=== PATIENT | female | born 1940 | race Caucasian/White ===

== ENCOUNTER → 2018-03-24 09:41 | Outpatient (CLI) | payer MEDICARE, SELFPAY ==
--- NOTE | 2018-03-24 09:47 | BI_ITS ---
MAMMOGRAPHY - UNILATERAL SCREENING: RIGHT BREAST REASON FOR EXAM: Female, 77 years old. Routine annual screening examination (unilateral). PERTINENT HISTORY: Personal history of breast cancer status post left mastectomy. TECHNIQUE: TECHNIQUE: Digital examination. Mediolateral oblique (MLO) and craniocaudad (CC) views of both breasts were obtained. CAD: Full Field Digital Mammography with Computer Added Detection was performed. COMPARISON: March 14, 2017, March 12, 2016 FINDINGS: Breast Composition: The breasts are almost entirely fatty. There are no dominant masses or suspicious calcifications. No other significant abnormalities are identified. BI/UNILAT RT SCRN W/CAD IMPRESSION: Stable bilateral screening mammogram. ASSESSMENT CATEGORY: BIRADS Category 2: Benign. A letter regarding these results will be sent to the patient by the facility within 30 days. FOLLOW UP RECOMMENDATION: Yearly follow up mammogram recommended. (A) Approximately 10% of breast cancers are not detected by mammography. A normal mammogram should not delay biopsy of a clinically suspicious abnormality. [id number] Electronically Signed: Parth Kulkarni MD at 18:03 EDT , Service support ,
== END ==
PROVIDERS: Family Provider Preventive Medicine Occupational Medicine; PCP Preventive Medicine Occupational Medicine
DX: Z12.31 Encounter for screening mammogram for malignant neoplasm of breast (principal)
CPT/HCPCS: 77061; 77067; G0279

== ENCOUNTER → 2019-03-27 | Outpatient (CLI) | payer MEDICARE, SELFPAY ==
--- NOTE | 2019-03-27 10:33 | BI_ITS ---
MAMMOGRAPHY - BILATERAL SCREENING REASON FOR EXAM: Female, 78 years old. Routine annual screening examination. PERTINENT HISTORY: Personal history of breast cancer. Prior left mastectomy. Aunt with breast cancer. TECHNIQUE: Digital bilateral breast scout (3D mammographic acquisition) in the CC and MLO projections. 2-D mediolateral oblique (MLO) and craniocaudad (CC) views of both breasts were obtained. CAD: Full Field Digital Mammography with Computer Added Detection was performed. COMPARISON: Comparison is made with prior study dated March 24, 2018 and March 14, 2017. FINDINGS: Breast Composition: There are scattered areas of fibroglandular density. There are no dominant masses or suspicious calcifications. No other significant abnormalities are identified. There has been no significant change since the prior study. BI/SCREEN MAMM (CAD) W/SCOUT UNI R IMPRESSION: Stable bilateral screening mammogram. Yearly follow-up mammogram recommended. (A) ASSESSMENT CATEGORY: BIRADS Category 1: Negative. A letter regarding these results will be sent to the patient by the facility within 30 days. Approximately 10% of breast cancers are not detected by mammography. A normal mammogram should not delay biopsy of a clinically suspicious abnormality. [id number] Electronically Signed: Art Pardo, at 14:01 EDT , Service support ,
== END | disposition home or self-care (01) ==
LOC: OPBI 10:29
PROVIDERS: Family Provider Preventive Medicine Occupational Medicine; PCP Preventive Medicine Occupational Medicine
DX: Z12.31 Encounter for screening mammogram for malignant neoplasm of breast (principal)
CPT/HCPCS: 77061; 77067; G0279

== ENCOUNTER → 2020-03-28 09:53 | Outpatient (CLI) | payer MEDICARE, SELFPAY ==
--- NOTE | 2020-03-28 09:54 | BI_ITS ---
MAMMOGRAPHY - UNILATERAL SCREENING: RIGHT BREAST REASON FOR EXAM: Female, 79 years old. Routine annual screening examination (unilateral). PERTINENT HISTORY: Personal history of breast cancer. Prior left mastectomy and chemotherapy.. TECHNIQUE: Digital unilateral breast scout (3D mammographic acquisition) in the CC and MLO projections. 2-D mediolateral oblique (MLO) and craniocaudad (CC) views of both breasts were obtained. CAD: Full Field Digital Mammography with Computer Added Detection was performed. COMPARISON: Comparison is made with prior study dated March 27, 2019 and March 24, 2018. FINDINGS: Breast Composition: There are scattered areas of fibroglandular density. There are no dominant masses or suspicious calcifications. No other significant abnormalities are identified. There has been no significant change since the prior study. BI/SCREEN MAMM (CAD) W/SCOUT UNI R IMPRESSION: Stable unilateral screening mammogram. Yearly follow-up mammogram recommended. (A) ASSESSMENT CATEGORY: BIRADS Category 1: Negative. A letter regarding these results will be sent to the patient by the facility within 30 days. Approximately 10% of breast cancers are not detected by mammography. A normal mammogram should not delay biopsy of a clinically suspicious abnormality. [id number] Electronically Signed: Art Pardo, at 10:45 EDT , Service support ,
== END ==
PROVIDERS: PCP Preventive Medicine Occupational Medicine; Referring Provider Preventive Medicine Occupational Medicine; Visit Provider Preventive Medicine Occupational Medicine
DX: Z12.31 Encounter for screening mammogram for malignant neoplasm of breast (principal)
CPT/HCPCS: 77063; 77067

== ENCOUNTER → 2021-04-10 13:18 | Outpatient (CLI) | payer MEDICARE, SELFPAY ==
--- NOTE | 2021-04-10 13:23 | BI_ITS ---
MAMMOGRAPHY - UNILATERAL SCREENING: RIGHT BREAST REASON FOR EXAM: Female, 80 years old. Routine annual screening examination (unilateral). PERTINENT HISTORY: Personal history of breast cancer. The patient is status post left mastectomy. TECHNIQUE: Digital unilateral breast scout (3D mammographic acquisition) in the CC and MLO projections. 2-D mediolateral oblique (MLO) and craniocaudad (CC) views of both breasts were obtained. CAD: Full Field Digital Mammography with Computer Added Detection was performed. COMPARISON: Comparison is made with prior examination dated 03/28/2020 and 03/27/2019. FINDINGS: Breast Composition: There are scattered areas of fibroglandular density. There are no dominant masses or suspicious calcifications. There are 2 small well defined nodules in the upper lateral portion of the right breast. The largest measures 6.5 mm and most likely represents a small cyst. Correlation with ultrasound is recommended. No other significant abnormalities are identified. BI/SCREEN MAMM (CAD) W/SCOUT UNI R IMPRESSION: Small well-defined nodular density seen in the upper lateral aspect of the right breast as described. Correlation with ultrasound is recommended. ASSESSMENT CATEGORY: BIRADS Category 0: Incomplete. Need additional imaging evaluation. A letter regarding these results will be sent to the patient by the facility within 30 days. Approximately 10% of breast cancers are not detected by mammography. A normal mammogram should not delay biopsy of a clinically suspicious abnormality. [id number] Electronically Signed: Art Pardo MD at 14:47 EDT , Service support ,
== END ==
PROVIDERS: PCP Preventive Medicine Occupational Medicine; Referring Provider Preventive Medicine Occupational Medicine; Visit Provider Preventive Medicine Occupational Medicine
DX: Z12.31 Encounter for screening mammogram for malignant neoplasm of breast (principal)
CPT/HCPCS: 77063; 77067

== ENCOUNTER → 2021-04-17 12:43 | Outpatient (CLI) | payer MEDICARE, SELFPAY ==
--- NOTE | 2021-04-17 12:45 | US_ITS ---
STUDY: ULTRASOUND BREAST - RIGHT REASON FOR EXAM: Female, 80 years old. TECHNIQUE: Axial and longitudinal images of the RIGHT breast were performed with a high resolution ultrasound transducer. # OF IMAGES: 52 COMPARISON: None. FINDINGS: RIGHT Breast: There is 0.5 cm cyst involving the right breast at 12 o''clock. There is another tiny cyst measures 0.38 cm at the 11 o''clock this is 3 cm from the nipple. No other masses or cysts. Electronically Signed: Addie Duarte, at 15:02 EDT Tel , Service support , US/Breast Limited Unilateral
== END ==
PROVIDERS: PCP Preventive Medicine Occupational Medicine; Referring Provider Preventive Medicine Occupational Medicine; Visit Provider Preventive Medicine Occupational Medicine
DX: N60.01 Solitary cyst of right breast (principal)
CPT/HCPCS: 76642

== ENCOUNTER 2021-05-26 13:00 | Outpatient (RCR) | payer MEDICARE, SELFPAY ==
--- NOTE | 2021-04-28 13:36 | HP.PTEVAL_ITS ---
Patient's Visit Information TIFFANY DOMÍNGUEZ is a 80 year old F referred to Physical Therapy by Dr. Michael Moore DO with a diagnosis of Imbalance. Date of Evaluation: 04/28/21 Physical Therapist: ELENI Saxena - Visit Plan Frequency: 2x /Week Duration: 6 Weeks Plan: 2X/ week for 6 weeks for balance activities, gait training, LE strengthening, functional activities, with HEP - Subjective Pt reports that she has not fallen for 2 months now. She walks with WBQC and is very unsteady. 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 She reports that she has fallen before. She reports that she does have feeling in her feet. She reports that her R leg will collapse on her and reports weakness on that side. She has to go up stairs one step at a time with a railing. She has steps at home but does not have to use them everyday. Her bed and bath are all on one floor. She lives with her . She stopped driving. Sit to stand she has to use her arms to get out of a chair. She has a raised toilet seat with handles. No dizziness. Sometimes she gets right parker discomfort a couple times a week. If she were to fall she would not be able to get up from the floor by herself. Her can not lift her when she falls. She does only a little bit of cooking cause she eats out. Her does the laundry cause it is on a different floor. She sleeps good at night. Pt would like to get to the point where she can drive. Pt feels that she may be getting alzheimers as her mom had it.... and she is having memory issues. - Objective Gait: walks with short steps, decrease DF, decrease stride, decrease proper use of her WBQC, and imbalance. She will stop and grap therapist or other bject to regroup her balance. Pt requires min A walking into the dept. Posture: fW head posture and rounded shoulders and trunk. Sit to stand: uses B UE to push self up and holds onto the chair for quite awhile to make sure she has her balance. LE MMT: B hip flex 4-/5, Knee ext and flex 4/5, B hip abd/add in supine 4-/5, Bridge (1/2 normal ROM). Gait with a front wheeled walker... needed encouragement to walk faster but walked with more of an even stride and more of a smoother gait pattern. Pt is able to move one foot to each direction in a side stepping motion with min A of therapist. Pt is able to do standing heel and toe raises with mod A for balance by therapist. Tinetti 7 - Balance Scores Tinetti Balance Score: 5 Tinetti Gait Score: 2 Tinetti Balance & Gait Score: 7 - Goals Goal 1:: I HEP Goal Time Frame: 4-6 Weeks Goal 2:: Increase LE strength to be able to get out of a chair with 1 arm on the chair on first attempt X 10 Goal Time Frame: 4-6 Weeks Goal 3:: Be able to walk with least restrictive device with SBA with smooth gait pattern and equal step length. Goal Time Frame: 4-6 Weeks Goal 4:: Score 12 point in Tinetti to decrease fall risk up from a 7 at eval Goal Time Frame: 4-6 Weeks Goal 5:: Sit and walk with more upright posture Goal Time Frame: 4-6 Weeks - Rehabilitation Potential Rehabilitation Potential: Good - Anticipated Interventions Patient/Client Instruction: Educate patient on: Condition, Plan of Care For the Purpose of:: To decrease pain, To improve nutrient delivery to tissue, To increase oxygenation perfusion, To improve muscle performance and motor function, To improve ability to perform ADL's, To increase tolerance to activity/condition/position, To improve performance and independence with ADL's, To decrease level of supervision to perform tasks, To improve ability of physical actions for home/community/work/leisure, To improve gait and locomotor functions, To improve health of tissue, To decrease soft tissue restriction, To increase flexibility/ROM, To improve endurance, To improve balance, To improve safety with gait Therapeutic Exercise to Include: Strength training, Endurance training, Balance training, Coordination, Postural training, Flexibilty training, Gait and locomotor training, Neuromotor development, Active ROM, Dynamic Lumbar Stabilization For the Purpose of:: To decrease pain, To improve nutrient delivery to tissue, To improve muscle performance and motor function, To improve ability to perform ADL's, To increase tolerance to activity/condition/position, To improve performance and independence with ADL's, To decrease level of supervision to perform tasks, To improve ability of physical actions for home/community/work/leisure, To improve gait and locomotor functions, To improve health of tissue, To decrease soft tissue restriction, To increase flexibility/ROM, To improve endurance, To improve balance, To improve safety with gait, To improve safety Functional Training to Include: ADL Training, Gait training For the Purpose of:: To improve muscle performance and motor function, To improve ability to perform ADL's, To increase tolerance to activity/con dition/position, To improve performance and independence with ADL's, To decrease level of supervision to perform tasks, To improve ability of physical actions for home/community/work/leisure, To improve gait and locomotor functions, To improve health of tissue, To decrease soft tissue restriction, To improve endurance, To improve balance, To improve safety with gait Thank you for the opportunity to evaluate your patient. For Medicare and Medicare HMO plans, please review the plan of care and approve it. It will need to be FAXED BACK to us at [phone] for Medicare purposes. For Medicare only, by signing this I certify the plan of care. Please let me know if there are questions or concerns regarding this plan of care. Physician Signature: Date:
--- NOTE | 2021-05-26 14:35 | HP.PTDCSUM ---
It has been my pleasure to treat TIFFANY DOMÍNGUEZ referred by Dr. Michael Moore DO, with the diagnosis of Imbalance for a total of 9 visit(s). Discharge Date: 05/26/21 Please see the following information for a summary of their discharge status. Subjective: Pt walking in with a front wheeled walker today. She reports that she feels that she can do more with her walker and feels more stable. She has an indoor walker that she uses all the time and also an out door walker. Pt wants to continue wtih her HEP for now. bilat knees Pain Intensity (Out of 10): 1 % Improvement: 50 Objective/Function: Gait: pt walks with a faster makayla with her front wheeled walker but needs verbal cues to go heel to toe. Stairs: up and down stairs step two pattern with 2 hand rails. Tinetti 20 Goal 1:: I HEP Goal Progress: Goal Met Goal 2:: Increase LE strength to be able to get out of a chair with 1 arm on the chair on first attempt X 10 Goal Progress: Progressing Goal 3:: Be able to walk with least restrictive device with SBA with smooth gait pattern and equal step length. Goal Progress: Goal Met Goal 4:: Score 12 point in Tinetti to decrease fall risk up from a 7 at eval Goal Progress: Goal Met Goal 5:: Sit and walk with more upright posture Goal Progress: Goal Met Plan: DC PT to HEP Discharge Comments: DC PT to HEP previously given If there are questions or concerns regarding this patient's physical therapy, please feel free to call me at [phone]. Thank you for the referral of this patient. Sincerely, Jennifer Cam, MPT Balance/Gait/Functional tests - Balance/Special Test Scores Tinetti Balance Score: 12 Tinetti Gait Score: 8 Tinetti Balance & Gait Score: 20 Lower Extremity Functional Score: 45
== END 2021-05-26 19:00 | disposition home or self-care (01) ==
LOC: PT 13:00
PROVIDERS: PCP Preventive Medicine Occupational Medicine; Referring Provider Preventive Medicine Occupational Medicine; Visit Provider Preventive Medicine Occupational Medicine
DX: R26.89 Other abnormalities of gait and mobility (principal)
CPT/HCPCS: 97110; 97116; 97162; 97530

== ENCOUNTER 2022-04-02 20:53 | Observation (INO) | payer MEDICARE, SELFPAY ==
[2022-04-02 20:55] VITALS: BP 152/62; PULSE 98; RESP 16; TEMP 36.9; O2SAT 98; BMI 27.6
--- NOTE | 2022-04-02 21:13 | EKG12_ITS ---
Test Reason : DYSRHYTHMIA Blood Pressure : / mmHG Vent. Rate : 084 BPM Atrial Rate : 084 BPM P-R Int : 118 ms QRS Dur : 088 ms QT Int : 378 ms P-R-T Axes : 060 026 059 degrees QTc Int : 446 ms Normal sinus rhythm Nonspecific ST and T wave abnormality Abnormal ECG Confirmed by FLORY PATTERSON, SORAYA ([id number]), market editor DONTE LAGUNA ([id number]) on 04/05/2022 10:50:22 AM Referred By: MAVERICK Confirmed By:SORAYA RUTH MD
--- NOTE | 2022-04-02 21:13 | RAD_ITS ---
STUDY: AP PORTABLE UPRIGHT CHEST X-RAY OF 2124 HOURS ON 04/02/2022 REASON FOR EXAM: 81-year-old female with cough. TECHNIQUE: A single view portable AP upright chest x-ray was performed per protocol. COMPARISON: None. FINDINGS: Mild demineralization. No cardiomegaly. Mild emphysema. No pulmonary infiltrates, atelectasis, effusion, or pulmonary mass lesions. No pneumonia, pneumonitis, or bronchitis. RAD/Chest 1 View (Portable) IMPRESSION: 1. Mild emphysema. 2. No other evidence of active cardiopulmonary disease. 3. Mild demineralization. Electronically Signed: Markus Jane MD at 22:05 EDT ,
[2022-04-02] MEDS: Benzonatate 100 MG Capsule PO (21:21)
[2022-04-02 21:23] LABS: Absolute Lymphocyte Count 1.06 X10^3/uL (0.83-4.51); Absolute Neutrophil Count 6.2 X10^3/uL (2.0-7.7); Basophil# 0.03 X10^3/uL; Basophil% 0.4 % (0-1); Eosinophil# 0.12 X10^3/uL; Eosinophils% 1.4 % (0-5); Hematocrit 37.2 % (37-47); Hemoglobin 12.6 g/dL (12.0-15.0); Lymphocyte # 1.06 X10^3/ul (0.83-4.51); Lymphocyte % 12.5 % (19-41); Mean Corp Hgb Conc 33.9 g/dL (32-36); Mean Corpuscular Hgb 30.7 pg (27.0-32.0); Mean Corpuscular Volume 90.7 fL (81-99); Mean Platelet Vol. 9.7 fl (6.2-12.0); Monocyte% 11.8 % (0-10); NRBC Flagged by Analyzer 0 % (0-5); Neutrophil # 6.24 X10^3/uL (2.7-7.7); Neutrophil % 73.4 % (47-70); Platelet Count 200 K/mm3 (150-450); RBC Distribution Width CV 13.6 % (11.6-14.6); RBC Distribution Width SD 45.1 fl (35.1-43.9); White Blood Count 8.5 K/mm3 (4.4-11.0)
[2022-04-02 21:45] LABS: Bacteria 0 SEEN /hpf (None Seen); Mucous, Urine 0 SEEN /hpf (<or=2+); Red Blood Cells-Urine 0 SEEN /hpf (0-5); Squamous Epithelial Cells - UA 0 SEEN /hpf (5-10); White Blood Cells 0 SEEN /hpf (0-5)
[2022-04-02 21:53] LABS: Anion Gap 6 (5-15); BUN 28 mg/dL (7-18); BUN/Creat Ratio 20.7 RATIO (10-20); Calcium,Total 9.7 mg/dL (8.5-10.1); Chloride 102 mmol/L (98-107); Creatinine, Serum 1.35 mg/dL (0.55-1.02); EST Glomerular Filtration Rate 40 mL/min (>60); Est Glom Filt Rate - Afr Amer 49 mL/min (>60); Estimated Creatinine Clearance 31.63 ml/min; Glucose 147 mg/dL (74-106); Potassium 3.9 mmol/L (3.5-5.1); Sodium Level 135 mmol/L (136-145); Troponin-I HS 13 pg/mL (3.0-54.0)
[2022-04-02 21:59] LABS: Color, Urine Yellow (Yellow); Glucose, Dipstick Normal (Normal); Ketone-Dipstick Negative (Negative); Leukocyte Esterase-Dipstick Negative /ul (Negative); Nitrite-Dipstick Negative (Negative); Occult Blood-Urine Negative /ul (Negative); Protein-Dipstick 15 mg/dl (Negative); Urine Bilirubin Dipstick Negative (Negative); Urine Clarity Clear (Clear); Urine Urobilinogen Normal (Normal)
[2022-04-02 22:36] VITALS: BP 143/73; PULSE 85; RESP 18; O2SAT 99
--- NOTE | 2022-04-02 22:56 | EX.ED.DYSGE1 ---
HPI History of Present Illness Chief Complaint: Weakness Informant: patient, spouse/S.O. and family Onset/Context/Timing Onset: Days (3 days) Context: Gradual Onset Timing: Waxes and wanes Narrative Narrative: Patient presents via EMS secondary to generalized weakness. She has had cough and URI symptoms for the last 3 days as well. She did fall tonight. As she was trying to sit in her chair she slipped off the edge and fell to the floor. She denies injury. has had been having more trouble assisting her with ambulation at home secondary to her weakness. She has not had fever or chills. She is coughing up clear sputum. She states when she coughs she has abdominal pain. No urinary symptoms. [facility] Medical History Breast cancer Hydrocephalus Hyperlipidemia Hypertension Home Medications allopurinol 300 mg PO DAILY 04/02/22 [History Last Taken Unknown] atenolol-chlorthalidone 50 tab PO DAILY 04/02/22 [History Last Taken Unknown] lovastatin 20 mg PO DAILY 04/02/22 [History Last Taken Unknown] Allergy/AdvReac Type Severity Reaction Status Date / Time No Known Allergies Allergy Verified 04/02/22 20:59 Surgical History H/O left mastectomy H/O: hysterectomy Social History Smoking Status: Never smoker ROS ROS ED Constitutional Constitutional ED: Denies chills or fever(s) Eyes Eyes: Denies change in vision ENT ENT ED: Denies sore throat Cardiovascular Cardiovascular: Denies chest pain Respiratory/Chest Respiratory/Chest: Reports cough and sputum; Denies dyspnea Gastrointestinal Gastrointestinal: Denies abdominal pain, nausea or vomiting Genitourinary Genitourinary ED: Denies dysuria Musculoskeletal Musculoskeletal: Denies back pain Integumentary Denies rash Neurologic Neurologic: Reports weakness; Denies headache(s) or paresthesias Allergic/Immunologic Allergic/Immunologic ED: Denies urticaria EXAM Physical Exam Const Vital Signs: 04/02/22 20:55 04/02/22 22:36 Temperature 98.4 F Temperature Source Oral Pulse Rate 98 85 Respiratory Rate 16 18 Blood Pressure 152/62 H 143/73 H Blood Pressure Mean 92 96 Pulse Ox 98 99 Oxygen Delivery Method Room Air Room Air Positive well nourished and well developed General Appearance ED: well developed HEENT Reports moist mucous membranes Eyes PERRL and EOMs intact bilaterally Neck supple Chest Wall inspection of chest normal and palpation of chest normal Resp normal respiratory effort and clear to auscultation bilaterally Cardio regular rate and regular rhythm GI non-tender Auscultation: hypoactive bowel sounds Palpation: soft Extremity normal to inspection Neuro oriented x3 Neuro Narrative: No focal neurologic deficits. Sensorium / Orientation: alert Psych mental status grossly normal Skin no rashes or lesions noted MDM MDM MDM Narrative Medical decision making narrative: COVID and influenza swab sent. Chest x-ray and urinalysis ordered. Lab work obtained. Patient given Tessalon Perles for cough. Lab Data Attestation: I reviewed the patient's lab results. Labs: Laboratory Results - last 24 hr 04/02/22 04/02/22 04/02/22 21:15 21:15 21:38 WBC 8.5 RBC 4.10 L Hgb 12.6 Hct 37.2 MCV 90.7 MCH 30.7 MCHC 33.9 RDW Std Deviation 45.1 H RDW Coeff of Ari 13.6 Plt Count 200 MPV 9.7 Immature Gran % (Auto) 0.500 Neut % (Auto) 73.4 H Lymph % (Auto) 12.5 L Mellette % (Auto) 11.8 H Eos % (Auto) 1.4 Baso % (Auto) 0.4 Absolute Neuts (auto) 6.2 Absolute Lymphs (auto) 1.06 Nucleated RBC % 0 Sodium 135 L Potassium 3.9 Chloride 102 Carbon Dioxide 27.0 Anion Gap 6 BUN 28 H Creatinine 1.35 H Estim Creat Clear Calc 31.63 Est GFR (MDRD) Af Amer 49 L Est GFR (MDRD) Non-Af 40 L BUN/Creatinine Ratio 20.7 H Glucose 147 H Calcium 9.7 Troponin I High Sens 13 Urine Color Yellow Urine Clarity Clear Urine pH 6.0 Ur Specific [place] 1.020 Urine Protein 15 H Urine Glucose (UA) Normal Urine Ketones Negative Urine Occult Blood Negative Urine Nitrite Negative Urine Bilirubin Negative Urine Urobilinogen Normal Ur Leukocyte Esterase Negative Urine RBC 0 SEEN Urine WBC 0 SEEN Ur Squamous Epith Cells 0 SEEN Urine Bacteria 0 SEEN Urine Mucus 0 SEEN Radiography Chest X-Ray - ED: 1 View, Read by ED Physician and Chronic Changes Diagnostic Testing: Clinical Impression(s) from Imaging Studies Chest X-Ray 04/02/22 21:13 IMPRESSION: 1. Mild emphysema. 2. No other evidence of active cardiopulmonary disease. 3. Mild demineralization. Electronically Signed: Markus Jane MD at 22:05 EDT , EKG Initial EKG: Attestation: I personally reviewed and interpreted this EKG as follows: Interpretation: Sinus Rhythm (Sinus at 84. Mild ST depression in the anterior lateral leads.) Treatment and Re-Evaluation Narrative: On repeat evaluation patient does feel her cough is somewhat improved. CBC is unremarkable. Chemistry studies reveal a BUN of 28 and a creatinine of 1.35. I was able to find prior labs from early 2020 with creatinines of 1.23 and 1.25. Troponin is normal. Urinalysis shows no acute infection. Chest x-ray per my interpretation shows chronic changes with no focal infiltrate. Radiology interpretation is reviewed. On repeat evaluation patient resting comfortably. We initially had discussed going home with an antibiotic for bronchitis. I did discuss with her that the illness may all be viral in nature as well. raises concern about her safety at home with her weakness. He tries to help her as best as possible but has been having more difficulty. Patient did get up with nursing. Two-person assist was required to help her with her walker. She was able to get back to a chair to sit. At this time she is concerned about her weakness. I will speak with hospitalist regarding observation overnight for evaluation by physical therapy and strength building. Discharge Plan Triage Chief Complaint: Weakness ED Provider: Mitzi Drew Dx/Rx/DC Orders Clinical Impression: Bronchitis, Generalized weakness, Declining functional status Prescriptions: No Action atenolol-chlorthalidone 50-25 mg tablet 50 tab PO DAILY RF: 0 allopurinol 300 mg tablet 300 mg PO DAILY RF: 0 lovastatin 20 mg tablet 20 mg PO DAILY RF: 0 Primary Care Provider: Michael Moore Referrals: Michael Moore DO [Primary Care Provider] - Disposition Disposition: Acute Care Hospital [facility]
[2022-04-02] MEDS: Azithromycin 250 MG Tablet 500 MG PO (23:08)
--- NOTE | 2022-04-02 23:12 | PCM.HP.STD ---
HPI - General General Date of Admission: 04/02/22 HPI Narrative TIFFANY DOMÍNGUEZ, is a 81 F with a significant history of hypertension; breast cancer status post left mastectomy; debility with use of power chair at home who presents to the emergency department with a fall. Reportedly patient slid from her power chair on the day of presentation. Patient was brought to the emergency department by the paramedics. Also patient's from slid from her bed for the past 2 days. Reportedly patient's marta down. Patient has been weak. Patient lives at home with her elderly . Family also come in and help patient. Patient thinks that her multiple falls is related to her history of hydrocephalus. Reportedly patient has followed-up with multiple neurologist. Per patient ; on a recent encounter with neurology patient symptoms were attributed to dementia and not hydrocephalus. Her does not seem to agree with the diagnosis of dementia causing her symptoms. Per patient patient was prescribed very expensive drug recently for dementia. Patient's thinks that nobody is listening to him in regards to patient's symptoms coming from hydrocephalus. However patient's report that in the past shunt placement was brought up by patient was not interested. In the past 3 days patient has had a productive cough. She is unable to describe the color of her sputum. She denies any fever or chills. She reports poor appetite. [facility] Medical History Breast cancer Hydrocephalus Hyperlipidemia Hypertension Kidney disease Migraines Home Medications allopurinol 300 mg PO DAILY 04/02/22 [History Last Taken Unknown] atenolol-chlorthalidone 50 tab PO DAILY 04/02/22 [History Last Taken Unknown] lovastatin 20 mg PO DAILY 04/02/22 [History Last Taken 04/01/22] Allergy/AdvReac Type Severity Reaction Status Date / Time No Known Allergies Allergy Verified 04/02/22 20:59 Family History Other Alzheimer's dementia CVA (cerebral vascular accident) Diabetes Surgical History H/O left mastectomy H/O: hysterectomy S/P hysterectomy Social History Smoking Status: Never smoker ROS ROS Narrative Pertinent positives and pertinent negatives as noted in HPI. All other systems were reviewed and are negative. Vital Signs Vital Signs Vital Signs: 04/02/22 20:55 04/02/22 22:36 Temperature 98.4 F Temperature Source Oral Pulse Rate 98 85 Respiratory Rate 16 18 Blood Pressure 152/62 H 143/73 H Blood Pressure Mean 92 96 Pulse Ox 98 99 Oxygen Delivery Method Room Air Room Air Weight Weight: 77.8 kg Body Mass Index (BMI) 27.6 Physical Exam Narrative Physical exam: General: Well-nourished, well-developed. Head: Normocephalic, atraumatic, no tenderness Eyes: Vision is grossly intact. EOMI ENT, no trauma, moist mucous membranes, no rhinorrhea Neck: Nontender, full range of motion CVS: Regular rate and rhythm. S1-S2 present. No murmur, gallop or rub. Respiratory : clear to auscultation bilaterally, chest wall nontender, no wheezing Abdomen: Soft, nontender, nondistended, normal bowel sounds, no masses : Deferred Back: Nontender, no CVA tenderness, no midline spinal tenderness, deformities, step-offs Extremities: Left foot pitting edema 3+3 (states it is chronic); right foot pitting edema 1-2+ (stated it is chronic). Nontender full range of motion, no trauma Skin: Normal color, no trauma, abrasions Neuro: Alert, oriented, cranial nerves II through XII grossly intact. Psychiatry: Normal mood. Normal affect. Not depressed. Not anxious. Results Lab / Micro Data Result Diagrams: 04/02/22 21:15 04/02/22 21:15 Labs: Laboratory Results - last 24 hr 04/02/22 21:15: WBC 8.5, RBC 4.10 L, Hgb 12.6, Hct 37.2, MCV 90.7, MCH 30.7, MCHC 33.9, RDW Std Deviation 45.1 H, RDW Coeff of Ari 13.6, Plt Count 200, MPV 9.7, Immature Gran % (Auto) 0.500, Neut % (Auto) 73.4 H, Lymph % (Auto) 12.5 L, [place] % (Auto) 11.8 H, Eos % (Auto) 1.4, Baso % (Auto) 0.4, Absolute Neuts (auto) 6.2, Absolute Lymphs (auto) 1.06, Nucleated RBC % 0 04/02/22 21:15: Sodium 135 L, Potassium 3.9, Chloride 102, Carbon Dioxide 27.0, Anion Gap 6, BUN 28 H, Creatinine 1.35 H, Estim Creat Clear Calc 31.63, Est GFR (MDRD) Af Amer 49 L, Est GFR (MDRD) Non-Af 40 L, BUN/Creatinine Ratio 20.7 H, Glucose 147 H, Calcium 9.7, Troponin I High Sens 13 04/02/22 21:38: Urine Color Yellow, Urine Clarity Clear, Urine pH 6.0, Ur Specific [place] 1.020, Urine Protein 15 H, Urine Glucose (UA) Normal, Urine Ketones Negative, Urine Occult Blood Negative, Urine Nitrite Negative, Urine Bilirubin Negative, Urine Urobilinogen Normal, Ur Leukocyte Esterase Negative, Urine RBC 0 SEEN, Urine WBC 0 SEEN, Ur Squamous Epith Cells 0 SEEN, Urine Bacteria 0 SEEN, Urine Mucus 0 SEEN Micro: Microbiology 04/02/22 21:17 Nasal Secretion SARS-CoV-2 & FLU Antigen (Rapid) - Final Radiology Impression Chest X-Ray 04/02/22 21:13 IMPRESSION: 1. Mild emphysema. 2. No other evidence of active cardiopulmonary disease. 3. Mild demineralization. Electronically Signed: Markus Jane MD at 22:05 EDT Reading Location ID and State: [address] [place] [address] Tel , Service support , Assessment & Plan Assessment/Plan (1) Multiple falls: PLAN: Debility with multiple Falls PT and OT to work with patient for strengthening balance training. Case management consult for disposition. Will check TSH. Review of community records shows that vitamin D level on 03/26/2022 was 38.2, normal. Acute Bronchitis Chest x-ray was visualized and independently interpreted and I agree with radiologist interpretation above. Received azithromycin and Tessalon Perles at the emergency department. Per family who was at the bedside and patient, Tessalon Perles received at the ED helped patient a lot. Tessalon Perles continued on scheduled basis CBC showed normal white count. Will trend CBC. History of hydrocephalus. 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 Head CT ordered. Follow. Hypertension Blood pressure is not within goal Atenolol and chlorthalidone continued. Trend blood pressure and adjust blood pressure medications. CKD stage IIIb Had creatinine on presentation was 1.35; BUN of 28. Review of community records show that on 03/26/2022 her creatinine was 1.46 and a BUN was 31; GFR was 35. Also on 03/16/2021 her creatinine was 1.23; BUN 25 and GFR 42. Stable. DVT prophylaxis Subcutaneous Lovenox ordered. Charges/Coding Visit Charges OBSV E&M: 57339 Initial observation care L2
[2022-04-02 23:49] VITALS: BP 143/73; PULSE 85; RESP 18; TEMP 36.9; O2SAT 99
[2022-04-03] VITALS (7 sets, daily range): BP systolic 113–143; BP diastolic 60–90; PULSE 62–87; RESP 18; TEMP 36.6–37.6; O2SAT 96–100; BMI 27.1
--- NOTE | 2022-04-03 00:40 | CT_ITS ---
STUDY: CT BRAIN WITHOUT CONTRAST ENHANCEMENT OF 0041 HOURS ON 04/03/2022 REASON FOR EXAM: 81-year-old female with fall trauma to head with headache. RADIATION DOSAGE (If Supplied By Facility): CTDIvol = ( 44.99 ) mGy, DLP = ( 863.60 ) mGycm TECHNIQUE: Transaxial CT imaging of the brain was performed without administration of intravenous contrast material. COMPARISON: No relevant priors. FINDINGS: Disproportionate moderate central atrophy and mild cortical atrophy, which can sometimes be indicative of low pressure hydrocephalus. No subdural, epidural, or intracerebral hematoma, hemorrhage or contusion. No ischemic or hemorrhagic cerebral infarction. Normal calvarium without linear or depressed skull fractures. Moderate bilateral ethmoid chronic sinusitis. CT/Brain/Head without Contrast IMPRESSION: 1. No subdural, epidural, or intracerebral hematoma, hemorrhage or contusion. 2. Disproportionate moderate central atrophy and mild cortical atrophy, which can sometimes be indicative of a low pressure hydrocephalus. 3. No ischemic or hemorrhagic cerebral infarction or intracranial neoplasms. 4. Normal calvarium without linear or depressed skull fractures. 5. Moderate bilateral ethmoid chronic sinusitis. Electronically Signed: Markus Jane MD at 1:43 EDT ,
[2022-04-03] MEDS: guaiFENesin 10 ML UDC (200MG/10ML) 15 ML PO ×2 (02:06→11:45)
[2022-04-03] MEDS: Benzonatate 100 MG Capsule PO ×4 (05:17→22:39)
[2022-04-03] MEDS: Senna/Docusate Sodium 1 Tablet 2 TABLET PO (05:17)
[2022-04-03 06:40] LABS: Absolute Lymphocyte Count 1.01 X10^3/uL (0.83-4.51); Absolute Neutrophil Count 5.5 X10^3/uL (2.0-7.7); Basophil# 0.03 X10^3/uL; Basophil% 0.4 % (0-1); Eosinophil# 0.21 X10^3/uL; Eosinophils% 2.7 % (0-5); Hematocrit 35.9 % (37-47); Hemoglobin 12.3 g/dL (12.0-15.0); Lymphocyte # 1.01 X10^3/ul (0.83-4.51); Lymphocyte % 13.2 % (19-41); Mean Corp Hgb Conc 34.3 g/dL (32-36); Mean Corpuscular Hgb 31.1 pg (27.0-32.0); Mean Corpuscular Volume 90.9 fL (81-99); Mean Platelet Vol. 9.9 fl (6.2-12.0); Monocyte# 0.93 X10^3/uL; Monocyte% 12.1 % (0-10); NRBC Flagged by Analyzer 0 % (0-5); Neutrophil # 5.46 X10^3/uL (2.7-7.7); Neutrophil % 71.3 % (47-70); Platelet Count 190 K/mm3 (150-450); RBC Distribution Width CV 13.6 % (11.6-14.6); RBC Distribution Width SD 45.1 fl (35.1-43.9); Red Blood Count 3.95 M/mm3 (4.2-5.4); White Blood Count 7.7 K/mm3 (4.4-11.0)
[2022-04-03 07:21] LABS: Anion Gap 8 (5-15); BUN 25 mg/dL (7-18); Calcium,Total 9.6 mg/dL (8.5-10.1); Chloride 100 mmol/L (98-107); Creatinine, Serum 1.25 mg/dL (0.55-1.02); EST Glomerular Filtration Rate 44 mL/min (>60); Est Glom Filt Rate - Afr Amer 53 mL/min (>60); Estimated Creatinine Clearance 34.16 ml/min; Glucose 116 mg/dL (74-106); Potassium 2.7 mmol/L (3.5-5.1); Sodium Level 136 mmol/L (136-145); Thyroid Stim Hormone (TSH) 3.39 uIU/mL (0.358-3.74)
[2022-04-03] MEDS: Allopurinol 300 MG Tablet PO (08:23)
[2022-04-03 08:40] LABS: Magnesium 1.7 mg/dL (1.6-2.6); Phosphorus 2.8 mg/dL (2.5-4.9)
--- NOTE | 2022-04-03 10:25 | CASEMGMT ---
RN CM Face to Face with patient for initial transition planning/care coordination assessment. RN CM introduced self and role at [facility]. Patient sitting, alert and oriented. Patient willing to participate in assessment and is able to answer all questions appropriately. Care providers, pharmacy, and demographics verified. Patient wishes to discharge home but willing to go to SNF if needed as patient was moderate assist with therapy. Patient states she has no further needs or concerns at this time. CM to follow for discharge planning needs that may arise. PCP: Teresa Specialists: none Preferred Pharmacy: [facility] Insurance: [employer] [facility] Prescription Benefit: yes Living Will/HPOA: none LNOK: , sister Living Arrangements: Patient lives with in a 2 story home with bed and bath on first floor. Patient states her has been assisting wiht ADLs Transportation: DME/HHC: Patient states she has raised toilet, cane, walker, and grab bars at home. Patient denies previous HHC or SNF. Disposition Plan: Anticipate SNF at discharge. SW notified. Roslyn RUSS, RN, CM
--- NOTE | 2022-04-03 10:28 | PN.HOSP_ITS ---
Subjective Subjective Feels little bit better today but still weak. She is not coughing as much and lung sounds are okay. Objective Data Objective Data Vital Signs: Vital Signs Temp Pulse Resp BP Pulse Ox 97.9 F 87 18 126/89 H 99 04/03/22 05:15 04/03/22 05:15 04/03/22 05:15 04/03/22 05:15 04/03/22 05:15 Oxygen Delivery Method Room Air Weight: 167 lb 15.876 oz Body Mass Index (BMI) 27.1 Lab / Micro Data Result Diagrams: 04/03/22 06:20 04/03/22 06:20 Labs: Laboratory Results - last 24 hr 04/02/22 21:15: WBC 8.5, RBC 4.10 L, Hgb 12.6, Hct 37.2, MCV 90.7, MCH 30.7, MCHC 33.9, RDW Std Deviation 45.1 H, RDW Coeff of Ari 13.6, Plt Count 200, MPV 9.7, Immature Gran % (Auto) 0.500, Neut % (Auto) 73.4 H, Lymph % (Auto) 12.5 L, [place] % (Auto) 11.8 H, Eos % (Auto) 1.4, Baso % (Auto) 0.4, Absolute Neuts (auto) 6.2, Absolute Lymphs (auto) 1.06, Nucleated RBC % 0 04/02/22 21:15: Sodium 135 L, Potassium 3.9, Chloride 102, Carbon Dioxide 27.0, Anion Gap 6, BUN 28 H, Creatinine 1.35 H, Estim Creat Clear Calc 31.63, Est GFR (MDRD) Af Amer 49 L, Est GFR (MDRD) Non-Af 40 L, BUN/Creatinine Ratio 20.7 H, Glucose 147 H, Calcium 9.7, Troponin I High Sens 13 04/02/22 21:38: Urine Color Yellow, Urine Clarity Clear, Urine pH 6.0, Ur Specific [place] 1.020, Urine Protein 15 H, Urine Glucose (UA) Normal, Urine Ketones Negative, Urine Occult Blood Negative, Urine Nitrite Negative, Urine B ilirubin Negative, Urine Urobilinogen Normal, Ur Leukocyte Esterase Negative, Urine RBC 0 SEEN, Urine WBC 0 SEEN, Ur Squamous Epith Cells 0 SEEN, Urine Bacteria 0 SEEN, Urine Mucus 0 SEEN 04/03/22 06:02: Phosphorus 2.8, Magnesium 1.7 04/03/22 06:20: WBC 7.7, RBC 3.95 L, Hgb 12.3, Hct 35.9 L, MCV 90.9, MCH 31.1, MCHC 34.3, RDW Std Deviation 45.1 H, RDW Coeff of Ari 13.6, Plt Count 190, MPV 9.9, Immature Gran % (Auto) 0.300, Neut % (Auto) 71.3 H, Lymph % (Auto) 13.2 L, [place] % (Auto) 12.1 H, Eos % (Auto) 2.7, Baso % (Auto) 0.4, Absolute Neuts (auto) 5.5, Absolute Lymphs (auto) 1.01, Nucleated RBC % 0 04/03/22 06:20: Sodium 136, Potassium 2.7 L*, Chloride 100, Carbon Dioxide 28.0, Anion Gap 8, BUN 25 H, Creatinine 1.25 H, Estim Creat Clear Calc 34.16, Est GFR (MDRD) Af Amer 53 L, Est GFR (MDRD) Non-Af 44 L, BUN/Creatinine Ratio 20.0, Glucose 116 H, Calcium 9.6, TSH 3.39 Micro: Microbiology 04/02/22 21:17 Nasal Secretion SARS-CoV-2 & FLU Antigen (Rapid) - Final Radiography Diagnostic Testing: Radiology Impression Chest X-Ray 04/02/22 21:13 IMPRESSION: 1. Mild emphysema. 2. No other evidence of active cardiopulmonary disease. 3. Mild demineralization. Electronically Signed: Markus Jane MD at 22:05 EDT , Brain CT 04/03/22 00:40 IMPRESSION: 1. No subdural, epidural, or intracerebral hematoma, hemorrhage or contusion. 2. Disproportionate moderate central atrophy and mild cortical atrophy, which can sometimes be indicative of a low pressure hydrocephalus. 3. No ischemic or hemorrhagic cerebral infarction or intracranial neoplasms. 4. Normal calvarium without linear or depressed skull fractures. 5. Moderate bilateral ethmoid chronic sinusitis. Electronically Signed: Markus Jane MD at 1:43 EDT , Physical Exam Const alert, oriented x3 and no apparent distress General Appearance: cooperative HEENT normocephalic and moist oral mucous membranes Eyes PERRL, EOMs intact bilaterally and conjunctivae normal Neck supple and no JVD Resp normal respiratory effort, no retractions, no use of accessory muscles and clear to auscultation bilaterally Auscultation: Negative for crackles, rales, rhonchi or wheezes Cardio regular rate, regular rhythm, S1 normal heart sound, S2 normal heart sound and no murmurs GI soft to palpation, non-tender and non-distended; Negative for hepatosplenomegaly Extremity General Extremity: edema; Negative for clubbing or cyanosis Skin no rashes or lesions noted Neuro no focal motor deficits and no sensory deficits noted Psych affect normal Appearance: appropriate Assessment & Plan Assessment/Plan (1) Multiple falls: PLAN: 1. Debility with multiple falls secondary to viral URI ? She been having a cough and upper respiratory symptoms for the last 3 days and she is developed some weakness ? Has had a several falls over the last several days and she says that this happens intermittently. Potassium is low and was replaced today, phosphorus was normal ? TSH was unremarkable ? PT/OT for evaluation and possible placement ? Continue with Dea Horan 2. HTN/HLD/CKD 3B ? Continue with blood pressure medications ? Blood pressure is stable ? Kidney function appears to be at baseline ? We will continue to monitor ? Continue with statin delete that DVT: Lovenox Charges/Coding Visit Charges OBSV E&M: 00463 Subsequent observation care L2
[2022-04-03] MEDS: Chlorthalidone 50 MG Tablet 25 MG PO (11:32)
[2022-04-03] MEDS: Enoxaparin 40 MG/0.4 ML Syringe SC (11:32)
[2022-04-03] MEDS: Atenolol 50 MG Tablet PO (11:33)
[2022-04-03] MEDS: Potassium Chloride Oral Tablet 20 MEQ 60 MEQ PO (11:38)
--- NOTE | 2022-04-03 11:52 | CASEMGMT ---
Social Work SW met w/pt, and pt's sister in room. SW spoke w/them about options at discharge. They all at this time are in agreement w/pt going somewhere for rehab short term. SW provided a list of senior care facilities to family, in pt's preferred geographic area and in network w/pt's insurance, complete with quality and resource use data. Pt and family would prefer TCU if available. SW did let them know that TCU has been full but will leave pt's name on the voicemail in case a bed opens up. SW did ask them to review the list and come up with a couple more choices in the event TCU does not have a bed, and let them know SW will follow up w/them on Tuesday. Pt and family state understanding. SW did leave a message on the TCU referral line. Plan: SNF, facility TBD [facility] Lyn
[2022-04-03] MEDS: Acetaminophen 325 MG Tablet 650 MG PO (13:48)
--- NOTE | 2022-04-03 15:19 | CASEMGMT ---
VIANCA CM in to complete CLAROS form with patient. RN IDRIS explained CLAROS form to patient, patient voiced understanding. Patient signed CLAROS form and filed in chart. Patient provided with copy of signed CLAROS form. Patient had no further questions or concerns at this time.
[2022-04-03] MEDS: Atorvastatin Calcium 10 MG Tablet 5 MG PO (21:30)
[2022-04-04 03:09] VITALS: BP 127/73; PULSE 80; RESP 18; TEMP 37; O2SAT 97
[2022-04-04] MEDS: guaiFENesin 10 ML UDC (200MG/10ML) 15 ML PO ×3 (03:11→20:46)
[2022-04-04 05:15] LABS: Absolute Lymphocyte Count 0.84 X10^3/uL (0.83-4.51); Absolute Neutrophil Count 4.8 X10^3/uL (2.0-7.7); Basophil# 0.02 X10^3/uL; Basophil% 0.3 % (0-1); Eosinophil# 0.22 X10^3/uL; Eosinophils% 3.3 % (0-5); Hematocrit 32.9 % (37-47); Hemoglobin 11.3 g/dL (12.0-15.0); Lymphocyte # 0.84 X10^3/ul (0.83-4.51); Lymphocyte % 12.8 % (19-41); Mean Corp Hgb Conc 34.3 g/dL (32-36); Mean Corpuscular Hgb 30.5 pg (27.0-32.0); Mean Corpuscular Volume 88.9 fL (81-99); Mean Platelet Vol. 9.8 fl (6.2-12.0); Monocyte# 0.73 X10^3/uL; Monocyte% 11.1 % (0-10); NRBC Flagged by Analyzer 0 % (0-5); Neutrophil # 4.75 X10^3/uL (2.7-7.7); Neutrophil % 72.2 % (47-70); Platelet Count 183 K/mm3 (150-450); RBC Distribution Width CV 13.2 % (11.6-14.6); RBC Distribution Width SD 43.1 fl (35.1-43.9); White Blood Count 6.6 K/mm3 (4.4-11.0)
[2022-04-04 05:32] LABS: Anion Gap 7 (5-15); BUN 21 mg/dL (7-18); BUN/Creat Ratio 20.2 RATIO (10-20); Chloride 100 mmol/L (98-107); Creatinine, Serum 1.04 mg/dL (0.55-1.02); EST Glomerular Filtration Rate 54 mL/min (>60); Est Glom Filt Rate - Afr Amer 66 mL/min (>60); Estimated Creatinine Clearance 41.06 ml/min; Glucose 102 mg/dL (74-106); Sodium Level 134 mmol/L (136-145)
[2022-04-04] MEDS: Benzonatate 100 MG Capsule PO ×4 (05:38→23:05)
[2022-04-04] MEDS: Potassium Chloride Oral Tablet 20 MEQ 60 MEQ PO (07:32)
[2022-04-04] MEDS: Allopurinol 300 MG Tablet PO (07:32)
--- NOTE | 2022-04-04 09:04 | PCM.PN.HOSP ---
Subjective Subjective Seems to be doing much better today than yesterday, potassium is improving though still low. Nursing staff reports that she still needs a lot of assistance adjusting herself in bed and getting out of bed into the chair Objective Data Objective Data Vital Signs: Vital Signs Temp Pulse Resp BP Pulse Ox 98.6 F 80 18 127/73 H 97 04/04/22 03:09 04/04/22 03:09 04/04/22 03:09 04/04/22 03:09 04/04/22 03:09 Oxygen Delivery Method Room Air Weight: 167 lb 15.876 oz Body Mass Index (BMI) 27.1 Intake & Output: Intake and Output for Last 24 Hours 04/03/22 04/04/22 04/05/22 03:59 03:59 03:59 Intake Total 904 / 904 Output Total 1550 / 1550 350 / 350 Balance -646 / -646 -350 / -350 Lab / Micro Data Result Diagrams: 04/04/22 05:00 04/04/22 05:00 Labs: Laboratory Results - last 24 hr 04/04/22 05:00: WBC 6.6, RBC 3.70 L, Hgb 11.3 L, Hct 32.9 L, MCV 88.9, MCH 30.5, MCHC 34.3, RDW Std Deviation 43.1, RDW Coeff of Ari 13.2, Plt Count 183, MPV 9.8, Immature Gran % (Auto) 0.300, Neut % (Auto) 72.2 H, Lymph % (Auto) 12.8 L, [place] % (Auto) 11.1 H, Eos % (Auto) 3.3, Baso % (Auto) 0.3, Absolute Neuts (auto) 4.8, Absolute Lymphs (auto) 0.84, Nucleated RBC % 0 04/04/22 05:00: Sodium 134 L, Potassium 3.0 L, Chloride 100, Carbon Dioxide 27.0, Anion Gap 7, BUN 21 H, Creatinine 1.04 H, Estim Creat Clear Calc 41.06, Est GFR (MDRD) Af Amer 66, Est GFR (MDRD) Non-Af 54 L, BUN/Creatinine Ratio 20.2 H, Glucose 102, Calcium 9.0 Micro: Microbiology 04/02/22 21:17 Nasal Secretion SARS-CoV-2 & FLU Antigen (Rapid) - Final Physical Exam Const alert, oriented x3 and no apparent distress General Appearance: cooperative HEENT normocephalic and moist oral mucous membranes Eyes PERRL, EOMs intact bilaterally and conjunctivae normal Neck supple and no JVD Resp normal respiratory effort, no retractions, no use of accessory muscles and clear to auscultation bilaterally Auscultation: Negative for crackles, rales, rhonchi or wheezes Cardio regular rate, regular rhythm, S1 normal heart sound, S2 normal heart sound and no murmurs GI soft to palpation, non-tender and non-distended; Negative for hepatosplenomegaly Extremity General Extremity: edema; Negative for clubbing or cyanosis Skin no rashes or lesions noted Neuro no focal motor deficits and no sensory deficits noted Psych affect normal Appearance: appropriate Assessment & Plan Assessment/Plan (1) Multiple falls: PLAN: 1. Debility with multiple falls secondary to viral URI ? She been having a cough and upper respiratory symptoms for the last 3 days and she is developed some weakness, COVID and flu negative ? Has had a several falls over the last several days and she says that this happens intermittently. Potassium is low and was replaced today, phosphorus was normal ? TSH was unremarkable ? PT/OT for evaluation and possible placement ? Continue with Dea Horan 2. HTN/HLD/CKD 3B ? Continue with blood pressure medications ? Blood pressure is stable ? Kidney function appears to be at baseline ? We will continue to monitor ? Continue with statin DVT: Lovenox Charges/Coding Visit Charges OBSV E&M: 34183 Subsequent observation care L2
[2022-04-04 09:10] VITALS: BP 124/54; PULSE 75; RESP 18; TEMP 36.6; O2SAT 98
[2022-04-04] MEDS: Acetaminophen 325 MG Tablet 650 MG PO ×2 (09:25→18:51)
[2022-04-04 09:29] VITALS: PULSE 75; RESP 18; O2SAT 98
[2022-04-04] MEDS: Atenolol 50 MG Tablet PO (11:00)
[2022-04-04] MEDS: Chlorthalidone 50 MG Tablet 25 MG PO (11:00)
[2022-04-04] MEDS: Enoxaparin 40 MG/0.4 ML Syringe SC (11:01)
[2022-04-04 15:10] VITALS: BP 125/68; PULSE 83; RESP 18; TEMP 36.6; O2SAT 94
[2022-04-04 15:36] VITALS: PULSE 83; RESP 18; O2SAT 94
[2022-04-04 20:37] VITALS: BP 125/87; PULSE 67; RESP 18; TEMP 36.6; O2SAT 97
[2022-04-04] MEDS: Atorvastatin Calcium 10 MG Tablet 5 MG PO (20:46)
[2022-04-05 03:30] VITALS: BP 117/63; PULSE 63; RESP 18; TEMP 36.7; O2SAT 98
[2022-04-05 04:56] LABS: Absolute Lymphocyte Count 1.04 X10^3/uL (0.83-4.51); Absolute Neutrophil Count 4.2 X10^3/uL (2.0-7.7); Basophil# 0.02 X10^3/uL; Basophil% 0.3 % (0-1); Eosinophil# 0.33 X10^3/uL; Eosinophils% 5.2 % (0-5); Hemoglobin 11.4 g/dL (12.0-15.0); Lymphocyte # 1.04 X10^3/ul (0.83-4.51); Lymphocyte % 16.5 % (19-41); Mean Corp Hgb Conc 34.5 g/dL (32-36); Mean Corpuscular Hgb 30.8 pg (27.0-32.0); Mean Corpuscular Volume 89.2 fL (81-99); Mean Platelet Vol. 9.8 fl (6.2-12.0); Monocyte# 0.67 X10^3/uL; Monocyte% 10.6 % (0-10); NRBC Flagged by Analyzer 0 % (0-5); Neutrophil # 4.24 X10^3/uL (2.7-7.7); Neutrophil % 67.1 % (47-70); Platelet Count 199 K/mm3 (150-450); RBC Distribution Width CV 13.1 % (11.6-14.6); White Blood Count 6.3 K/mm3 (4.4-11.0)
[2022-04-05 05:28] LABS: Anion Gap 7 (5-15); BUN 24 mg/dL (7-18); BUN/Creat Ratio 23.8 RATIO (10-20); Calcium,Total 8.9 mg/dL (8.5-10.1); Chloride 102 mmol/L (98-107); Creatinine, Serum 1.01 mg/dL (0.55-1.02); EST Glomerular Filtration Rate 56 mL/min (>60); Est Glom Filt Rate - Afr Amer 68 mL/min (>60); Estimated Creatinine Clearance 42.28 ml/min; Glucose 99 mg/dL (74-106); Sodium Level 136 mmol/L (136-145)
[2022-04-05] MEDS: Menthol/Lanolin/Calamine/Znox 113 GM Tube 1 APPLIC TOPICAL ×3 (05:42→20:00)
[2022-04-05] MEDS: Benzonatate 100 MG Capsule PO ×4 (05:42→21:46)
--- NOTE | 2022-04-05 07:39 | PN.HOSP_ITS ---
Subjective Subjective Patient is a 81-year-old lady admitted with multiple falls Objective Data Objective Data Vital Signs: Vital Signs Temp Pulse Resp BP Pulse Ox 98.1 F 63 18 117/63 98 04/05/22 03:30 04/05/22 03:30 04/05/22 03:30 04/05/22 03:30 04/05/22 03:30 Oxygen Delivery Method Room Air Weight: 76.2 kg Body Mass Index (BMI) 27.1 Intake & Output: Intake and Output for Last 24 Hours 04/03/22 04/04/22 04/05/22 23:59 23:59 23:59 Intake Total 904 / 904 880 / 880 Output Total 1550 / 1550 1600 / 1600 400 / 400 Balance -646 / -646 -720 / -720 -400 / -400 Lab / Micro Data Result Diagrams: 04/05/22 04:33 04/05/22 04:33 Labs: Laboratory Results - last 24 hr 04/05/22 04:33: WBC 6.3, RBC 3.70 L, Hgb 11.4 L, Hct 33.0 L, MCV 89.2, MCH 30.8, MCHC 34.5, RDW Std Deviation 43.0, RDW Coeff of Ari 13.1, Plt Count 199, MPV 9.8, Immature Gran % (Auto) 0.300, Neut % (Auto) 67.1, Lymph % (Auto) 16.5 L, [place] % (Auto) 10.6 H, Eos % (Auto) 5.2 H, Baso % (Auto) 0.3, Absolute Neuts (auto) 4.2, Absolute Lymphs (auto) 1.04, Nucleated RBC % 0 04/05/22 04:33: Sodium 136, Potassium 3.0 L, Chloride 102, Carbon Dioxide 27.0, Anion Gap 7, BUN 24 H, Creatinine 1.01, Estim Creat Clear Calc 42.28, Est GFR (MDRD) Af Amer 68, Est GFR (MDRD) Non-Af 56 L, BUN/Creatinine Ratio 23.8 H, Glucose 99, Calcium 8.9 Micro: Microbiology 04/02/22 21:17 Nasal Secretion SARS-CoV-2 & FLU Antigen (Rapid) - Final Physical Exam Narrative GENERAL: cooperative HEENT: Atraumatic; EYES; Anicteric, Normal Conjunctiva NECK; supple, normal thyroid, RESPIRATORY: Diminished to auscultation CARDIOVASCULAR: Regular S1 S2, GI: soft, normoactive bowel sounds, : No Renal angle tenderness; EXTREMITIES: No edema, no clubbing, MUSCULOSKELETAL: no muscle wasting NEURO: Awake; no lateralizing signs. SKIN: No Rash PSYCH; Flat affect Assessment & Plan Assessment/Plan (1) Multiple falls: PLAN: Patient is a 81-year-old lady admitted with multiple falls 1. Physical deconditioning - Requested for PT OT eval and social welfare research worker to assist with discharge planning 2. Recent upper respiratory viral infection ? Treated symptomatically 3. Hypertension - Blood pressure controlled, home medications continued with dose adjustment as needed 4. Gout ? Patient is on allopurinol did continue 5. Dyslipidemia -Patient is on statin therapy, continued at home dose 6. Hypertension - Blood pressure controlled, home medications continued with dose adjustment as needed 7. DVT prophylaxis ? SC [place] Charges/Coding Visit Charges OBSV E&M: 07244 Subsequent observation care L2
[2022-04-05 08:34] VITALS: BP 123/71; PULSE 64; RESP 16; TEMP 36.9; O2SAT 97
[2022-04-05] MEDS: Atenolol 50 MG Tablet PO (08:36)
[2022-04-05] MEDS: Chlorthalidone 50 MG Tablet 25 MG PO (08:36)
[2022-04-05] MEDS: Enoxaparin 40 MG/0.4 ML Syringe SC (08:36)
[2022-04-05] MEDS: Allopurinol 300 MG Tablet PO (08:36)
[2022-04-05] MEDS: Potassium Chloride Oral Tablet 20 MEQ 40 MEQ PO (10:18)
[2022-04-05] MEDS: Potassium Chloride Oral Tablet 20 MEQ PO ×2 (10:19→17:27)
--- NOTE | 2022-04-05 12:30 | CASEMGMT ---
Social Work Phone call to Shellie in TCU and referral made. TCU will have a bed tomorrow and will be able to accept pt. Insurance Precert will be started today. SW met with pt and spouse and informed that TCU can accept but authorization for insurance is needed prior to discharge. Pt and understanding. SW to continue to follow. Plan: TCU, pending precert NGUYEN Berger
[2022-04-05 15:10] VITALS: BP 121/69; PULSE 72; RESP 16; TEMP 36.7; O2SAT 100
[2022-04-05] MEDS: Acetaminophen 325 MG Tablet 650 MG PO (19:59)
[2022-04-05] MEDS: Atorvastatin Calcium 10 MG Tablet 5 MG PO (20:01)
[2022-04-05 20:05] VITALS: BP 126/66; PULSE 78; RESP 16; TEMP 37.6; O2SAT 100
[2022-04-05] MEDS: MELATONIN 3 MG TABLET PO (21:45)
[2022-04-05 21:49] VITALS: TEMP 37.1
[2022-04-06] MEDS: Menthol/Lanolin/Calamine/Znox 113 GM Tube 1 APPLIC TOPICAL ×2 (05:06→12:09)
[2022-04-06] MEDS: Benzonatate 100 MG Capsule PO ×2 (05:06→11:16)
[2022-04-06 05:14] VITALS: BP 151/82; PULSE 72; RESP 16; TEMP 36.5; O2SAT 95
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
[2022-04-06 08:24] VITALS: BP 135/66; PULSE 66; RESP 18; TEMP 36.6; O2SAT 99
[2022-04-06] MEDS: Potassium Chloride 10mEq/100mL 10 MEQ/100 ML IV.SOLN. 100 MEQ IV BOLUS ×4 (08:33→12:08)
[2022-04-06] MEDS: Allopurinol 300 MG Tablet PO (08:38)
[2022-04-06] MEDS: Potassium Chloride Oral Tablet 20 MEQ PO (08:38)
[2022-04-06] MEDS: Chlorthalidone 50 MG Tablet 25 MG PO (10:14)
[2022-04-06] MEDS: Atenolol 50 MG Tablet PO (10:14)
[2022-04-06] MEDS: Enoxaparin 40 MG/0.4 ML Syringe SC (10:14)
[2022-04-06 10:35] VITALS: O2SAT 97
--- NOTE | 2022-04-06 10:35 | PCM.TXEXTCAR ---
Diet 04/02/22 23:59 Diet: Cardiac - Heart Healthy Food consistency:: Regular Liquid Consistency:: Regular/Thin Therapies Physical Therapy: Eval and Treat Occupational Therapy: Eval and Treat Problem/Diagnosis (1) Multiple falls: Status: Acute Allergies/Procedures Done in Hospital Allergies No Known Allergies Allergy (Verified 04/02/22 20:59) Type of Care/Length of Stay Estimated LOS: Convalescent Care Less Than 30 days Type of Care Needed: Skilled Rehab Potential: Good Prognosis: Good Additional Orders/Day of Discharge Day of Discharge: 04/06/22 Discharge Plan Admission Admit Date/Time: 04/02/22 23:06 Attending Provider: Ric Mills Primary Care Provider: Michael Moore Consulting Providers: Mannie Lai ; Dusty Cummins Discharge Orders/Prescriptions Prescriptions: New potassium chloride [Klor-Con M20] 20 mEq Tablet,Er Particles/Crystals 20 meq PO BIDCM Qty: 0 RF: 0 menthol-zinc oxide [Calmoseptine] 0.44-20.6 % Ointment 1 applic topical TID Qty: 0 RF: 0 acetaminophen [Tylenol] 325 mg Tablet 650 mg PO Q6H PRN PRN (Reason: Pain Score 1-10/Temp > 100.7 F) Qty: 0 RF: 0 Continued atenolol-chlorthalidone 50-25 mg tablet 50 tab PO DAILY RF: 0 allopurinol 300 mg tablet 300 mg PO DAILY RF: 0 lovastatin 20 mg tablet 20 mg PO DAILY RF: 0 Referrals / Follow Up: Michael Moore DO [Primary Care Provider] - Within 2 Weeks Disposition Disposition (needs filled in before D/C Order can be placed): Group Home Facility
--- NOTE | 2022-04-06 10:36 | CASEMGMT ---
Social Work Precert has been obtained from insurance for admission to TCU. SW notified physician and plan is for pt to d/c today. SW met with pt and her and informed that precert has been obtained and pt can go to TCU today. Pt and spouse agreeable and all questions answered. Orders to be faxed to TCU when available and Shellie in TCU notified of d/c today. Plan: TCU, skilled level of care NGUYEN Berger
--- NOTE | 2022-04-06 10:50 | PCM.DC.SUM ---
Providers Date of Admission: 04/02/22 Primary Care Physician: Dr. Michael Moore, DO Reason For Visit: DEBILITY Diagnosis Discharge Diagnosis (1) Multiple falls: Status: Acute Code(s): R29.6 - Repeated falls Medications at Discharge Home Medications allopurinol 300 mg PO DAILY 04/02/22 atenolol-chlorthalidone 50 tab PO DAILY 04/02/22 lovastatin 20 mg PO DAILY 04/02/22 acetaminophen [Tylenol] 650 mg PO Q6H PRN PRN #0 tab 04/06/22 menthol-zinc oxide [Calmoseptine] 1 applic TOPICAL TID #0 g 04/06/22 potassium chloride [Klor-Con M20] 20 meq PO BIDCM #0 tab 04/06/22 Hospital Course Summary of Care Provided Minutes Spent on Discharge: 30 Hospital Course: Patient is a 81-year-old lady admitted with multiple falls 1. Physical deconditioning - Requested for PT OT eval and social science research assistant to assist with discharge planning 2. Recent upper respiratory viral infection ? Treated symptomatically 3. Hypertension - Blood pressure controlled, home medications continued with dose adjustment as needed 4. Gout ? Patient is on allopurinol did continue 5. Dyslipidemia -Patient is on statin therapy, continued at home dose 6. Hypertension - Blood pressure controlled, home medications continued with dose adjustment as needed 7. DVT prophylaxis ? SC Lovenox 8. Hypokalemia ? Corrected per protocol Physical Exam Narrative GENERAL: cooperative HEENT: Atraumatic; EYES; Anicteric, Normal Conjunctiva NECK; supple, normal thyroid, RESPIRATORY: Diminished to auscultation CARDIOVASCULAR: Regular S1 S2, GI: soft, normoactive bowel sounds, : No Renal angle tenderness; EXTREMITIES: No edema, no clubbing, MUSCULOSKELETAL: no muscle wasting NEURO: Awake; no lateralizing signs. SKIN: No Rash PSYCH; Flat affect Weight / BMI Weight Weight: 76.2 kg Body Mass Index (BMI) 27.1 ABG / Lab / Microbiology Data Result Diagrams: 04/05/22 04:33 04/05/22 04:33 Microbiology: Microbiology 04/02/22 21:17 Nasal Secretion SARS-CoV-2 & FLU Antigen (Rapid) - Final D/C Instructions Discharge Diet: No restrictions Discharge Activity: Return to Normal Activity Call your doctor if you observe: Fever of 101 or Higher, Shortness of breath, Fainting spells and Chest pain Meaningful Use Info Meaningful Use Diagnoses (Choose all that apply): None applicable Discharge Plan Admission Admit Date/Time: 04/02/22 23:06 Attending Provider: Ric Mills Primary Care Provider: Michael oMore Consulting Providers: Mannie Lai ; Dusty Cummins Discharge Orders/Prescriptions Prescriptions: New potassium chloride [Klor-Con M20] 20 mEq Tablet,Er Particles/Crystals 20 meq PO BIDCM Qty: 0 RF: 0 menthol-zinc oxide [Calmoseptine] 0.44-20.6 % Ointment 1 applic topical TID Qty: 0 RF: 0 acetaminophen [Tylenol] 325 mg Tablet 650 mg PO Q6H PRN PRN (Reason: Pain Score 1-10/Temp > 100.7 F) Qty: 0 RF: 0 Continued atenolol-chlorthalidone 50-25 mg tablet 50 tab PO DAILY RF: 0 allopurinol 300 mg tablet 300 mg PO DAILY RF: 0 lovastatin 20 mg tablet 20 mg PO DAILY RF: 0 Referrals / Follow Up: Michael Moore DO [Primary Care Provider] - Within 2 Weeks Disposition Disposition (needs filled in before D/C Order can be placed): [facility] Charges/Coding Visit Charges OBSV E&M: 61993 Observation care discharge
[2022-04-06 11:39] VITALS: O2SAT 97
--- NOTE | 2022-04-06 12:35 | NURSING ---
attempted to call report to TCU aware Rupali will return call.
[2022-04-06 14:35] VITALS: BP 103/58; PULSE 60; RESP 18; TEMP 36.6; O2SAT 98
--- NOTE | 2022-04-06 14:42 | NURSING ---
attempted to call report to TCU aware they will return call
--- NOTE | 2022-04-06 15:06 | NURSING ---
report called to [place] nurse from TCU. aware she will call back when room is clean for patient.
== END 2022-04-06 16:00 | disposition skilled nursing facility (03) ==
LOC: ED 23:01 → MS3 23:26
PROVIDERS: Family Medicine; Admitting Provider Hospitalist; Emergency Provider Emergency Medicine; PCP Preventive Medicine Occupational Medicine; Visit Provider Internal Medicine
DX: R53.1 Weakness (principal); F02.80 Dementia in other diseases classified elsewhere, unspecified severity, without behavioral disturbance, psychotic disturbance, mood disturbance, and anxiety; G91.9 Hydrocephalus, unspecified; N18.32 Chronic kidney disease, stage 3b; I12.9 Hypertensive chronic kidney disease with stage 1 through stage 4 chronic kidney disease, or unspecified chronic kidney disease; E87.6 Hypokalemia; J40 Bronchitis, not specified as acute or chronic; E78.5 Hyperlipidemia, unspecified; M10.9 Gout, unspecified; R53.81 Other malaise; Z79.899 Other long term (current) drug therapy
CPT/HCPCS: 36415; 70450; 71045; 80048; 81001; 83735; 84100; 84443; 84484; 85025; 87426; 87428; 93005; 96365; 96366; 96372; 97110; 97116; 97162; 97165; 97530; 97535; 99218; 99285; J7040; A4216; G0378

== ENCOUNTER 2022-04-06 16:10 | Inpatient (IN) | payer MEDICARE, SELFPAY ==
[2022-04-06 16:23] VITALS: BP 159/72; PULSE 66; RESP 18; TEMP 36.4; O2SAT 96; BMI 27.2
[2022-04-06] MEDS: Potassium Chloride Oral Tablet 20 MEQ PO (18:10)
[2022-04-06] MEDS: Acetaminophen 325 MG Tablet 650 MG PO (18:12)
--- NOTE | 2022-04-06 20:53 | HP.PCM_ITS ---
HPI - General General Date of Admission: 04/06/22 HPI Narrative 04/02/2022 TIFFANY DOMÍNGUEZ, is a 81 Female who presents to [facility] Emergency Department with weakness. EKG normal sinus rhythm, nonspecific ST&T wave abnormality. Generalized weakness, cough, URI symptoms x 3 days, fell at home. having difficulty assisting her. Coughing clear sputum. Abdominal pain from coughing. CBC okay, BUN 28, Creatinine 1.35, Troponin okay, Urinalysis okay. Chest X-ray shows chronic changes, no acute infiltrate. unable to care for her secondary to weakness. 04/02/2022 Admit to Hospital. PT/OT for weakness, falls. Azithromycin, Tessalon perles for acute bronchitis. NPH untreated. Creatinine stable. 04/03/2022 Feels better, but weak. Replace low potassium. PT/OT for [facility] facility. 04/04/2022 Doing much better. covid19 negative, flu negative. Tessalon perles for cough. 04/05/2022 PT/OT for TCU. 04/06/2022 Admit to TCU with debility, here for rehabilitation, strengthening, prior to discharge home with . [facility], [facility] Medical History Breast cancer Hydrocephalus Hyperlipidemia Hypertension Kidney disease Migraines Home Medications allopurinol 300 mg PO DAILY 04/02/22 [History Last Taken Unknown] atenolol-chlorthalidone 50 tab PO DAILY 04/02/22 [History Last Taken Unknown] lovastatin 20 mg PO DAILY 04/02/22 [History Last Taken 04/01/22] acetaminophen [Tylenol] 650 mg PO Q6H PRN PRN #0 tab 04/06/22 [Rx Last Taken Unknown] menthol-zinc oxide [Calmoseptine] 1 applic TOPICAL TID 04/06/22 [History Last Taken Unknown] potassium chloride [Klor-Con M20] 20 meq PO BIDCM 04/06/22 [History Last Taken Unknown] Allergy/AdvReac Type Severity Reaction Status Date / Time No Known Allergies Allergy Verified 04/02/22 20:59 Family History Other Alzheimer's dementia CVA (cerebral vascular accident) Diabetes Surgical History H/O left mastectomy H/O: hysterectomy S/P hysterectomy Social History (Updated 04/06/22 @ 20:[address] Valdemar Mclaughlin MD) household members: spouse Smoking Status: Never smoker alcohol intake: never substance use type: does not use ROS Constitutional Constitutional: Denies chills, fever(s) or weight gain ENT HEENT: Denies headache(s), nasal congestion or nasal discharge Cardiovascular Cardiovascular: Denies chest pain or palpitations Respiratory/Chest Respiratory/Chest: Denies cough, excessive phlegm production or shortness of breath with exertion Gastrointestinal Gastrointestinal: Denies abdominal pain, nausea or vomiting Genitourinary Genitourinary: Denies dysuria Musculoskeletal Musculoskeletal: Denies joint pain or joint swelling Integumentary Integumentary: Denies rash or wounds Neurologic Neurologic: Denies focal weakness, numbness or tingling Psychiatric Psychiatric: Denies anxiety, auditory hallucinations, depression, homicidal ideation or suicidal ideation Vital Signs Vital Signs Vital Signs: 04/06/22 16:23 Temperature 97.5 F L Temperature Source Temporal Pulse Rate 66 Pulse Rhythm Regular Pulse Strength Normal (2+) Respiratory Rate 18 Respiratory Effort Normal Non-Labored Respiratory Depth Normal Respiratory Pattern Normal Blood Pressure 159/72 H Blood Pressure Mean 101 Blood Pressure Source Monitor Blood Pressure Position Sitting Blood Pressure Location Right Arm Pulse Ox 96 Oxygen Delivery Method Room Air Weight Weight: 76.566 kg Body Mass Index (BMI) 27.2 Physical Exam Const alert General Appearance: cooperative HEENT normocephalic Eyes PERRL and EOMs intact bilaterally Neck supple, no JVD and no carotid bruits Resp normal respiratory effort, normal air movement and clear to auscultation bilaterally Cardio regular rate and regular rhythm GI normal to inspection, nondistended, normoactive bowel sounds, non-tender and non-distended Extremity normal capillary refill General Extremity: Negative for edema Skin no rashes or lesions noted General Skin Exam: no breakdown Psych affect normal Appearance: appropriate Assessment & Plan Assessment/Plan (1) Debility: (2) Generalized weakness: (3) Bronchitis: (4) Multiple falls: (5) Normal pressure hydrocephalus: (6) History of breast cancer: (7) Hypertension: (8) Hyperlipidemia: PLAN: 81 year old female with below past medical history hospitalized for weakness secondary to acute bronchitis, complicated by untreated normal pressure hydrocephalus, admitted to TCU with debility, here for rehabilitation, strengthening, prior to discharge home with . * Debility - PT/OT. * Pain - Tylenol 1000mg q6h prn pain (1-10). * Bowel - senna/colace 1 tablet bid, Dulcolax 10mg daily prn. * Adult immunization - Administer pneumonia vaccine, covid19 vaccine, flu vaccine as appropriate. * DVT prophylaxis - HAS-BLED score 1 intermediate risk of bleeding, Stephanie score 5 high risk of blood clots, overall risk intermediate, Rx Xarelto 10mg daily x 14 days. * Gout - Allopurinol 300mg daily. * Hypertension - Atenolol 50mg daily, Chlorthalidone 25mg daily. * Hypokalemia - KCL ER 20meq bidcm, monitor. * Skin irritation - Calmoseptine topical tid. * Normal Pressure Hydrocephalus - Her mental status is fluctuating, consider neurosurgical evaluation if not done for BRICK POINTER shunt.
--- NOTE | 2022-04-06 21:12 | NURSING ---
Patient's Michael called at this time for patient to talk too.
[2022-04-07 05:00] VITALS: BP 115/65; PULSE 62
[2022-04-07] MEDS: Menthol/Lanolin/Calamine/Znox 113 GM Tube 1 APPLIC TOPICAL ×3 (05:52→19:42)
[2022-04-07] MEDS: Senna/Docusate Sodium 1 Tablet PO (05:55)
[2022-04-07] MEDS: Chlorthalidone 50 MG Tablet 25 MG PO (05:55)
[2022-04-07] MEDS: Allopurinol 300 MG Tablet PO (05:55)
[2022-04-07] MEDS: Atenolol 50 MG Tablet PO (05:55)
--- NOTE | 2022-04-07 05:59 | NURSING ---
06:00 Medications were administered during downtime.
[2022-04-07 06:24] LABS: Absolute Lymphocyte Count 1.03 X10^3/uL (0.83-4.51); Absolute Neutrophil Count 3.7 X10^3/uL (2.0-7.7); Basophil# 0.02 X10^3/uL; Basophil% 0.4 % (0-1); Eosinophil# 0.26 X10^3/uL; Eosinophils% 4.6 % (0-5); Hematocrit 35.1 % (37-47); Hemoglobin 11.8 g/dL (12.0-15.0); Lymphocyte # 1.03 X10^3/ul (0.83-4.51); Lymphocyte % 18.2 % (19-41); Mean Corp Hgb Conc 33.6 g/dL (32-36); Mean Corpuscular Hgb 30.6 pg (27.0-32.0); Mean Corpuscular Volume 90.9 fL (81-99); Mean Platelet Vol. 9.9 fl (6.2-12.0); Monocyte# 0.59 X10^3/uL; Monocyte% 10.4 % (0-10); NRBC Flagged by Analyzer 0 % (0-5); Neutrophil # 3.74 X10^3/uL (2.7-7.7); Neutrophil % 65.9 % (47-70); Platelet Count 260 K/mm3 (150-450); RBC Distribution Width CV 13.2 % (11.6-14.6); RBC Distribution Width SD 42.9 fl (35.1-43.9); Red Blood Count 3.86 M/mm3 (4.2-5.4); White Blood Count 5.7 K/mm3 (4.4-11.0)
[2022-04-07 06:27] LABS: Anion Gap 6 (5-15); BUN 21 mg/dL (7-18); BUN/Creat Ratio 20.8 RATIO (10-20); Calcium,Total 9.5 mg/dL (8.5-10.1); Chloride 103 mmol/L (98-107); Creatinine, Serum 1.01 mg/dL (0.55-1.02); EST Glomerular Filtration Rate 56 mL/min (>60); Est Glom Filt Rate - Afr Amer 68 mL/min (>60); Estimated Creatinine Clearance 42.28 ml/min; Glucose 96 mg/dL (74-106); Potassium 3.6 mmol/L (3.5-5.1); Sodium Level 136 mmol/L (136-145)
[2022-04-07] MEDS: Potassium Chloride Oral Tablet 20 MEQ PO ×2 (08:02→17:53)
[2022-04-07 10:00] VITALS: O2SAT 96
[2022-04-07] MEDS: Tuberculin,Purif.prot.deriv. 50 TU/ML Vial 0.1 ML ID (10:28)
--- NOTE | 2022-04-07 15:04 | PCM.PN.DRR ---
TCU RX Drug Regimen Review Subjective: TCU admission. 81 yo female presented to ER with weakness, bronchitis and treated. Now on TCU with debility and weakness for strengthening and rehab. Objective: Allergies No Known Allergies Allergy (Verified 04/02/22 20:59) Current Medications Generic Name Dose Route Start Last Admin Trade Name Freq PRN Reason Stop Dose Admin Acetaminophen 1,000 mg 04/06/22 21:14 Acetaminophen 500 Mg Tablet PO Q6H PRN PRN Pain Score 1-10 Allopurinol 300 mg 04/07/22 06:00 04/07/22 05:55 Allopurinol 300 Mg Tablet PO 300 mg DAILY SRINIVAS Administration Atenolol 50 mg 04/07/22 06:00 04/07/22 05:55 Atenolol 50 Mg Tablet PO 50 mg DAILY SRINIVAS Administration Bisacodyl 10 mg 04/06/22 21:14 Bisacodyl 5 Mg Tablet PO DAILY PRN Constipation Calamine/Phenol 1 applic 04/06/22 22:00 04/07/22 05:52 Menthol/Lanolin/Calamine/Znox 113 Gm Tube TOPICAL 1 applic TID SRINIVAS Administration Protocol Chlorthalidone 25 mg 04/07/22 06:00 04/07/22 05:55 Chlorthalidone 50 Mg Tablet PO 25 mg DAILY SRINIVAS Administration Potassium Chloride 20 meq 04/06/22 17:00 04/07/22 08:02 Potassium Chloride Oral Tablet 20 Meq PO 20 meq BIDCM SRINIVAS Administration Rivaroxaban 10 mg 04/07/22 17:00 Rivaroxaban 10 Mg Tablet PO 04/21/22 17:01 DINNER SRINIVAS Senna/Docusate Sodium 1 tablet 04/06/22 21:15 04/07/22 05:55 Senna/Docusate Sodium 1 Tablet PO 1 tablet BID SRINIVAS Administration Sodium Chloride 10 - 40 ml 04/06/22 17:55 0.9% Saline Lock 10 Ml Syringe IV UD PRN SALINE FLUSH Tuberculin PPD 0.1 ml 04/14/22 10:00 Tuberculin,Purif.Prot.Deriv. 50 Tu/Ml Vial ID 04/14/22 10:01 X1 ONE Problem List (Last Reviewed 04/06/22 @ 20:[address] Valdemar Mclaughlin MD) Hyperlipidemia (Acute) Hypertension (Chronic) History of breast cancer (Acute) Normal pressure hydrocephalus (Acute) Debility (Acute) Bronchitis (Acute) Generalized weakness (Acute) Multiple falls (Acute) Vital Signs Temp Pulse Resp BP Pulse Ox 97.5 F L 62 18 115/65 96 04/06/22 16:23 04/07/22 05:00 04/06/22 16:23 04/07/22 05:00 04/06/22 16:23 Oxygen Delivery Method Room Air Weight: 76.566 kg Body Mass Index (BMI) 27.2 Sodium 136 mmol/L (136-145) 04/07/22 05:20 Potassium 3.6 mmol/L (3.5-5.1) 04/07/22 05:20 Chloride 103 mmol/L (98-107) 04/07/22 05:20 Carbon Dioxide 27.0 mmol/L (21.0-32.0) 04/07/22 05:20 Anion Gap 6 (5-15) 04/07/22 05:20 BUN 21 mg/dL (7-18) H 04/07/22 05:20 Creatinine 1.01 mg/dL (0.55-1.02) 04/07/22 05:20 Est GFR (MDRD) Af Amer 68 mL/min (>60) 04/07/22 05:20 Est GFR (MDRD) Non-Af 56 mL/min (>60) L 04/07/22 05:20 BUN/Creatinine Ratio 20.8 RATIO (10-20) H 04/07/22 05:20 Glucose 96 mg/dL (74-106) 04/07/22 05:20 Assessment/Plan: 1) Pain: Acetaminophen 1000mg po q6h prn pain (1-10). Has not required any usage. Please continue to monitor for need and increased usage. 2) Bowel: Bisacodyl 10mg po daily prn, Sennokot-S 1 tab po BID. Has not required any usage. Please continue to monitor for signs/symptoms of constipation/diarrhea. 3) Hypertension: Atenolol 50mg po daily, chlorthalidone 25mg po daily. Please continue to monitor BP (115/65), HR (62), potassium (3.6), signs/symptoms of dizziness. 4) Hypokalemia: KCl 20mEq po BID. Please monitor for hypo/hyperkalemia (K+ 3.6). 5) DVT prophylaxis: Rivaroxaban 10mg po daily (stop date 04.21.22). Please monitor Hg, signs/symptoms of bleeding. 6) Gout: Allopurinol 300mg po daily. Please monitor for signs/symptoms of gout. Assessment/Plan for indications treated with psychotropic medications: None Medical chart and medication regimen reviewed. The following medication irregularities or issues were identified: None Date of Note:: 04/07/22
[2022-04-07 15:20] VITALS: BP 146/86; PULSE 65; RESP 16; TEMP 36.1; O2SAT 99
[2022-04-07] MEDS: Rivaroxaban 10 MG Tablet PO (17:53)
[2022-04-08] MEDS: Senna/Docusate Sodium 1 Tablet PO ×2 (06:17→17:15)
[2022-04-08] MEDS: Allopurinol 300 MG Tablet PO (06:18)
[2022-04-08] MEDS: Chlorthalidone 50 MG Tablet 25 MG PO (06:18)
[2022-04-08] MEDS: Atenolol 50 MG Tablet PO (06:18)
[2022-04-08] MEDS: Menthol/Lanolin/Calamine/Znox 113 GM Tube 1 APPLIC TOPICAL ×3 (06:19→21:44)
[2022-04-08] MEDS: Potassium Chloride Oral Tablet 20 MEQ PO ×2 (08:29→17:15)
[2022-04-08 09:51] VITALS: RESP 16
--- NOTE | 2022-04-08 10:04 | NURSING ---
Attempted to contact patient's spouse to request he come to unit to sign paperwork. No answer for contact number, will try again later.
--- NOTE | 2022-04-08 10:09 | CASEMGMT ---
Social Work Met with patient for initial assessment. Introduced self and role. Confirmed is primary contact and sister is secondary. Discussed code status and MOLST form. Pt confirms full code. MOLST communicated to , placed in chart. Pt requesting to complete advanced directives during stay. SW to complete prior to DC as time allows. Explained [facility] with NRD 04/09 and continued stay is not guaranteed with each review. The goal is for pt to return home with at [facility]. Pt has steps to enter and to the 2nd floor. SW to continue to follow for discharge planning. Mariama Murphy, ADE VALLESW
[2022-04-08 14:45] VITALS: BP 101/69; PULSE 76; RESP 16; TEMP 36.4; O2SAT 95
--- NOTE | 2022-04-08 15:16 | NURSING ---
Family notified of covid positive employee.
[2022-04-08] MEDS: Rivaroxaban 10 MG Tablet PO (17:15)
[2022-04-09] MEDS: Menthol/Lanolin/Calamine/Znox 113 GM Tube 1 APPLIC TOPICAL ×3 (05:09→20:29)
[2022-04-09] MEDS: Chlorthalidone 50 MG Tablet 25 MG PO (05:11)
[2022-04-09] MEDS: Senna/Docusate Sodium 1 Tablet PO ×2 (05:12→17:08)
[2022-04-09] MEDS: Atenolol 50 MG Tablet PO (05:12)
[2022-04-09 05:19] VITALS: BP 121/75; PULSE 70
[2022-04-09] MEDS: Allopurinol 300 MG Tablet PO (08:04)
[2022-04-09] MEDS: Potassium Chloride Oral Tablet 20 MEQ PO ×2 (08:04→17:08)
[2022-04-09 13:43] VITALS: BP 134/67; PULSE 62; RESP 18; TEMP 36.1; O2SAT 98
[2022-04-09] MEDS: Rivaroxaban 10 MG Tablet PO (17:08)
[2022-04-09 20:24] VITALS: PULSE 72; RESP 14; O2SAT 98
[2022-04-10] MEDS: Menthol/Lanolin/Calamine/Znox 113 GM Tube 1 APPLIC TOPICAL ×3 (05:06→21:38)
[2022-04-10] MEDS: Chlorthalidone 50 MG Tablet 25 MG PO (05:07)
[2022-04-10] MEDS: Senna/Docusate Sodium 1 Tablet PO (05:07)
[2022-04-10] MEDS: Atenolol 50 MG Tablet PO (05:07)
[2022-04-10 05:16] VITALS: BP 107/47; PULSE 60
[2022-04-10] MEDS: Allopurinol 300 MG Tablet PO (07:57)
[2022-04-10] MEDS: Potassium Chloride Oral Tablet 20 MEQ PO ×2 (07:57→16:28)
[2022-04-10 15:53] VITALS: BP 120/60; PULSE 61; RESP 16; TEMP 36.4; O2SAT 98
[2022-04-10] MEDS: Rivaroxaban 10 MG Tablet PO (16:28)
[2022-04-11] MEDS: Chlorthalidone 50 MG Tablet 25 MG PO (06:33)
[2022-04-11] MEDS: Atenolol 50 MG Tablet PO (06:33)
[2022-04-11] MEDS: Menthol/Lanolin/Calamine/Znox 113 GM Tube 1 APPLIC TOPICAL ×3 (06:36→23:00)
[2022-04-11] MEDS: Potassium Chloride Oral Tablet 20 MEQ PO ×2 (09:02→16:52)
[2022-04-11] MEDS: Allopurinol 300 MG Tablet PO (09:02)
[2022-04-11 15:16] VITALS: BP 118/73; PULSE 64; RESP 16; TEMP 36.6; O2SAT 98
[2022-04-11] MEDS: Rivaroxaban 10 MG Tablet PO (16:52)
[2022-04-11 22:00] VITALS: PULSE 74; RESP 16; O2SAT 97
[2022-04-12] MEDS: Chlorthalidone 50 MG Tablet 25 MG PO (05:46)
[2022-04-12] MEDS: Atenolol 50 MG Tablet PO (05:47)
[2022-04-12] MEDS: Menthol/Lanolin/Calamine/Znox 113 GM Tube 1 APPLIC TOPICAL ×3 (05:51→19:46)
[2022-04-12] MEDS: Potassium Chloride Oral Tablet 20 MEQ PO ×2 (08:09→17:24)
[2022-04-12] MEDS: Allopurinol 300 MG Tablet PO (08:09)
[2022-04-12] MEDS: Citalopram 10 MG Tablet PO (09:00)
[2022-04-12 10:00] VITALS: PULSE 61; RESP 18; O2SAT 99
[2022-04-12 15:23] VITALS: BP 142/60; PULSE 54; RESP 16; TEMP 36.5; O2SAT 98
[2022-04-12] MEDS: Rivaroxaban 10 MG Tablet PO (17:24)
[2022-04-13] MEDS: Citalopram 10 MG Tablet PO (05:30)
[2022-04-13] MEDS: Chlorthalidone 50 MG Tablet 25 MG PO (05:30)
[2022-04-13] MEDS: Senna/Docusate Sodium 1 Tablet PO (05:30)
[2022-04-13] MEDS: Atenolol 50 MG Tablet PO (05:30)
[2022-04-13] MEDS: Menthol/Lanolin/Calamine/Znox 113 GM Tube 1 APPLIC TOPICAL ×3 (05:34→19:34)
[2022-04-13] MEDS: Allopurinol 300 MG Tablet PO (08:26)
[2022-04-13] MEDS: Potassium Chloride Oral Tablet 20 MEQ PO ×2 (08:26→17:15)
--- NOTE | 2022-04-13 11:55 | CASEMGMT ---
Social Work BIMS and PHQ-9 completed for MDS assessment. Mariama Murphy, MUSHROOM LABORER HOTEL SECURITY OFFICER
[2022-04-13 13:32] VITALS: BP 111/64; PULSE 61; RESP 16; TEMP 36.5; O2SAT 99
[2022-04-13] MEDS: Rivaroxaban 10 MG Tablet PO (17:16)
[2022-04-13 19:43] VITALS: PULSE 61; RESP 16; O2SAT 96
[2022-04-14 05:44] LABS: Absolute Lymphocyte Count 0.76 X10^3/uL (0.83-4.51); Absolute Neutrophil Count 4.3 X10^3/uL (2.0-7.7); Basophil# 0.03 X10^3/uL; Basophil% 0.5 % (0-1); Eosinophil# 0.15 X10^3/uL; Eosinophils% 2.6 % (0-5); Hematocrit 33.3 % (37-47); Hemoglobin 11.4 g/dL (12.0-15.0); Lymphocyte # 0.76 X10^3/ul (0.83-4.51); Lymphocyte % 13.2 % (19-41); Mean Corp Hgb Conc 34.2 g/dL (32-36); Mean Corpuscular Hgb 31.2 pg (27.0-32.0); Mean Corpuscular Volume 91.2 fL (81-99); Mean Platelet Vol. 9.2 fl (6.2-12.0); Monocyte# 0.49 X10^3/uL; Monocyte% 8.5 % (0-10); NRBC Flagged by Analyzer 0 % (0-5); Neutrophil # 4.28 X10^3/uL (2.7-7.7); Neutrophil % 74.7 % (47-70); Platelet Count 252 K/mm3 (150-450); RBC Distribution Width CV 13.4 % (11.6-14.6); RBC Distribution Width SD 44.9 fl (35.1-43.9); Red Blood Count 3.65 M/mm3 (4.2-5.4); White Blood Count 5.7 K/mm3 (4.4-11.0)
[2022-04-14] MEDS: Chlorthalidone 50 MG Tablet 25 MG PO (05:56)
[2022-04-14] MEDS: Citalopram 10 MG Tablet PO (05:57)
[2022-04-14] MEDS: Atenolol 50 MG Tablet PO (05:57)
[2022-04-14] MEDS: Menthol/Lanolin/Calamine/Znox 113 GM Tube 1 APPLIC TOPICAL ×3 (05:57→20:38)
[2022-04-14 06:07] LABS: Anion Gap 5 (5-15); BUN 33 mg/dL (7-18); BUN/Creat Ratio 31.4 RATIO (10-20); Calcium,Total 9.6 mg/dL (8.5-10.1); Chloride 103 mmol/L (98-107); Creatinine, Serum 1.05 mg/dL (0.55-1.02); EST Glomerular Filtration Rate 54 mL/min (>60); Est Glom Filt Rate - Afr Amer 65 mL/min (>60); Estimated Creatinine Clearance 40.67 ml/min; Glucose 98 mg/dL (74-106); Potassium 3.7 mmol/L (3.5-5.1); Sodium Level 137 mmol/L (136-145)
[2022-04-14] MEDS: Potassium Chloride Oral Tablet 20 MEQ PO ×2 (08:07→17:42)
[2022-04-14] MEDS: Allopurinol 300 MG Tablet PO (08:08)
--- NOTE | 2022-04-14 11:12 | CASEMGMT ---
Social Work IDT met with patient, , MOISÉS for care plan meeting. Discussed patient's progress in PT/OT/ST/SN. Explained [employer] insurance with NRD 04/14 and continued stay is not guaranteed. The goal is for pt to return home with . to assist. IDT recommending continued PT/ST. Discussed HHC vs OP. prefers OP at [facility]. No DME needs. requesting to practice car transfers prior to DC. OT to schedule to complete. SW to continue to follow for DC planning. Mariama Murphy, HOSTESS CASHIER CUSTOMS OPENER VERIFIER PACKER
--- NOTE | 2022-04-14 12:47 | NURSING ---
Top Collar Maker Note: Interview and MDS section F complete.
[2022-04-14] MEDS: Tuberculin,Purif.prot.deriv. 50 TU/ML Vial 0.1 ML ID (12:49)
--- NOTE | 2022-04-14 14:24 | CASEMGMT ---
Social Work Insurance issued LCD 04/17, DC 04/18. Spoke with pt and about DC date. Both agreeable. requesting [facility] only. Referral made. No DME needs. to transport. SW to complete AD prior to DC. Plan: DC home with 04/18, [facility] Mariama Murphy, ADE VALLESW
[2022-04-14 14:58] VITALS: BP 130/60; PULSE 54; RESP 16; TEMP 36.1; O2SAT 93
--- NOTE | 2022-04-14 15:13 | NURSING ---
pt and family updated on employee testing positive for Covid 19.
--- NOTE | 2022-04-14 17:36 | CASEMGMT ---
Social Work Completed living will and HCPOA. Original and copy provided to pt. Copies placed on chart. Mariama Murphy MSW INCINERATOR OPERATOR
[2022-04-14] MEDS: Rivaroxaban 10 MG Tablet PO (17:42)
[2022-04-14] MEDS: Ensure Clear 120 ML Liquid PO (17:42)
--- NOTE | 2022-04-14 20:25 | DS.PCM_ITS ---
Providers Date of Admission: 04/06/22 Primary Care Physician: Dr. Michael Moore DO Reason For Visit: DEBILITY Diagnosis Discharge Diagnosis (1) Debility: Status: Acute Code(s): R53.81 - Other malaise (2) Generalized weakness: Status: Acute Code(s): R53.1 - Weakness (3) Bronchitis: Status: Resolved Code(s): J40 - Bronchitis, not specified as acute or chronic (4) Multiple falls: Status: Resolved Code(s): R29.6 - Repeated falls (5) Normal pressure hydrocephalus: Status: Acute Code(s): G91.2 - (Idiopathic) normal pressure hydrocephalus (6) History of breast cancer: Status: Acute Code(s): Z85.3 - Personal history of malignant neoplasm of breast (7) Hypertension: Status: Chronic Code(s): I10 - Essential (primary) hypertension (8) Hyperlipidemia: Status: Acute Code(s): E78.5 - Hyperlipidemia, unspecified Plan 81 year old female with below past medical history hospitalized for weakness secondary to acute bronchitis, complicated by untreated normal pressure hydrocephalus, admitted to TCU with debility, here for rehabilitation, strengthening, prior to discharge home with . * Debility - PT/OT. * Pain - Tylenol 1000mg q6h prn pain (1-10). * Bowel - senna/colace 1 tablet bid, Dulcolax 10mg daily prn. * Adult immunization - Administer pneumonia vaccine, covid19 vaccine, flu vaccine as appropriate. * DVT prophylaxis - HAS-BLED score 1 intermediate risk of bleeding, Stephanie score 5 high risk of blood clots, overall risk intermediate, Rx Xarelto 10mg daily x 14 days. * Gout - Allopurinol 300mg daily. * Hypertension - Atenolol 50mg daily, Chlorthalidone 25mg daily. * Hypokalemia - KCL ER 20meq bidcm, monitor. * Skin irritation - Calmoseptine topical tid. * Normal Pressure Hydrocephalus - Her mental status is fluctuating, consider neurosurgical evaluation if not done for INSTITUTION LIBRARIAN shunt. Medications at Discharge Home Medications allopurinol 300 mg tablet 300 mg PO DAILY Gout 04/02/22 atenolol 50 mg-chlorthalidone 25 mg tablet 50 tab PO DAILY BP 04/02/22 lovastatin 20 mg tablet 20 mg PO DAILY Cholesterol 04/02/22 citalopram 10 mg tablet 10 mg PO DAILY 30 days #30 tabs 04/14/22 potassium chloride 20 mEq tablet,extended release(part/cryst) (Klor-Con M) 20 meq PO BIDCM 30 days #60 tabs 04/14/22 potassium chloride 20 mEq tablet,extended release(part/cryst) (Klor-Con M) 20 meq PO BIDCM Supplement 30 days #60 tabs 04/14/22 Hospital Course Operations None Procedures None Summary of Care Provided Minutes Spent on Discharge: 35 Hospital Course: ?81 year old female with below past medical history hospitalized for weakness secondary to acute bronchitis, complicated by untreated normal pressure hydrocephalus, admitted to TCU with debility, here for rehabilitation, strengthening, prior to discharge home with . Discharge home with 04/18/2022, [facility]. Consider definitive treatment of normal pressure hydrocephalus. Physical Exam Const alert General Appearance: cooperative HEENT normocephalic Eyes PERRL and EOMs intact bilaterally Neck supple, no JVD and no carotid bruits Resp normal respiratory effort, normal air movement and clear to auscultation bilaterally Cardio regular rate and regular rhythm GI normal to inspection, nondistended, normoactive bowel sounds, non-tender and non-distended Extremity normal capillary refill General Extremity: Negative for edema Skin no rashes or lesions noted General Skin Exam: no breakdown Psych affect normal Appearance: appropriate Weight / BMI Weight Weight: 77.196 kg Body Mass Index (BMI) 27.2 ABG / Lab / Microbiology Data Result Diagrams: 04/14/22 05:28 04/14/22 05:28 Laboratory: Laboratory Results - last 24 hr 04/14/22 05:28: WBC 5.7, RBC 3.65 L, Hgb 11.4 L, Hct 33.3 L, MCV 91.2, MCH 31.2, MCHC 34.2, RDW Std Deviation 44.9 H, RDW Coeff of Ari 13.4, Plt Count 252, MPV 9.2, Immature Gran % (Auto) 0.500, Neut % (Auto) 74.7 H, Lymph % (Auto) 13.2 L, Parker % (Auto) 8.5, Eos % (Auto) 2.6, Baso % (Auto) 0.5, Absolute Neuts (auto) 4.3, Absolute Lymphs (auto) 0.76 L, Nucleated RBC % 0 04/14/22 05:28: Sodium 137, Potassium 3.7, Chloride 103, Carbon Dioxide 29.0, Anion Gap 5, BUN 33 H, Creatinine 1.05 H, Estim Creat Clear Calc 40.67, Est GFR (MDRD) Af Amer 65, Est GFR (MDRD) Non-Af 54 L, BUN/Creatinine Ratio 31.4 H, Glucose 98, Calcium 9.6 Microbiology: Microbiology 04/13/22 05:25 Nasal Secretion SARS-CoV-2 Antigen (Rapid) - Final D/C Instructions Discharge Diet: No restrictions Discharge Activity: Return to Normal Activity, May Shower and Use Walker Weight Bearing Status: Weight bearing as tolerated Call your doctor if you observe: Fever of 101 or Higher, Inability to urinate, Inability to have a bowel movement, Shortness of breath, Dizziness, Fainting spells, Swelling in the ankles, Chest pain and Uncontrolled pain Additional Instructions: Discharge home with 04/18/2022, [facility]. Meaningful Use Info Meaningful Use Diagnoses (Choose all that apply): None applicable Discharge Plan Admission Admit Date/Time: 04/06/22 16:10 Primary Reason for Your Visit: Debility. Attending Provider: Valdemar Mclaughlin Chi Primary Care Provider: Michael Moore Instructions Additional Instructions / Restrictions: Discharge home with 04/18/2022, [facility]. Discharge Orders/Prescriptions Prescriptions: New citalopram 10 mg Tablet 10 mg PO DAILY 30 Days Qty: 30 0RF potassium chloride [Klor-Con M20] 20 mEq Tablet,Er Particles/Crystals 20 meq PO BIDCM 30 Days Qty: 60 0RF Continued atenolol-chlorthalidone 50-25 mg tablet 50 tab PO DAILY Label Comments: TAKE 1 TABLET BY MOUTH EVERY DAY allopurinol 300 mg tablet 300 mg PO DAILY Label Comments: TAKE 1 TABLET BY MOUTH EVERY DAY lovastatin 20 mg tablet 20 mg PO DAILY Label Comments: TAKE 1 TABLET BY MOUTH EVERY DAY potassium chloride [Klor-Con M20] 20 mEq tablet,ER particles/crystals 20 meq PO BIDCM 30 Days Qty: 60 0RF Discontinued acetaminophen [Tylenol] 325 mg Tablet 650 mg PO Q6H PRN PRN (Reason: Pain Score 1-10/Temp > 100.7 F) Qty: 0 0RF menthol-zinc oxide [Calmoseptine] 0.44-20.6 % ointment 1 applic topical TID Protocol: *Topical Application Instructions APPLICATION INSTRUCTIONS: bilat buttocks and groin Referrals / Follow Up: Michael Moore DO [Primary Care Provider] - Disposition Disposition (needs filled in before D/C Order can be placed): Home, Self Care
[2022-04-15] MEDS: Chlorthalidone 50 MG Tablet 25 MG PO (05:50)
[2022-04-15] MEDS: Senna/Docusate Sodium 1 Tablet PO (05:50)
[2022-04-15] MEDS: Menthol/Lanolin/Calamine/Znox 113 GM Tube 1 APPLIC TOPICAL ×3 (05:50→20:34)
[2022-04-15] MEDS: Citalopram 10 MG Tablet PO (05:50)
[2022-04-15] MEDS: Atenolol 50 MG Tablet PO (05:51)
[2022-04-15 05:58] VITALS: BP 105/68; PULSE 60
[2022-04-15] MEDS: Ensure Clear 120 ML Liquid PO ×3 (07:55→17:44)
[2022-04-15] MEDS: Potassium Chloride Oral Tablet 20 MEQ PO ×2 (07:55→17:47)
[2022-04-15] MEDS: Allopurinol 300 MG Tablet PO (07:55)
[2022-04-15 15:17] VITALS: BP 113/59; PULSE 63; RESP 16; TEMP 36.5; O2SAT 97
[2022-04-15] MEDS: Rivaroxaban 10 MG Tablet PO (17:48)
[2022-04-15 20:40] VITALS: O2SAT 96
[2022-04-16] MEDS: Menthol/Lanolin/Calamine/Znox 113 GM Tube 1 APPLIC TOPICAL ×3 (05:36→19:47)
[2022-04-16] MEDS: Citalopram 10 MG Tablet PO (05:37)
[2022-04-16] MEDS: Atenolol 50 MG Tablet PO (05:37)
[2022-04-16] MEDS: Senna/Docusate Sodium 1 Tablet PO (05:37)
[2022-04-16] MEDS: Chlorthalidone 50 MG Tablet 25 MG PO (05:37)
[2022-04-16] MEDS: Ensure Clear 120 ML Liquid PO ×3 (08:01→17:01)
[2022-04-16] MEDS: Potassium Chloride Oral Tablet 20 MEQ PO ×2 (08:03→17:01)
[2022-04-16] MEDS: Allopurinol 300 MG Tablet PO (08:03)
[2022-04-16 10:11] VITALS: PULSE 57; RESP 18; O2SAT 97
[2022-04-16] MEDS: Acetaminophen 500 MG Tablet 1000 MG PO (10:17)
[2022-04-16 13:38] VITALS: BP 103/57; PULSE 62; RESP 16; TEMP 36.1; O2SAT 98
--- NOTE | 2022-04-16 16:26 | CASEMGMT ---
Social Work Note BIMS and PHQ9 completed for MDS assessment. Roslyn Neville REPRODUCTIVE HEALTHCARE ASSISTANT, LABORER ROAD
[2022-04-16] MEDS: Rivaroxaban 10 MG Tablet PO (17:01)
[2022-04-17] MEDS: Citalopram 10 MG Tablet PO (06:03)
[2022-04-17] MEDS: Atenolol 50 MG Tablet PO (06:03)
[2022-04-17] MEDS: Chlorthalidone 50 MG Tablet 25 MG PO (06:03)
[2022-04-17] MEDS: Menthol/Lanolin/Calamine/Znox 113 GM Tube 1 APPLIC TOPICAL ×3 (06:07→20:14)
[2022-04-17 06:09] VITALS: BP 106/61; PULSE 62
[2022-04-17] MEDS: Potassium Chloride Oral Tablet 20 MEQ PO ×2 (09:00→16:06)
[2022-04-17] MEDS: Ensure Clear 120 ML Liquid PO ×3 (09:07→17:16)
[2022-04-17] MEDS: Allopurinol 300 MG Tablet PO (09:07)
[2022-04-17 14:09] VITALS: BP 106/57; PULSE 56; RESP 18; TEMP 36.5; O2SAT 98
[2022-04-17] MEDS: Rivaroxaban 10 MG Tablet PO (16:07)
[2022-04-17] MEDS: Acetaminophen 500 MG Tablet 1000 MG PO (23:00)
[2022-04-18] MEDS: Citalopram 10 MG Tablet PO (05:09)
[2022-04-18] MEDS: Chlorthalidone 50 MG Tablet 25 MG PO (05:09)
[2022-04-18] MEDS: Senna/Docusate Sodium 1 Tablet PO (05:10)
[2022-04-18] MEDS: Atenolol 50 MG Tablet PO (05:10)
[2022-04-18] MEDS: Menthol/Lanolin/Calamine/Znox 113 GM Tube 1 APPLIC TOPICAL (05:13)
[2022-04-18 06:44] VITALS: BP 128/72; PULSE 64; RESP 18; TEMP 36.4; O2SAT 96
[2022-04-18 06:45] VITALS: RESP 18; O2SAT 96
[2022-04-18] MEDS: Allopurinol 300 MG Tablet PO (09:08)
[2022-04-18] MEDS: Potassium Chloride Oral Tablet 20 MEQ PO (09:08)
[2022-04-18] MEDS: Ensure Clear 120 ML Liquid PO (09:11)
--- NOTE | 2022-04-19 12:01 | MDS.RN ---
Information for the mds was obtained from review of the clinical record, interview of resident, staff, and direct observation of resident's care.
== END 2022-04-18 10:20 | disposition home or self-care (01) | DRG 202 ==
PROVIDERS: Admitting Provider Family Medicine Geriatric Medicine; PCP Preventive Medicine Occupational Medicine; Visit Provider Family Medicine Geriatric Medicine
DX: J20.9 Acute bronchitis, unspecified (principal); G91.2 (Idiopathic) normal pressure hydrocephalus; E78.5 Hyperlipidemia, unspecified; I10 Essential (primary) hypertension; M10.9 Gout, unspecified; E87.6 Hypokalemia; Z79.899 Other long term (current) drug therapy; Z20.822 Contact with and (suspected) exposure to COVID-19; F32.A Depression, unspecified; Z23 Encounter for immunization
CPT/HCPCS: 0064A; 36415; 80048; 85025; 87811; 90732; 91306; 92507; 92523; 97110; 97116; 97162; 97166; 97530; 97535; 97802; G0009

== ENCOUNTER 2022-04-18 18:00 | Observation (INO) | payer MEDICARE, SELFPAY ==
[2022-04-18 18:00] VITALS: BP 110/58; PULSE 70; RESP 20; TEMP 37.2; O2SAT 98; BMI 29.6
--- NOTE | 2022-04-18 18:52 | CT_ITS ---
STUDY: CT BRAIN WITHOUT CONTRAST REASON FOR EXAM: Female, 81 years old. confusion RADIATION DOSAGE (If Supplied By Facility): CTDIvol = ( 44.99 ) mGy, DLP = ( 846.73 ) mGycm TECHNIQUE: Transaxial CT imaging of the brain was performed without administration of intravenous contrast material. Individualized dose optimization techniques were used for this CT. COMPARISON: 04/03/2022 FINDINGS: Normal soft tissue structures. Normal calvarium. There is moderate cerebral atrophy with widening of the extra-axial spaces and ventricular dilatation. There are areas of decreased attenuation within the white matter tracts of the supratentorial brain, consistent with microvascular disease changes. Normal basal ganglia and thalami. Normal brainstem. Normal cerebellum. There is no intracranial hemorrhage. There are no findings of an acute ischemic infarction. Normal visualized paranasal sinuses. CT/Brain/Head without Contrast IMPRESSION: Chronic involutional changes of the brain. Electronically Signed: Noah Weeks MD at 20:15 EDT ,
--- NOTE | 2022-04-18 18:52 | EKG12_ITS ---
Test Reason : FALL Blood Pressure : / mmHG Vent. Rate : 068 BPM Atrial Rate : 068 BPM P-R Int : 148 ms QRS Dur : 086 ms QT Int : 406 ms P-R-T Axes : 058 -09 046 degrees QTc Int : 431 ms Normal sinus rhythm Normal ECG Confirmed by RAJ PATTERSON, WINSTON ([id number]), assistant editor DONTE LAGUNA ([id number]) on 04/20/2022 8:22:05 AM Referred By: TL Confirmed By:WINSTON ANTHONY MD
--- NOTE | 2022-04-18 18:53 | EDS_ITS ---
HPI History of Present Illness Chief Complaint: Fall Informant: patient, spouse/S.O. and family Narrative Narrative: Patient brought into ED by EMS from home for increasing weakness and reported confusion. Patient discharged from TCU today at 1 PM. Patient ambulates with a walker. She was there for a week. She was hospitalized prior to that for reported bronchitis. She is currently not coughing. Per spouse had reported hydrocephalus a year ago was referred to neurosurgery afterwards, reported from spouse that neurologist was more concerns of dementia. No plan for procedure intervention. Patient is on Celexa. Patient was doing well with rehab was christoph aparicio to go home yesterday. Have reports patient has had decreased appetite in the last few days. While walking to the bathroom with a walker, patient became tired and lowered her self to the ground and laid there. Per sister states at times complains of pain in her legs that would improve with ibuprofen. Currently patient denies any pain in her legs. Denies urinary symptoms. Denies cough. Per spouse patient was not quite baseline when she was discharged earlier today. Prior similar symptoms: Yes PFSH PFSH Medical History Breast cancer Hydrocephalus Hyperlipidemia Hypertension Kidney disease Migraines Home Medications allopurinol 300 mg tablet 300 mg PO DAILY Gout 04/02/22 [History Last Taken Unknown] atenolol 50 mg-chlorthalidone 25 mg tablet 50 tab PO DAILY BP 04/02/22 [History Last Taken Unknown] lovastatin 20 mg tablet 20 mg PO DAILY Cholesterol 04/02/22 [History Last Taken 04/01/22] citalopram 10 mg tablet 10 mg PO DAILY 30 days #30 tabs 04/14/22 [Rx Last Taken Unknown] potassium chloride 20 mEq tablet,extended release(part/cryst) (Klor-Con M) 20 meq PO BIDCM 30 days #60 tabs 04/14/22 [Rx Last Taken Unknown] Allergy/AdvReac Type Severity Reaction Status Date / Time No Known Allergies Allergy Verified 04/02/22 20:59 Family History Other Alzheimer's dementia CVA (cerebral vascular accident) Diabetes Surgical History H/O left mastectomy H/O: hysterectomy S/P hysterectomy Social History household members: spouse Smoking Status: Never smoker alcohol intake: never substance use type: does not use ROS ROS ED Constitutional Constitutional ED: Denies chills, fever(s) or sweats Eyes Eyes: Denies change in vision ENT ENT ED: Denies dysphagia or sore throat Cardiovascular Cardiovascular: Denies chest pain, leg edema, palpitations or racing heartbeat Respiratory/Chest Respiratory/Chest: Denies cough, dyspnea or dyspnea on exertion Gastrointestinal Gastrointestinal: Denies abdominal pain, diarrhea, nausea or vomiting Genitourinary Genitourinary ED: Denies dysuria, hematuria or urinary frequency Musculoskeletal Musculoskeletal: Denies back pain, extremity pain or neck pain Integumentary Denies rash or wounds Neurologic Neurologic: Denies headache(s), paresthesias or weakness EXAM Physical Exam Const Vital Signs: 04/18/22 18:00 04/18/22 18:00 04/18/22 20:00 Temperature 99 F Temperature Source Temporal Pulse Rate 70 71 Respiratory Rate 20 H 21 H Blood Pressure 110/58 L 107/56 L Blood Pressure Mean 75 73 Pulse Ox 98 95 Oxygen Delivery Method Room Air Room Air 04/18/22 20:55 Temperature 98.9 F Temperature Source Temporal Pulse Rate 78 Respiratory Rate 22 H Blood Pressure 109/55 L Blood Pressure Mean 73 Pulse Ox 91 Oxygen Delivery Method Room Air Positive well nourished and well developed General Appearance ED: well developed and NAD HEENT HEENT Narrative: Mild dry mucosal membranes. normocephalic and atraumatic Eyes PERRL, EOMs intact bilaterally and conjunctivae normal General Eye ED: Yes normal appearance of both eyes Neck no lymphadenopathy and supple General: Negative for tenderness Chest Wall Chest: Negative for tenderness Resp normal respiratory effort and normal air movement Effort and Inspection: symmetric chest movement; Negative for respiratory distress Cardio regular rate, regular rhythm and no murmurs Peripheral Pulses: pulses 2+ throughout GI normal to inspection, nondistended, normoactive bowel sounds and non-tender Palpation: Negative for guarding or rebound tenderness present Back/Spine no CVA tenderness and no thoracic nor lumbar tenderness Extremity normal to inspection General Extremety ED: Negative for edema or tenderness General Extremity: Negative for edema Neuro no sensory deficits noted Neuro Narrative: Alert to person reported place was rehab and the year was 1919. Sensorium / Orientation: awake and alert Skin no rashes or lesions noted and no wounds MDM MDM MDM Narrative Medical decision making narrative: Patient has no real complaints. Vitals are stable temp was 99. EKG was sinus rhythm. Labs are all stable from her previous labs urine noted signs of infection with nitrites leukocytes and WBCs along with 4+ bacteria. Urine culture sent. Attempted to ambulate with a walker per nursing significant weakness. She is covered IV Rocephin. I discussed with hospitalist Dr. Gomez for admission secondary to weakness. Lab Data Attestation: I reviewed the patient's lab results. Labs: Laboratory Results - last 24 hr 04/18/22 04/18/22 04/18/22 19:11 19:11 19:42 WBC 10.8 RBC 3.71 L Hgb 11.5 L Hct 32.9 L MCV 88.7 MCH 31.0 MCHC 35.0 RDW Std Deviation 43.8 RDW Coeff of Ari 13.4 Plt Count 251 MPV 9.6 Immature Gran % (Auto) 0.500 Neut % (Auto) 85.0 H Lymph % (Auto) 6.4 L Placer % (Auto) 7.7 Eos % (Auto) 0.2 Baso % (Auto) 0.2 Absolute Neuts (auto) 9.2 H Absolute Lymphs (auto) 0.69 L Nucleated RBC % 0 Sodium 134 L Potassium 3.4 L Chloride 101 Carbon Dioxide 23.0 Anion Gap 10 BUN 28 H Creatinine 1.16 H Estim Creat Clear Calc 33.96 Est GFR (MDRD) Af Amer 58 L Est GFR (MDRD) Non-Af 48 L BUN/Creatinine Ratio 24.1 H Glucose 135 H Calcium 9.3 Total Bilirubin 0.70 AST 27 ALT 27 Alkaline Phosphatase 85 Total Protein 6.6 Albumin 3.1 L Globulin 3.5 Albumin/Globulin Ratio 0.9 Urine Color Yellow Urine Clarity Sl. Cloudy Urine pH 5.0 Ur Specific [place] 1.015 Urine Protein 30 H Urine Glucose (UA) Normal Urine Ketones Negative Urine Occult Blood 50 H Urine Nitrite Positive H Urine Bilirubin Negative Urine Urobilinogen Normal Ur Leukocyte Esterase 500 H Urine RBC 5-10 SEEN Urine WBC 50-100 SEEN Ur Squamous Epith Cells 0-5 SEEN Urine Bacteria 4+ Urine Mucus 0 SEEN Radiography Diagnostic Testing: Clinical Impression(s) from Imaging Studies Brain CT 04/18/22 18:52 IMPRESSION: Chronic involutional changes of the brain. Electronically Signed: Noah eWeks MD at 20:15 EDT , EKG Initial EKG: Attestation: I personally reviewed and interpreted this EKG as follows: Comments: Sinus rate of 68, no ST or T wave changes. Discharge Plan Dx/Rx/DC Orders Clinical Impression: Generalized weakness, Debility, Acute UTI, Dementia Disposition Disposition: Acute Care Hospital [facility] Discharge Date/Time: 04/18/22 21:27
[2022-04-18 19:34] LABS: Absolute Lymphocyte Count 0.69 X10^3/uL (0.83-4.51); Absolute Neutrophil Count 9.2 X10^3/uL (2.0-7.7); Basophil# 0.02 X10^3/uL; Basophil% 0.2 % (0-1); Eosinophil# 0.02 X10^3/uL; Eosinophils% 0.2 % (0-5); Hematocrit 32.9 % (37-47); Hemoglobin 11.5 g/dL (12.0-15.0); Lymphocyte # 0.69 X10^3/ul (0.83-4.51); Lymphocyte % 6.4 % (19-41); Mean Corpuscular Volume 88.7 fL (81-99); Mean Platelet Vol. 9.6 fl (6.2-12.0); Monocyte# 0.83 X10^3/uL; Monocyte% 7.7 % (0-10); NRBC Flagged by Analyzer 0 % (0-5); Neutrophil # 9.22 X10^3/uL (2.7-7.7); Platelet Count 251 K/mm3 (150-450); RBC Distribution Width CV 13.4 % (11.6-14.6); RBC Distribution Width SD 43.8 fl (35.1-43.9); Red Blood Count 3.71 M/mm3 (4.2-5.4); White Blood Count 10.8 K/mm3 (4.4-11.0)
[2022-04-18 19:51] LABS: Mucous, Urine 0 SEEN /hpf (<or=2+)
[2022-04-18 19:52] LABS: ALB/GLOB Ratio 0.9 RATIO (0.9-2.4); AST(SGOT) 27 U/L (15-37); Alanine Aminotransfer ALT/SGPT 27 U/L (13-56); Albumin, Serum 3.1 g/dL (3.2-5.0); Alkaline Phosphatase 85 U/L (45-117); Anion Gap 10 (5-15); BUN 28 mg/dL (7-18); BUN/Creat Ratio 24.1 RATIO (10-20); Calcium,Total 9.3 mg/dL (8.5-10.1); Chloride 101 mmol/L (98-107); Creatinine, Serum 1.16 mg/dL (0.55-1.02); EST Glomerular Filtration Rate 48 mL/min (>60); Est Glom Filt Rate - Afr Amer 58 mL/min (>60); Estimated Creatinine Clearance 33.96 ml/min; Globulin 3.5 g/dL (2.2-4.2); Glucose 135 mg/dL (74-106); Potassium 3.4 mmol/L (3.5-5.1); Protein, Total 6.6 g/dL (6.4-8.2); Sodium Level 134 mmol/L (136-145)
[2022-04-18 19:57] LABS: Color, Urine Yellow (Yellow); Glucose, Dipstick Normal (Normal); Ketone-Dipstick Negative (Negative); Leukocyte Esterase-Dipstick 500 /ul (Negative); Nitrite-Dipstick Positive (Negative); Occult Blood-Urine 50 /ul (Negative); Protein-Dipstick 30 mg/dl (Negative); Specific Gravity, Urine 1.015 (1.002-1.030); Urine Bilirubin Dipstick Negative (Negative); Urine Clarity Sl. Cloudy (Clear); Urine Urobilinogen Normal (Normal)
[2022-04-18 20:00] VITALS: BP 107/56; PULSE 71; RESP 21; O2SAT 95
[2022-04-18 20:05] LABS: Bacteria 4+ /hpf (None Seen); White Blood Cells 50-100 SEEN /hpf (0-5)
[2022-04-18 20:06] LABS: Red Blood Cells-Urine 5-10 SEEN /hpf (0-5); Squamous Epithelial Cells - UA 0-5 SEEN /hpf (5-10)
[2022-04-18] MEDS: Ceftriaxone 1 GM/50 ML BAG IV (20:52)
[2022-04-18 20:55] VITALS: BP 109/55; PULSE 78; RESP 22; TEMP 37.2; O2SAT 91
--- NOTE | 2022-04-18 21:26 | PCM.HP.STD ---
HPI - General General Date of Admission: 04/18/22 Date of Service: 04/18/22 Chief Complaint: weakness. HPI Narrative TIFFANY DOMÍNGUEZ, is a 81 F who presents with weakness. Patient was just discharged from the transitional care unit today and was at home and just felt weak. Patient was lowered to the ground. This was similar to her presentation when she was in the hospital on the and had an upper respiratory infection. Patient has a history of dementia and sees Dr. Mora for this. Previously, years prior, patient saw a neurologist at [place] [facility] but did not know what that neurologist felt. Patient did have an MRI of her brain that showed marked atrophy at that time. CAT scan here shows no acute process but again shows the profound atrophy and large ventricles. Patient was not felt to have normal pressure hydrocephalus by the neurologist and felt that she had dementia. History is obtained through the patient's at bedside as patient is pleasant but confused. [facility] Medical History Breast cancer Hydrocephalus Hyperlipidemia Hypertension Kidney disease Migraines Home Medications allopurinol 300 mg tablet 300 mg PO DAILY Gout 04/02/22 [History Last Taken Unknown] atenolol 50 mg-chlorthalidone 25 mg tablet 50 tab PO DAILY BP 04/02/22 [History Last Taken Unknown] lovastatin 20 mg tablet 20 mg PO DAILY Cholesterol 04/02/22 [History Last Taken 04/01/22] citalopram 10 mg tablet 10 mg PO DAILY 30 days #30 tabs 04/14/22 [Rx Last Taken Unknown] potassium chloride 20 mEq tablet,extended release(part/cryst) (Klor-Con M) 20 meq PO BIDCM 30 days #60 tabs 04/14/22 [Rx Last Taken Unknown] Allergy/AdvReac Type Severity Reaction Status Date / Time No Known Allergies Allergy Verified 04/02/22 20:59 Family History Other Alzheimer's dementia CVA (cerebral vascular accident) Diabetes Surgical History H/O left mastectomy H/O: hysterectomy S/P hysterectomy Social History household members: spouse Smoking Status: Never smoker alcohol intake: never substance use type: does not use ROS Review of Systems ROS Unobtainable: due to mental status Vital Signs Vital Signs Vital Signs: 04/18/22 18:00 04/18/22 18:00 04/18/22 20:00 Temperature 37.2 C Temperature Source Temporal Pulse Rate 70 71 Respiratory Rate 20 H 21 H Blood Pressure 110/58 L 107/56 L Blood Pressure Mean 75 73 Pulse Ox 98 95 Oxygen Delivery Method Room Air Room Air 04/18/22 20:55 Temperature 37.2 C Temperature Source Temporal Pulse Rate 78 Respiratory Rate 22 H Blood Pressure 109/55 L Blood Pressure Mean 73 Pulse Ox 91 Oxygen Delivery Method Room Air Weight Weight: 78.3 kg Body Mass Index (BMI) 29.6 Physical Exam Const alert and no apparent distress Constitutional Narrative: Agitated but redirectable. HEENT normocephalic, head/scalp atraumatic and moist oral mucous membranes Eyes PERRL and EOMs intact bilaterally Neck no lymphadenopathy Resp normal respiratory effort, no retractions, no use of accessory muscles and clear to auscultation bilaterally Cardio regular rate, regular rhythm, S1 normal heart sound and S2 normal heart sound GI normal to inspection, nondistended, normoactive bowel sounds, soft to palpation and non-tender Extremity Extremity Narrative: Trace lower extremity edema Neuro moves all extremities and no focal motor deficits Results Lab / Micro Data Attestation: I reviewed the patient's lab results. Result Diagrams: 04/18/22 19:11 04/18/22 19:11 Labs: Laboratory Results - last 24 hr 04/18/22 19:11: WBC 10.8, RBC 3.71 L, Hgb 11.5 L, Hct 32.9 L, MCV 88.7, MCH 31.0, MCHC 35.0, RDW Std Deviation 43.8, RDW Coeff of Ari 13.4, Plt Count 251, MPV 9.6, Immature Gran % (Auto) 0.500, Neut % (Auto) 85.0 H, Lymph % (Auto) 6.4 L, [place] % (Auto) 7.7, Eos % (Auto) 0.2, Baso % (Auto) 0.2, Absolute Neuts (auto) 9.2 H, Absolute Lymphs (auto) 0.69 L, Nucleated RBC % 0 06/26/22 19:11: Sodium 134 L, Potassium 3.4 L, Chloride 101, Carbon Dioxide 23.0, Anion Gap 10, BUN 28 H, Creatinine 1.16 H, Estim Creat Clear Calc 33.96, Est GFR (MDRD) Af Amer 58 L, Est GFR (MDRD) Non-Af 48 L, BUN/Creatinine Ratio 24.1 H, Glucose 135 H, Calcium 9.3, Total Bilirubin 0.70, AST 27, ALT 27, Alkaline Phosphatase 85, Total Protein 6.6, Albumin 3.1 L, Globulin 3.5, Albumin/Globulin Ratio 0.9 04/18/22 19:42: Urine Color Yellow, Urine Clarity Sl. Cloudy, Urine pH 5.0, Ur Specific [place] 1.015, Urine Protein 30 H, Urine Glucose (UA) Normal, Urine Ketones Negative, Urine Occult Blood 50 H, Urine Nitrite Positive H, Urine Bilirubin Negative, Urine Urobilinogen Normal, Ur Leukocyte Esterase 500 H, Urine RBC 5-10 SEEN, Urine WBC 50-100 SEEN, Ur Squamous Epith Cells 0-5 SEEN, Urine Bacteria 4+, Urine Mucus 0 SEEN EKG Initial EKG: Attestation: I personally reviewed and interpreted this EKG as follows: Prior EKG tracings: available for review EKG Rhythm Intrepretation: Sinus Rhythm Radiology Impression Brain CT 04/18/22 18:52 IMPRESSION: Chronic involutional changes of the brain. Electronically Signed: Noah Weeks MD at 20:15 EDT , Assessment & Plan Assessment/Plan (1) Acute UTI: (2) Debility: PLAN: Plan 1. UTI Patient otherwise stable. Patient did receive ceftriaxone in the emergency room. Plan: Follow-up urine culture. Continue with ceftriaxone. Patient could be transitioned over to oral regiment if her discharged to a facility has been approved before the culture results are back 2. Debility Patient was just discharged from the transitional care unit today. Discussed with patient's as well as another individual that patient does has very poor performance status overall and little things, such as a mild urinary tract infection could to priority #cardiology week. Complicating this is patient's underlying dementia. Plan: PT OT evaluate and treat. Case management to assist with disposition. I made them aware that is possible the patient may not be able to return to the transitional care unit. The case management team will contact them to work on a plan. 3. Dementia I reviewed the patient's MRIs from 2017 and her current CAT scan from today. Showed very large ventricles which more or less look the same. MRI report from 2017 noted marked atrophy. Patient is seeing a neurologist, Dr. Mora. Not felt, by neurology, to be normal pressure hydrocephalus. Plan: Follow-up with neurology as outpatient. 4. VTE prophylaxis with enoxaparin. 5. Advanced care planning: Spent 60 minutes discussing with the patient's as well as other individual about aggressiveness of care. Told him that we can do CPR in the event if she has cardiopulmonary arrest but if she were to survive that she would be more impaired than she already is. I recommended no CPR. He agreed. Therefore, patient be DNR Comfort Care arrest. Charges/Coding Visit Charges OBSV E&M: 39238 Initial observation care L2
[2022-04-18 21:44] VITALS: BP 123/61; PULSE 77; RESP 20; TEMP 37.9; O2SAT 96
[2022-04-18] MEDS: 0.9% Saline Lock 10 ML Syringe IV (21:57)
--- NOTE | 2022-04-18 21:58 | NURSING ---
Pt A & O x 1. Unable to obtain history or medlist from pt.
[2022-04-18 21:59] VITALS: BMI 28.8
[2022-04-18] MEDS: Acetaminophen 325 MG Tablet 650 MG PO (23:32)
[2022-04-18] MEDS: Atorvastatin Calcium 10 MG Tablet 5 MG PO (23:32)
[2022-04-18 23:41] VITALS: TEMP 37
[2022-04-19 03:34] VITALS: BP 100/52; PULSE 60; RESP 18; TEMP 36.5; O2SAT 96
[2022-04-19 06:23] LABS: Anion Gap 8 (5-15); BUN 26 mg/dL (7-18); BUN/Creat Ratio 21.7 RATIO (10-20); Calcium,Total 9.1 mg/dL (8.5-10.1); Chloride 102 mmol/L (98-107); EST Glomerular Filtration Rate 46 mL/min (>60); Est Glom Filt Rate - Afr Amer 56 mL/min (>60); Estimated Creatinine Clearance 32.83 ml/min; Glucose 121 mg/dL (74-106); Magnesium 1.9 mg/dL (1.6-2.6); Potassium 3.2 mmol/L (3.5-5.1); Sodium Level 137 mmol/L (136-145)
[2022-04-19 07:33] VITALS: BP 126/86; PULSE 63; RESP 18; TEMP 37.1; O2SAT 96
[2022-04-19] MEDS: Allopurinol 300 MG Tablet PO (07:46)
[2022-04-19] MEDS: Potassium Chloride Oral Tablet 20 MEQ PO ×2 (07:47→17:30)
[2022-04-19] MEDS: Potassium Chloride Oral Tablet 20 MEQ 40 MEQ PO (07:47)
--- NOTE | 2022-04-19 10:24 | PCM.PN.HOSP ---
Subjective Subjective Patient presented to the emergency department last evening with weakness. She was just discharged from the transitional care unit on the day of presentation as her insurance would no longer approve days and she just felt weak at home. She was lowered to the ground and had no resultant injuries. She has baseline dementia and had been living with her previously in a two-story house. She states she ambulates with a walker at baseline. Patient states she feels a little bit better today but has not been out of bed yet. Objective Data Objective Data Vital Signs: Vital Signs Temp Pulse Resp BP Pulse Ox 98.8 F 63 18 126/86 H 96 04/19/22 07:33 04/19/22 07:33 04/19/22 07:33 04/19/22 07:33 04/19/22 07:33 Oxygen Delivery Method Room Air Weight: 76.1 kg Body Mass Index (BMI) 28.8 Intake & Output: Intake and Output for Last 24 Hours 04/17/22 04/18/22 04/19/22 23:59 23:59 23:59 Intake Total 550 / 550 Balance 550 / 550 Lab / Micro Data Result Diagrams: 04/18/22 19:11 04/19/22 05:35 Labs: Laboratory Results - last 24 hr 04/18/22 19:11: WBC 10.8, RBC 3.71 L, Hgb 11.5 L, Hct 32.9 L, MCV 88.7, MCH 31.0, MCHC 35.0, RDW Std Deviation 43.8, RDW Coeff of Ari 13.4, Plt Count 251, MPV 9.6, Immature Gran % (Auto) 0.500, Neut % (Auto) 85.0 H, Lymph % (Auto) 6.4 L, [place] % (Auto) 7.7, Eos % (Auto) 0.2, Baso % (Auto) 0.2, Absolute Neuts (auto) 9.2 H, Absolute Lymphs (auto) 0.69 L, Nucleated RBC % 0 04/18/22 19:11: Sodium 134 L, Potassium 3.4 L, Chloride 101, Carbon Dioxide 23.0, Anion Gap 10, BUN 28 H, Creatinine 1.16 H, Estim Creat Clear Calc 33.96, Est GFR (MDRD) Af Amer 58 L, Est GFR (MDRD) Non-Af 48 L, BUN/Creatinine Ratio 24.1 H, Glucose 135 H, Calcium 9.3, Total Bilirubin 0.70, AST 27, ALT 27, Alkaline Phosphatase 85, Total Protein 6.6, Albumin 3.1 L, Globulin 3.5, Albumin/Globulin Ratio 0.9 04/18/22 19:42: Urine Color Yellow, Urine Clarity Sl. Cloudy, Urine pH 5.0, Ur Specific [place] 1.015, Urine Protein 30 H, Urine Glucose (UA) Normal, Urine Ketones Negative, Urine Occult Blood 50 H, Urine Nitrite Positive H, Urine Bilirubin Negative, Urine Urobilinogen Normal, Ur Leukocyte Esterase 500 H, Urine RBC 5-10 SEEN, Urine WBC 50-100 SEEN, Ur Squamous Epith Cells 0-5 SEEN, Urine Bacteria 4+, Urine Mucus 0 SEEN 04/19/22 05:35: Sodium 137, Potassium 3.2 L, Chloride 102, Carbon Dioxide 27.0, Anion Gap 8, BUN 26 H, Creatinine 1.20 H, Estim Creat Clear Calc 32.83, Est GFR (MDRD) Af Amer 56 L, Est GFR (MDRD) Non-Af 46 L, BUN/Creatinine Ratio 21.7 H, Glucose 121 H, Calcium 9.1, Magnesium 1.9 Radiography Diagnostic Testing: Radiology Impression Brain CT 04/18/22 18:52 IMPRESSION: Chronic involutional changes of the brain. Electronically Signed: Noah Weeks MD at 20:15 EDT Reading Location ID and State: [address] [place] [address] Tel , Service support , Physical Exam Const alert, oriented x3, no apparent distress, average body habitus and well nourished Constitutional Narrative: Overweight older white female sitting up in bed, appears comfortable nontoxic HEENT head/scalp atraumatic and moist oral mucous membranes HEENT Narrative: Dentition is poor, Mallampati is 2, no thrush Resp normal respiratory effort, no retractions, no use of accessory muscles and clear to auscultation bilaterally Auscultation: Negative for crackles, rales, rhonchi or wheezes Cardio regular rate, regular rhythm, S1 normal heart sound, S2 normal heart sound, no murmurs, no rub, no gallops, no clicks and no JVD GI normal to inspection, nondistended, normoactive bowel sounds, soft to palpation, non-tender and non-distended; Negative for hepatosplenomegaly Extremity no clubbing, cyanosis or edema Neuro oriented x3, CN's II-XII intact bilaterally, moves all extremities and no focal motor deficits Neuro Narrative: Significant generalized weakness proximal greater than distal Sensorium / Orientation: awake, alert, oriented to person, oriented to place and oriented to time Speech: speech normal Psych affect normal Assessment & Plan Assessment/Plan (1) Acute UTI: (2) Debility: (3) Generalized weakness: (4) Declining functional status: (5) Hypokalemia: PLAN: Plan Acute urinary tract infection -UA very suggestive of infection -Cultures pending -Continue ceftriaxone Debility/generalized weakness -Appears that this has been an ongoing issue -Was just discharged from the transitional care unit on 04/18/2022 as her insurance would no longer approve any days -Patient's baseline functional status is poor -PT/OT consultation -Case management is following and I discussed the case with him and they will discuss options with the patient and the -Typically lives in a two-story house with her and uses a wheeled walker to ambulate Hypokalemia -Acute on chronic -Patient is on 20 mEq p.o. twice daily at baseline -We will give an extra 40 mill equivalents today -Recheck BMP in a.m. Dementia -Patient follows with Dr. Mora -Patient is on a baseline medication for this -Previous CT showed very large ventricles but they did not feel she had normal pressure hydrocephalus -Follow-up with outpatient neurology as previously directed Gout -Continue home allopurinol CKD stage IIIb -Baseline creatinine appears to be between 1 and 1.2 -Remains at baseline -Continue to monitor Hypertension -Continue atenolol -Continue chlorthalidone Hyperlipidemia -Continue statin Depression -Continue citalopram DVT prophylaxis -Continue enoxaparin CODE STATUS -DNR CCA okay for short-term intubation Charges/Coding Visit Charges Inpatient E&M: 94750 Subs Hosp L2
[2022-04-19] MEDS: Citalopram 10 MG Tablet PO (10:39)
[2022-04-19] MEDS: Chlorthalidone 50 MG Tablet 25 MG PO (10:39)
[2022-04-19] MEDS: Enoxaparin 40 MG/0.4 ML Syringe SC (10:40)
[2022-04-19] MEDS: Atenolol 50 MG Tablet PO (10:40)
[2022-04-19] MEDS: Ensure Clear 120 ML Liquid PO ×3 (14:32→22:13)
--- NOTE | 2022-04-19 15:28 | CASEMGMT ---
Addendum entered by Monik Yanez 04/19/22 15:42: SW provided pt and spouse with list of AL and SNF providers including quality and resource use data nad consistent with the patient's preferred geographic region, medical needs and insurance network. NGUYEN Berger Original Note: Social Work SW met with pt and spouse. Pt known to this SW from previous visit. SW spoke with pt and spouse regarding discharge plan. Pt and spouse feel pt can likely not return home as her condition is worsening and pt does not feel he can care for her at home safely. SW spoke to pt and spouse extensively about superintendent terminal ECF vs Assisted Living. Pt son is coming in from out of state later today and will assist pt in making decisions. SNF choices are limited due to in network facilities with insurance. After much discussion, pt and prefer pt go to TCU for short term rehab. This will allow pt time to get stronger and maximize rehab potential and family to investigate superintendent terminal plans including ECF and assisted living. Referral made to TCU and they are able to accept pt. Precert to be started. Plan: TCU, pending precert NGUYEN Berger
[2022-04-19 15:40] VITALS: BP 115/59; PULSE 62; RESP 18; TEMP 36.8; O2SAT 96
--- NOTE | 2022-04-19 15:50 | CASEMGMT ---
VIANCA STEINBERG in to discuss CLAROS form with patient. RN IDRIS explained CLAROS form, patient voiced understanding. Pt signed form and filed in chart. Pt provided with a copy of signed CLAROS form. Patient with family members in room and daughter in law on speaker phone. Patient had no further questions or concerns at this time.
[2022-04-19 22:00] VITALS: BP 115/60; PULSE 59; RESP 16; TEMP 37.1; O2SAT 97
[2022-04-19] MEDS: Atorvastatin Calcium 10 MG Tablet 5 MG PO (22:12)
[2022-04-19] MEDS: Ceftriaxone 1 GM/50 ML BAG IV (22:13)
[2022-04-19] MEDS: 0.9% Saline Lock 10 ML Syringe IV (22:20)
[2022-04-20] MEDS: Acetaminophen 325 MG Tablet 650 MG PO (04:27)
[2022-04-20 06:36] LABS: Anion Gap 7 (5-15); BUN 25 mg/dL (7-18); BUN/Creat Ratio 24.5 RATIO (10-20); Calcium,Total 8.9 mg/dL (8.5-10.1); Chloride 102 mmol/L (98-107); Creatinine, Serum 1.02 mg/dL (0.55-1.02); EST Glomerular Filtration Rate 55 mL/min (>60); Est Glom Filt Rate - Afr Amer 67 mL/min (>60); Estimated Creatinine Clearance 38.62 ml/min; Glucose 97 mg/dL (74-106); Magnesium 1.7 mg/dL (1.6-2.6); Phosphorus 2.9 mg/dL (2.5-4.9); Potassium 3.4 mmol/L (3.5-5.1); Sodium Level 135 mmol/L (136-145)
[2022-04-20] MEDS: Allopurinol 300 MG Tablet PO (08:47)
[2022-04-20] MEDS: Potassium Chloride Oral Tablet 20 MEQ PO (08:50)
[2022-04-20] MEDS: Potassium Chloride Oral Tablet 20 MEQ 40 MEQ PO (08:51)
[2022-04-20 08:53] VITALS: BP 120/56; PULSE 57; RESP 16; TEMP 36.2; O2SAT 98
[2022-04-20] MEDS: Ensure Clear 120 ML Liquid PO (10:06)
[2022-04-20] MEDS: Enoxaparin 40 MG/0.4 ML Syringe SC (10:06)
[2022-04-20] MEDS: Citalopram 10 MG Tablet PO (10:07)
--- NOTE | 2022-04-20 11:04 | CASEMGMT ---
Addendum entered by Monik Yanez 04/20/22 13:13: Social Work Per physician, pt is ready for discharge today. Orders faxed to TCU and Shellie in TCU notified of d/c. Pt made aware as well as nursing that pt can transfer to TCU at this time. Plan: TCU, skilled level of care NGUYEN Berger Original Note: Social Work Notified from Shellie in TCU that preauth has been obtained and pt can admit to TCU today. SW notified pt and her spouse who are agreeable to discharge plan. Physician updated. NGUYEN Berger
--- NOTE | 2022-04-20 11:06 | PCM.TXEXTCAR ---
Diet Diet Order/Speech Therapy: 04/18/22 21:42 Diet: Regular - General Food consistency:: Regular Liquid Consistency:: Regular/Thin Routine Orders/Code Status Routine Lab Work: BMP (04/23/2022) Code Status: DNRCC-A (Okay for intubation) Wound(s) L great toe: Wound Type: Neuropathic/Diabetic Foot Ulcer Suggestions for Active Care Change Position every (hours): 2 Therapies Weight Bearing: Full weight bearing Physical Therapy: Eval and Treat Occupational Therapy: Eval and Treat Problem/Diagnosis (1) Acute UTI: Status: Acute Code(s): N39.0 - Urinary tract infection, site not specified (2) Debility: Status: Acute Code(s): R53.81 - Other malaise (3) Generalized weakness: Status: Acute Code(s): R53.1 - Weakness (4) Declining functional status: Status: Acute Code(s): R53.81 - Other malaise (5) Hypokalemia: Status: Acute Code(s): E87.6 - Hypokalemia Plan Acute urinary tract infection -UA very suggestive of infection -Cultures pending -Continue ceftriaxone Debility/generalized weakness -Appears that this has been an ongoing issue -Was just discharged from the transitional care unit on 04/18/2022 as her insurance would no longer approve any days -Patient's baseline functional status is poor -PT/OT consultation -Case management is following and I discussed the case with him and they will discuss options with the patient and the -Typically lives in a two-story house with her and uses a wheeled walker to ambulate Hypokalemia -Acute on chronic -Patient is on 20 mEq p.o. twice daily at baseline -We will give an extra 40 mill equivalents today -Recheck BMP in a.m. Dementia -Patient follows with Dr. Mora -Patient is on a baseline medication for this -Previous CT showed very large ventricles but they did not feel she had normal pressure hydrocephalus -Follow-up with outpatient neurology as previously directed Gout -Continue home allopurinol CKD stage IIIb -Baseline creatinine appears to be between 1 and 1.2 -Remains at baseline -Continue to monitor Hypertension -Continue atenolol -Continue chlorthalidone Hyperlipidemia -Continue statin Depression -Continue citalopram DVT prophylaxis -Continue enoxaparin CODE STATUS -DNR CCA okay for short-term intubation Allergies/Procedures Done in Hospital Allergies No Known Allergies Allergy (Verified 04/02/22 20:59) Procedures: None Type of Care/Length of Stay Estimated LOS: Convalescent Care Less Than 30 days Type of Care Needed: Skilled Rehab Potential: Fair Prognosis: Fair Additional Orders/Day of Discharge Day of Discharge: 04/20/22 Dietary and Speech Recommendations Dietitian Recommendations/Changes: Will continue liberal Regular diet d/t hx of dementia and poor po intake/wt loss Will change ONS from ensure enlive to ann flavored ensure clear 4x/day w/ medpass Discharge Plan Admission Admit Date/Time: 04/18/22 21:22 Attending Provider: Brittni Del Cid Primary Care Provider: Michael Moore Consulting Providers: Jeovanny Gomez Discharge Orders/Prescriptions Prescriptions: No Action atenolol-chlorthalidone 50-25 mg tablet 50 tab PO DAILY Label Comments: TAKE 1 TABLET BY MOUTH EVERY DAY allopurinol 300 mg tablet 300 mg PO DAILY Label Comments: TAKE 1 TABLET BY MOUTH EVERY DAY lovastatin 20 mg tablet 20 mg PO DAILY Label Comments: TAKE 1 TABLET BY MOUTH EVERY DAY citalopram 10 mg Tablet 10 mg PO DAILY 30 Days Qty: 30 0RF potassium chloride [Klor-Con M20] 20 mEq Tablet,Er Particles/Crystals 20 meq PO BIDCM 30 Days Qty: 60 0RF Referrals / Follow Up: Michael Moore DO [Primary Care Provider] -
--- NOTE | 2022-04-20 11:10 | DS.PCM_ITS ---
Providers Date of Admission: 04/18/22 Date of Discharge: 04/20/22 Primary Care Physician: Dr. Michael Moore DO Reason For Visit: DEBILITY, UTI Diagnosis Discharge Diagnosis (1) Acute UTI: Status: Acute Code(s): N39.0 - Urinary tract infection, site not specified (2) Debility: Status: Acute Code(s): R53.81 - Other malaise (3) Generalized weakness: Status: Acute Code(s): R53.1 - Weakness (4) Declining functional status: Status: Acute Code(s): R53.81 - Other malaise (5) Hypokalemia: Status: Acute Code(s): E87.6 - Hypokalemia Plan Acute urinary tract infection -UA very suggestive of infection -Cultures pending -Continue ceftriaxone Debility/generalized weakness -Appears that this has been an ongoing issue -Was just discharged from the transitional care unit on 04/18/2022 as her insurance would no longer approve any days -Patient's baseline functional status is poor -PT/OT consultation -Case management is following and I discussed the case with him and they will discuss options with the patient and the -Typically lives in a two-story house with her and uses a wheeled walker to ambulate Hypokalemia -Acute on chronic -Patient is on 20 mEq p.o. twice daily at baseline -We will give an extra 40 mill equivalents today -Recheck BMP in a.m. Dementia -Patient follows with Dr. Mora -Patient is on a baseline medication for this -Previous CT showed very large ventricles but they did not feel she had normal pressure hydrocephalus -Follow-up with outpatient neurology as previously directed Gout -Continue home allopurinol CKD stage IIIb -Baseline creatinine appears to be between 1 and 1.2 -Remains at baseline -Continue to monitor Hypertension -Continue atenolol -Continue chlorthalidone Hyperlipidemia -Continue statin Depression -Continue citalopram DVT prophylaxis -Continue enoxaparin CODE STATUS -DNR CCA okay for short-term intubation Medications at Discharge Home Medications allopurinol 300 mg tablet 300 mg PO DAILY Gout 04/02/22 lovastatin 20 mg tablet 20 mg PO DAILY Cholesterol 04/02/22 citalopram 10 mg tablet 10 mg PO DAILY 30 days #30 tabs 04/14/22 potassium chloride 20 mEq tablet,extended release(part/cryst) (Klor-Con M) 20 meq PO BIDCM 30 days #60 tabs 04/14/22 acetaminophen 325 mg tablet (Tylenol) 650 mg PO Q6H PRN PRN Pain Score 1-10/Temp > 100.7 F #0 tabs 04/20/22 atenolol 50 mg tablet 50 mg PO DAILY #0 tabs 04/20/22 cefdinir 300 mg capsule 300 mg PO BID #10 caps 04/20/22 food supplemt, lactose-reduced (Ensure Clear) 120 ml PO 4X/DAY #0 mL 04/20/22 Hospital Course Operations None Procedures None Summary of Care Provided Minutes Spent on Discharge: 36 Hospital Course: Mrs. Will is a 81-year-old female who presented to emergency department [facility] on 04/18/2022 with weakness. The patient had just been admitted to the hospital at which time she was discharged to the TCU and was discharged from the transitional care unit on the day of admission. She st ates at home she just got weak and was lowered to the ground slowly. She had no injuries related to the fall. She had a similar presentation to her previous hospitalization on April 02 at which time she also had a respiratory tract infection. She has a history of dementia and sees Dr. Mora at baseline. She had an MRI previously that shows marked atrophy and CT scan here shows no acute process but profound atrophy with large ventricles. She has been evaluated for normal pressure hydrocephalus in the past and the neurologist felt that it was dementia not related to normal pressure hydrocephalus. The patient was admitted to the medical surgical floor and her UA looked infected and ther efore urine culture was obtained. She was placed on ceftriaxone on admission and her urine culture resulted with significant E. coli that was fairly sensitive. She was seen by physical and Occupational Therapy and deemed appropriate for ongoing skilled therapy. The ultimate plan for her to is to transition eventually to assisted living versus [facility] facility Per social work's discussion with the . We were able to get her back to the TCU in stable condition on 04/20/2022. She was discharged on Omnicef to complete a 7-day course of antibiotics for her urinary tract infection. She was also noted to have mild consistent hypokalemia during her hospitalization. She is on chlorthalidone for her hypertension and it is likely that her potassium issues are related to her chlorthalidone. Her blood pressure was normal but low normal during her hospitalization and therefore we held her chlorthalidone on discharge and continued her atenolol. She will remain on potassium supplementation however I recommend that a repeat CMP be done on 04/23/2022 to reevaluate her potassium. This was placed in her transfer summary is in order to be done on that date. Discharge diagnoses: Acute E. coli urinary tract infection Debility Generalized weakness Hypokalemia Dementia Gout CKD stage IIIb Hypertension Hyperlipidemia Depression Physical Exam Narrative Complaint today is some right great toe numbness which she states she experiences on and off. Const alert, no apparent distress, average body habitus and well nourished Constitutional Narrative: Overweight older white female sitting up in bed, appears comfortable nontoxic, patient states she is at [facility] but is able to tell me its March 2022 and that Ashwin Quintana is present in [facility] General Appearance: cooperative, comfortable, well kempt and well developed Orientation / Consciousness: awake Exam Limitations: other limitations Nutritional Appearance: overweight HEENT normocephalic, head/scalp atraumatic, hearing grossly normal bilaterally and moist oral mucous membranes HEENT Narrative: Mallampati is 2-3, dentition is poor, no thrush Eyes PERRL, EOMs intact bilaterally and conjunctivae normal Eyes Narrative: No scleral icterus Neck no lymphadenopathy, supple and no JVD Neck Narrative: Trachea midline, no thyroid enlargement Resp normal respiratory effort, no retractions, no use of accessory muscles and clear to auscultation bilaterally Auscultation: Negative for crackles, rales, rhonchi or wheezes Cardio regular rate, regular rhythm, S1 normal heart sound, S2 normal heart sound, no murmurs, no rub, no gallops, no clicks and no JVD GI normal to inspection, nondistended, normoactive bowel sounds, soft to palpation, non-tender and non-distended; Negative for hepatosplenomegaly Extremity no clubbing, cyanosis or edema Extremity Narrative: Trace lower extremity edema Skin no rashes or lesions noted, skin turgor normal and no jaundice Neuro oriented x3, CN's II-XII intact bilaterally, moves all extremities and no focal motor deficits Neuro Narrative: Significant generalized weakness proximal greater than distal Sensorium / Orientation: awake, alert, oriented to person, oriented to place and oriented to time Speech: speech normal Psych affect normal Weight / BMI Weight Weight: 76.1 kg Body Mass Index (BMI) 28.8 ABG / Lab / Microbiology Data Result Diagrams: 04/18/22 19:11 04/20/22 05:25 Laboratory: Laboratory Results - last 24 hr 04/20/22 05:25: Sodium 135 L, Potassium 3.4 L, Chloride 102, Carbon Dioxide 26.0, Anion Gap 7, BUN 25 H, Creatinine 1.02, Estim Creat Clear Calc 38.62, Est GFR (MDRD) Af Amer 67, Est GFR (MDRD) Non-Af 55 L, BUN/Creatinine Ratio 24.5 H, Glucose 97, Calcium 8.9, Phosphorus 2.9, Magnesium 1.7 Microbiology: Microbiology 04/18/22 19:42 Urine Catheter - Catheter Urine Culture - Final Escherichia coli Meaningful Use Info Meaningful Use Diagnoses (Choose all that apply): None applicable Discharge Plan Admission Admit Date/Time: 04/18/22 21:22 Primary Reason for Your Visit: Debility Attending Provider: Brittni Del Cid Primary Care Provider: Michael Moore Consulting Providers: Jeovanny Gomez Discharge Orders/Prescriptions Prescriptions: New atenolol 50 mg Tablet 50 mg PO DAILY Qty: 0 0RF Ensure Clear Liquid 120 ml PO 4X/DAY Qty: 0 0RF acetaminophen [Tylenol] 325 mg Tablet 650 mg PO Q6H PRN PRN (Reason: Pain Score 1-10/Temp > 100.7 F) Qty: 0 0RF cefdinir 300 mg capsule 300 mg PO BID Qty: 10 0RF Continued allopurinol 300 mg tablet 300 mg PO DAILY Label Comments: TAKE 1 TABLET BY MOUTH EVERY DAY lovastatin 20 mg tablet 20 mg PO DAILY Label Comments: TAKE 1 TABLET BY MOUTH EVERY DAY citalopram 10 mg Tablet 10 mg PO DAILY 30 Days Qty: 30 0RF potassium chloride [Klor-Con M20] 20 mEq Tablet,Er Particles/Crystals 20 meq PO BIDCM 30 Days Qty: 60 0RF Discontinued atenolol-chlorthalidone 50-25 mg tablet 50 tab PO DAILY Label Comments: TAKE 1 TABLET BY MOUTH EVERY DAY Referrals / Follow Up: Michael Moore DO [Primary Care Provider] - Within 1 Month Disposition Disposition (needs filled in before D/C Order can be placed): Long Term Facility Charges/Coding Visit Charges Inpatient E&M: 65064 SNF Disch >30 Min
[2022-04-20 13:51] VITALS: BP 113/72; PULSE 56; RESP 16; TEMP 36.6; O2SAT 96
--- NOTE | 2022-04-20 14:46 | NURSING ---
REPORT CALLED TO SHAYY FAUSTIN
== END 2022-04-20 15:00 | disposition skilled nursing facility (03) ==
LOC: ED 21:01 → MS3 21:22
PROVIDERS: Emergency Provider Emergency Medicine; PCP Preventive Medicine Occupational Medicine; Visit Provider Internal Medicine
DX: N39.0 Urinary tract infection, site not specified (principal); E11.621 Type 2 diabetes mellitus with foot ulcer; L97.529 Non-pressure chronic ulcer of other part of left foot with unspecified severity; F02.80 Dementia in other diseases classified elsewhere, unspecified severity, without behavioral disturbance, psychotic disturbance, mood disturbance, and anxiety; E11.42 Type 2 diabetes mellitus with diabetic polyneuropathy; N18.32 Chronic kidney disease, stage 3b; R53.81 Other malaise; I12.9 Hypertensive chronic kidney disease with stage 1 through stage 4 chronic kidney disease, or unspecified chronic kidney disease; R53.1 Weakness; E87.6 Hypokalemia; M10.9 Gout, unspecified; E78.5 Hyperlipidemia, unspecified; F32.A Depression, unspecified; B96.20 Unspecified Escherichia coli [E. coli] as the cause of diseases classified elsewhere; Z79.899 Other long term (current) drug therapy
CPT/HCPCS: 36415; 70450; 80048; 80053; 81001; 83735; 84100; 85025; 87077; 87086; 87088; 87186; 87426; 93005; 96361; 96365; 96366; 96372; 97162; 97166; 97802; 99218; 99285; J7040; A4216; G0378

== ENCOUNTER 2022-04-20 15:14 | Inpatient (IN) | payer MEDICARE, SELFPAY ==
[2022-04-20 15:19] VITALS: BP 131/64; PULSE 56; RESP 12; TEMP 35.9; O2SAT 98; BMI 28.5
[2022-04-20] MEDS: Ensure Clear 120 ML Liquid PO ×2 (17:25→21:33)
[2022-04-20] MEDS: Cefdinir 300 MG Capsule PO (17:25)
[2022-04-20] MEDS: Potassium Chloride Oral Tablet 20 MEQ PO (17:25)
--- NOTE | 2022-04-20 18:32 | NURSING ---
dr corrigan would like neurosurgery at [facility] notified to schedule appt for NPH with consult for shunt
--- NOTE | 2022-04-20 20:08 | HP.PCM_ITS ---
HPI - General General Date of Admission: 04/20/22 Date of Service: 04/20/22 Chief Complaint: Here for rehab. HPI Narrative 04/18/2022 TIFFANY DOMÍNGUEZ, is a 81 Female who presents to [facility] Emergency Department with fall. Discharged from TCU same day. 04/18/2022 EKG showed normal sinus rhythm, normal EKG. Increasing weakness, increasing confusion, walks with walker. Normal Pressure Hydrocephalus, neurosurgery did not recommend surgery. Decreased appetite, walking with walker, legs tired, fell. Urinalysis consistent with urinary tract infection, urine culture sent. Rocephin IV given, not safe to go home. 04/18/2022 Admit to Hospital. Rocephin IV for urinary tract infection, urine culture pending. PT/OT for TCU. Dr. Mora does not think patient has NPH. 04/19/2022 Replace potassium. Urine culture > 100,000 pansensitive E. Coli. 04/20/2022 Admit to TCU with debility, here for rehabilitation, strengthening, prior to disposition determination. On further questioning of resident , resident son, resident has never seen neurosurgery. Resident open to seeing neurosurgery to consider [employer] DEVELOPER shunt, otherwise resident to have slow decline to end of life. [facility] Medical History Breast cancer Hydrocephalus Hyperlipidemia Hypertension Kidney disease Stage 3b chronic kidney disease (CKD) Home Medications allopurinol 300 mg tablet 300 mg PO DAILY Gout 04/02/22 [History Last Taken Unknown] lovastatin 20 mg tablet 20 mg PO DAILY Cholesterol 04/02/22 [History Last Taken 04/01/22] acetaminophen 325 mg tablet (Tylenol) 650 mg PO Q6H PRN PRN Pain Score 1-10/Temp > 100.7 F #0 tabs 04/20/22 [Rx Last Taken Unknown] atenolol 50 mg tablet 50 mg PO DAILY BP 04/20/22 [History Last Taken Unknown] cefdinir 300 mg capsule 300 mg PO BID UTI 04/20/22 [History Last Taken Unknown] citalopram 10 mg tablet 10 mg PO DAILY mood 04/20/22 [History Last Taken Unknown] food supplemt, lactose-reduced (Ensure Clear) 120 ml PO 4X/DAY supplement 04/20/22 [History Last Taken Unknown] potassium chloride 20 mEq tablet,extended release(part/cryst) (Klor-Con M) 20 meq PO BIDCM potassium supplement 04/20/22 [History Last Taken Unknown] Allergy/AdvReac Type Severity Reaction Status Date / Time No Known Allergies Allergy Verified 04/02/22 20:59 Family History Other Alzheimer's dementia CVA (cerebral vascular accident) Diabetes Surgical History H/O left mastectomy H/O: hysterectomy S/P hysterectomy Social History household members: spouse Smoking Status: Never smoker alcohol intake: never substance use type: does not use ROS Constitutional Constitutional: Denies chills, fever(s) or weight gain ENT HEENT: Denies headache(s), nasal congestion or nasal discharge Cardiovascular Cardiovascular: Denies chest pain or palpitations Respiratory/Chest Respiratory/Chest: Denies cough, excessive phlegm production or shortness of breath with exertion Gastrointestinal Gastrointestinal: Denies abdominal pain, nausea or vomiting Genitourinary Genitourinary: Denies dysuria Musculoskeletal Musculoskeletal: Denies joint pain or joint swelling Integumentary Integumentary: Denies rash or wounds Neurologic Neurologic: Denies focal weakness, numbness or tingling Psychiatric Psychiatric: Denies anxiety, auditory hallucinations, depression, homicidal ideation or suicidal ideation Vital Signs Vital Signs Vital Signs: 04/20/22 15:19 04/20/22 15:19 Temperature 96.6 F L Temperature Source Temporal Pulse Rate 56 L Pulse Rhythm Regular Pulse Strength Normal (2+) Respiratory Rate 12 Respiratory Effort Normal Non-Labored Respiratory Depth Normal Respiratory Pattern Normal Blood Pressure 131/64 H Blood Pressure Mean 86 Blood Pressure Source Monitor Blood Pressure Position Sitting Blood Pressure Location Right Arm Pulse Ox 98 Oxygen Delivery Method Room Air Room Air Weight Weight: 75.977 kg Body Mass Index (BMI) 28.5 Physical Exam Const alert General Appearance: cooperative HEENT normocephalic Eyes PERRL and EOMs intact bilaterally Neck supple, no JVD and no carotid bruits Resp normal respiratory effort, normal air movement and clear to auscultation bilaterally Cardio regular rate and regular rhythm GI normal to inspection, nondistended, normoactive bowel sounds, non-tender and non-distended Extremity normal capillary refill General Extremity: Negative for edema Skin no rashes or lesions noted General Skin Exam: no breakdown Psych affect normal Appearance: appropriate Assessment & Plan Assessment/Plan (1) Debility: (2) Acute UTI: (3) Fall: (4) Normal pressure hydrocephalus: (5) Hypertension: (6) Hyperlipidemia: (7) Gout: (8) History of breast cancer: (9) Depression: PLAN: Plan 81 year old female with below past medical history hospitalized for weakness secondary to urinary tract infection, complicated by normal pressure hydrocephalus, admitted to TCU with debility, here for rehabilitation, strengthening, prior to disposition determination. * Debility - PT/OT. * Cognition - ST. * Pain - Tylenol 1000mg q6h prn pain (1-10). * Bowel - senna/colace 1 tablet bid prn, Dulcolax 10mg daily prn. * Adult immunization - Administer pneumonia vaccine, covid19 vaccine, flu vaccine. * DVT prophylaxis - Hold, risk low. * Gout - Allopurinol 300mg daily. * Hypertension - Atenolol 50mg daily. * Hyperlipidemia - Atorvastatin 5mg qhs. * E. Coli urinary tract infection - Cefdinir 300mg bid thru 04/25/2022. * Depression - Citalopram 10mg daily, stable chronic usp use, GDR not recommended. * Nutrition - Ensure Clear 120ml 4x/day. * Hypokalemia - KCL 20meq bid. * NPH - Schedule appt with Neurosurgery to consider [employer] DEVELOPER shunt.
[2022-04-20] MEDS: Atorvastatin Calcium 10 MG Tablet 5 MG PO (21:32)
[2022-04-21 04:50] VITALS: BP 131/66; PULSE 60
[2022-04-21] MEDS: Citalopram 10 MG Tablet PO (04:50)
[2022-04-21] MEDS: Atenolol 50 MG Tablet PO (04:50)
[2022-04-21] MEDS: Cefdinir 300 MG Capsule PO ×2 (04:50→17:21)
[2022-04-21 05:49] LABS: Absolute Lymphocyte Count 0.87 X10^3/uL (0.83-4.51); Absolute Neutrophil Count 3.9 X10^3/uL (2.0-7.7); Basophil# 0.03 X10^3/uL; Basophil% 0.5 % (0-1); Eosinophil# 0.22 X10^3/uL; Eosinophils% 3.9 % (0-5); Hematocrit 32.7 % (37-47); Hemoglobin 10.9 g/dL (12.0-15.0); Lymphocyte # 0.87 X10^3/ul (0.83-4.51); Lymphocyte % 15.6 % (19-41); Mean Corp Hgb Conc 33.3 g/dL (32-36); Mean Corpuscular Hgb 30.4 pg (27.0-32.0); Mean Corpuscular Volume 91.1 fL (81-99); Mean Platelet Vol. 9.7 fl (6.2-12.0); Monocyte# 0.55 X10^3/uL; Monocyte% 9.9 % (0-10); NRBC Flagged by Analyzer 0 % (0-5); Neutrophil # 3.89 X10^3/uL (2.7-7.7); Neutrophil % 69.7 % (47-70); Platelet Count 253 K/mm3 (150-450); RBC Distribution Width CV 13.3 % (11.6-14.6); RBC Distribution Width SD 44.6 fl (35.1-43.9); Red Blood Count 3.59 M/mm3 (4.2-5.4); White Blood Count 5.6 K/mm3 (4.4-11.0)
[2022-04-21 06:13] LABS: Anion Gap 7 (5-15); BUN 22 mg/dL (7-18); BUN/Creat Ratio 22.5 RATIO (10-20); Calcium,Total 9.3 mg/dL (8.5-10.1); Chloride 102 mmol/L (98-107); Creatinine, Serum 0.98 mg/dL (0.55-1.02); EST Glomerular Filtration Rate 58 mL/min (>60); Est Glom Filt Rate - Afr Amer 70 mL/min (>60); Glucose 100 mg/dL (74-106); Potassium 4.1 mmol/L (3.5-5.1); Sodium Level 135 mmol/L (136-145)
[2022-04-21] MEDS: Potassium Chloride Oral Tablet 20 MEQ PO ×2 (08:18→17:21)
[2022-04-21] MEDS: Allopurinol 300 MG Tablet PO (08:18)
--- NOTE | 2022-04-21 10:13 | NURSING ---
Rachel Scheduled with [facility] with Dr. Grant for May 13 @ 1300.
--- NOTE | 2022-04-21 11:44 | NURSING ---
Authorization Specialist Note: Res readmitted to TCU and Activity Assessment has not changed since prior admission. See previous assessment for details. Will offer resident in room visits and in room leisure materials.
[2022-04-21] MEDS: Ensure Clear 120 ML Liquid PO ×3 (12:40→19:57)
[2022-04-21 14:00] VITALS: RESP 17; TEMP 36.2; O2SAT 97
--- NOTE | 2022-04-21 15:12 | PCM.PN.DRR ---
TCU RX Drug Regimen Review Subjective: TCU Admission. Resident was recently on TCU, discharged and returned to the ER for weakness on the same day. Admitted to the hospital for weakness secondary to UTI complicated by normal pressure hydrocephalus. Treated with ceftriaxone for UTI (urine culture grew fairly sensitive E. coli). Admitted to TCU with debility for strengthening and rehabilitation prior to discharge disposition. Objective: Allergies No Known Allergies Allergy (Verified 04/02/22 20:59) Current Medications Generic Name Dose Route Start Last Admin Trade Name Freq PRN Reason Stop Dose Admin Acetaminophen 1,000 mg 04/20/22 20:24 Acetaminophen 500 Mg Tablet PO Q6H PRN PRN Pain Score 1-10 Allopurinol 300 mg 04/21/22 08:00 04/21/22 08:18 Allopurinol 300 Mg Tablet PO 300 mg DAILYCM SRINIVAS Administration Atenolol 50 mg 04/21/22 06:00 04/21/22 04:50 Atenolol 50 Mg Tablet PO 50 mg DAILY SRINIVAS Administration Atorvastatin Calcium 5 mg 04/20/22 22:00 04/20/22 21:32 Atorvastatin Calcium 10 Mg Tablet PO 5 mg QHS SRINIVAS Administration Bisacodyl 10 mg 04/20/22 20:23 Bisacodyl 5 Mg Tablet PO DAILY PRN CONSTIPATION Cefdinir 300 mg 04/20/22 18:00 04/21/22 04:50 Cefdinir 300 Mg Capsule PO 04/25/22 06:01 300 mg BID SRINIVAS Administration Citalopram Hydrobromide 10 mg 04/21/22 06:00 04/21/22 04:50 Citalopram 10 Mg Tablet PO 10 mg DAILY SRINIVAS Administration Nutritional Formula (Lactose Free) 120 ml 04/20/22 17:00 04/21/22 12:40 Ensure Clear 120 Ml Liquid PO 120 ml 4X/DAY SRINIVAS Administration Potassium Chloride 20 meq 04/20/22 17:00 04/21/22 08:18 Potassium Chloride Oral Tablet 20 Meq PO 20 meq BIDCM SRINIVAS Administration Senna/Docusate Sodium 1 tablet 04/20/22 20:23 Senna/Docusate Sodium 1 Tablet PO BID PRN Constipation Sodium Chloride 10 - 40 ml 04/20/22 15:30 0.9% Saline Lock 10 Ml Syringe IV UD PRN SALINE FLUSH Problem List (Last Reviewed 04/20/22 @ 20:[address] Valdemar Mclaughlin MD) Depression (Acute) Gout (Acute) Fall (Acute) Debility (Acute) Normal pressure hydrocephalus (Acute) History of breast cancer (Acute) Hypertension (Chronic) Hyperlipidemia (Acute) Acute UTI (Acute) Vital Signs Temp Pulse Resp BP Pulse Ox O2 Del Method 96.6 F L 60 12 131/66 H 98 Room Air 04/20/22 15:19 04/21/22 04:50 04/20/22 15:19 04/21/22 04:50 04/20/22 15:19 04/20/22 15:19 Oxygen Delivery Method Room Air Weight: 75.977 kg Body Mass Index (BMI) 28.5 Sodium 135 mmol/L (136-145) L 04/21/22 05:20 Potassium 4.1 mmol/L (3.5-5.1) 04/21/22 05:20 Chloride 102 mmol/L (98-107) 04/21/22 05:20 Carbon Dioxide 26.0 mmol/L (21.0-32.0) 04/21/22 05:20 Anion Gap 7 (5-15) 04/21/22 05:20 BUN 22 mg/dL (7-18) H 04/21/22 05:20 Creatinine 0.98 mg/dL (0.55-1.02) 04/21/22 05:20 Est GFR (MDRD) Af Amer 70 mL/min (>60) 04/21/22 05:20 Est GFR (MDRD) Non-Af 58 mL/min (>60) L 04/21/22 05:20 BUN/Creatinine Ratio 22.5 RATIO (10-20) H 04/21/22 05:20 Glucose 100 mg/dL (74-106) 04/21/22 05:20 Assessment/Plan: 1. Pain: acetaminophen 1000mg PO Q6H PRN pain 1-10. Resident has not required any doses. Please continue to monitor for increased pain and PRN usage. 2. Bowel: senna/docusate 1T PO BID PRN constipation and bisacodyl 10mg PO daily PRN constipation. Resident has not had any doses of senna/docusate or bisacodyl. Please continue to monitor for constipation and PRN usage. Resident has not had a documented bowel movement. 3. E. coli UTI: cefdinir 300mg PO BID thru 7/3/22. E. coli from urine culture was sensitive to 3rd generation cephalosporins. Please continue to monitor for S/S of infection, diarrhea, renal function and discolored stool. 4. Gout: allopurinol 300mg PO daily. Please continue to monitor for S/S of gout and renal function. 5. Hypertension: atenolol 50mg PO daily. Please continue to monitor BP (last 131/66) and HR (last 60). 6. Hyperlipidemia: atorvastatin 5mg PO QHS. Resident does not have a lipid panel in the chart. Please consider ordering a lipid panel now and then annually as clinically appropriate. Thanks. Please continue to monitor muscle pain and AST/ALT (last WNL 04/14/22). 7. Hypokalemia: potassium chloride 20mEq PO BIDCM. Please continue to monitor potassium levels (last 4.1mmol/L). Assessment/Plan for indications treated with psychotropic medications: 1. Depression: citalopram 10mg PO daily. Resident was just started on this medication on 04/12/22. GDR not appropriate given that this medication takes weeks for patient to feel full affect. Please continue to monitor for GI side effects and suicidal ideation (blackbox warning). Of note, this medication is on the BEERs list for falls and resident has been weak. Please continue to monitor for falls. Medical chart and medication regimen reviewed. The following medication irregularities or issues were identified: 1. Atorvastatin 5mg PO QHS. Resident does not have a lipid panel in the chart. Please consider ordering a lipid panel now and then annually as clinically appropriate. Thanks. Date of Note:: 04/21/22
--- NOTE | 2022-04-21 15:59 | CASEMGMT ---
Social Work SW met with pt to complete initial assessment. Pt is known to this SW from previous visits and pt is able to recognized this worker. Pt wishes to have her as primary cocntact and remain involved in updates/DC planning. SW discussed code status and MOLST form with pt and assisted in completing MOLST form. Pt wishes to be DNRCCA with no intubation. MOLST communicated to physician and placed on pt chart. SW explained [facility] benefit and that NRD is 7/5 and continued stay is not garanteed. Pt is understanding that she cannot return home with her and and son are looking into assisted living facilities. Son aware to let SW know facility of choice and SW will proceed with referral. NGUYEN Berger
[2022-04-21] MEDS: Atorvastatin Calcium 10 MG Tablet 5 MG PO (19:56)
[2022-04-21 22:00] VITALS: PULSE 68; RESP 18; O2SAT 97
[2022-04-22] MEDS: Atenolol 50 MG Tablet PO (05:58)
[2022-04-22] MEDS: Citalopram 10 MG Tablet PO (05:58)
[2022-04-22] MEDS: Cefdinir 300 MG Capsule PO ×2 (05:58→17:45)
[2022-04-22] MEDS: Potassium Chloride Oral Tablet 20 MEQ PO ×2 (08:21→17:45)
[2022-04-22] MEDS: Allopurinol 300 MG Tablet PO (08:21)
[2022-04-22] MEDS: Ensure Clear 120 ML Liquid PO ×2 (12:36→19:56)
[2022-04-22 14:00] VITALS: BP 143/79; PULSE 54; RESP 17; TEMP 36.3; O2SAT 99
--- NOTE | 2022-04-22 15:24 | NURSING ---
Pt and family updated on Positive Covid Pt.
[2022-04-22] MEDS: Atorvastatin Calcium 10 MG Tablet 5 MG PO (19:56)
[2022-04-23] MEDS: Acetaminophen 500 MG Tablet 1000 MG PO ×3 (00:08→22:06)
--- NOTE | 2022-04-23 00:14 | NURSING ---
Patient c/o pain in feet. PRN Tylenol administered as directed. Will continue to monitor.
[2022-04-23] MEDS: Cefdinir 300 MG Capsule PO ×2 (05:11→17:30)
[2022-04-23] MEDS: Citalopram 10 MG Tablet PO (05:11)
[2022-04-23] MEDS: Ensure Clear 120 ML Liquid PO ×2 (05:11→22:02)
[2022-04-23] MEDS: Allopurinol 300 MG Tablet PO (07:59)
[2022-04-23] MEDS: Potassium Chloride Oral Tablet 20 MEQ PO ×2 (07:59→17:30)
[2022-04-23 14:00] VITALS: BP 134/65; PULSE 58; RESP 16; TEMP 36.1; O2SAT 99
--- NOTE | 2022-04-23 15:13 | CASEMGMT ---
BIMS and PHQ9 interviews completed on this date for MDS assessment. NGUYEN Berger
--- NOTE | 2022-04-23 16:46 | CASEMGMT ---
Social Work SW spoke with pt and regarding discharge plan. Pt spouse states he and pt son have been touring AL facilities this week. At this point they like [facility] but a final decision has not been made. Pt is now requesting to return home. SW inquired if pt spouse can care for pt at home at he is considering his ability and this option. SW did inform pt and spouse that NRD with insurance is 7/5 and continued stay is not guaranteed. Decision will have be made soon. ARIADNA will continue to follow for D/C planning. NGUYEN Berger
[2022-04-23 22:00] VITALS: PULSE 61; RESP 16; O2SAT 95
[2022-04-23] MEDS: Atorvastatin Calcium 10 MG Tablet 5 MG PO (22:02)
[2022-04-24] MEDS: Ensure Clear 120 ML Liquid PO ×4 (06:32→20:11)
[2022-04-24] MEDS: Acetaminophen 500 MG Tablet 1000 MG PO (06:33)
[2022-04-24] MEDS: Citalopram 10 MG Tablet PO (06:34)
[2022-04-24] MEDS: Atenolol 50 MG Tablet PO (06:34)
[2022-04-24] MEDS: Cefdinir 300 MG Capsule PO ×2 (06:34→17:13)
[2022-04-24 07:11] VITALS: BP 147/64; PULSE 55
[2022-04-24] MEDS: Allopurinol 300 MG Tablet PO (08:33)
[2022-04-24] MEDS: Potassium Chloride Oral Tablet 20 MEQ PO ×2 (08:33→17:13)
--- NOTE | 2022-04-24 12:53 | NURSING ---
notified pt and that a staff member tested positive covid
[2022-04-24 14:17] VITALS: BP 120/57; PULSE 57; RESP 16; TEMP 36.7; O2SAT 96
[2022-04-24] MEDS: Atorvastatin Calcium 10 MG Tablet 5 MG PO (20:11)
[2022-04-24 20:14] VITALS: PULSE 54; RESP 18; O2SAT 96
[2022-04-25] MEDS: Ensure Clear 120 ML Liquid PO ×4 (06:00→20:19)
[2022-04-25] MEDS: Citalopram 10 MG Tablet PO (06:00)
[2022-04-25] MEDS: Atenolol 50 MG Tablet PO (06:00)
[2022-04-25] MEDS: Cefdinir 300 MG Capsule PO (06:00)
[2022-04-25] MEDS: Allopurinol 300 MG Tablet PO (08:32)
[2022-04-25] MEDS: Potassium Chloride Oral Tablet 20 MEQ PO ×2 (08:32→17:23)
[2022-04-25 14:00] VITALS: BP 111/56; PULSE 54; RESP 15; TEMP 36.3; O2SAT 98
[2022-04-25] MEDS: Atorvastatin Calcium 10 MG Tablet 5 MG PO (20:19)
[2022-04-26] MEDS: Acetaminophen 500 MG Tablet 1000 MG PO (02:59)
--- NOTE | 2022-04-26 03:23 | NURSING ---
Pt transferred from bed to recliner chair d/t pain. Warm blanket applied and gently wrapped around rt knee. BLE elevated. Call light w/ in reach. Will continue to follow.
[2022-04-26] MEDS: Ensure Clear 120 ML Liquid PO (05:45)
[2022-04-26] MEDS: Citalopram 10 MG Tablet PO (05:47)
[2022-04-26 05:51] VITALS: BP 116/57; PULSE 53
[2022-04-26] MEDS: Allopurinol 300 MG Tablet PO (08:25)
[2022-04-26] MEDS: Potassium Chloride Oral Tablet 20 MEQ PO ×2 (08:25→17:32)
[2022-04-26 10:00] VITALS: PULSE 61; RESP 18; O2SAT 98
[2022-04-26 14:00] VITALS: BP 108/55; PULSE 55; RESP 16; TEMP 36.1; O2SAT 97
--- NOTE | 2022-04-26 16:45 | RAD_ITS ---
INDICATION: Pain EXAMINATION/TECHNIQUE: X-RAY - RIGHT XR Knee 3 Views 3 VIEWS COMPARISON: None. FINDINGS: SOFT TISSUES: Vascular atherosclerotic calcifications distal superficial femoral/proximal popliteal artery. No radiopaque foreign body. No joint effusion. Calcific density projecting over the dorsal distal lateral femur may represent intra-articular loose body. BONES/JOINTS: No acute fracture or malalignment. There is severe patellofemoral joint space loss, subchondral sclerosis and moderate bony proliferative changes. Mild medial and lateral femoral compartment joint space loss and minimal degenerative osteophytosis. No sclerotic or destructive changes observed. RAD/Knee 3 Views IMPRESSION: Advanced degenerative changes patellofemoral joint. Questionable intra-articular loose body. No joint effusion. Peripheral atherosclerosis. Electronically Signed: Uday Hopkins DO at 18:38 EDT ,
[2022-04-26] MEDS: Atorvastatin Calcium 10 MG Tablet 5 MG PO (20:53)
[2022-04-26] MEDS: Arthritis Pain Compound 60 CLICK TUBE TOPICAL (20:54)
[2022-04-27] MEDS: Acetaminophen 500 MG Tablet 1000 MG PO (03:13)
--- NOTE | 2022-04-27 03:24 | NURSING ---
Pt c/o pain in bilateral knees. PRN Tylenol administered as requested and ordered. Patient assisted to recliner, warm blanket placed around knees. Will continue to monitor.
[2022-04-27] MEDS: Ensure Clear 120 ML Liquid PO (06:00)
[2022-04-27] MEDS: Citalopram 10 MG Tablet PO (06:01)
[2022-04-27] MEDS: Arthritis Pain Compound 60 CLICK TUBE TOPICAL ×2 (06:02→17:41)
[2022-04-27 06:11] VITALS: BP 112/49; PULSE 63
--- NOTE | 2022-04-27 08:49 | CASEMGMT ---
Addendum entered by Mariama Murphy 04/28/22 15:02: Received confirmation from [facility] that pt can admit 04/30 to AL and they will provide ongoing PT/OT/ST through their therapy services with [facility]. Updated pt. Pt appreciative. Plan: DC 04/30 to [facility], PT/OT/ST Addendum entered by Mariama Murphy 04/27/22 17:18: Followed up with pt. Pt and spoke and agreeable to DC date. Confirmed the plan is for pt to DC to [facility]. Contacted Susan at [facility] and she is waiting for official acceptance from [facility]. ARIADNA to await outcome. Plan: DC 04/30, pending outcome for [facility] Addendum entered by Mariama Murphy 04/27/22 13:24: Insurance issued LCD 04/29, DC 04/30. Updated [facility]. Spoke with pt. Pt did not want to sign NOMNC or agree to DC until is present. He will be visiting this afternoon. SW to revisit. Original Note: Social Work Received correspondence from [facility] requesting clinical information, toured over the weekend and would like pt to transfer there. Clinicals sent. Insurance update today. Will continue to follow. ADE RiggsW
[2022-04-27] MEDS: Allopurinol 300 MG Tablet PO (09:01)
[2022-04-27] MEDS: Potassium Chloride Oral Tablet 20 MEQ PO ×2 (09:01→17:41)
[2022-04-27 14:00] VITALS: BP 134/74; PULSE 60; RESP 14; TEMP 36.6; O2SAT 98
[2022-04-27] MEDS: Atorvastatin Calcium 10 MG Tablet 5 MG PO (20:07)
[2022-04-27 20:12] VITALS: PULSE 62; RESP 16; O2SAT 98
[2022-04-28] MEDS: Arthritis Pain Compound 60 CLICK TUBE TOPICAL ×2 (04:48→18:00)
[2022-04-28] MEDS: Citalopram 10 MG Tablet PO (04:48)
[2022-04-28] MEDS: Atenolol 25 MG Tablet PO (04:48)
[2022-04-28 04:55] VITALS: BP 130/65; PULSE 65
[2022-04-28 05:32] LABS: Absolute Lymphocyte Count 0.89 X10^3/uL (0.83-4.51); Absolute Neutrophil Count 3.1 X10^3/uL (2.0-7.7); Basophil# 0.02 X10^3/uL; Basophil% 0.4 % (0-1); Eosinophil# 0.19 X10^3/uL; Eosinophils% 4.1 % (0-5); Hematocrit 34.9 % (37-47); Hemoglobin 11.4 g/dL (12.0-15.0); Lymphocyte # 0.89 X10^3/ul (0.83-4.51); Mean Corp Hgb Conc 32.7 g/dL (32-36); Mean Corpuscular Hgb 30.6 pg (27.0-32.0); Mean Corpuscular Volume 93.8 fL (81-99); Mean Platelet Vol. 9.3 fl (6.2-12.0); Monocyte# 0.42 X10^3/uL; NRBC Flagged by Analyzer 0 % (0-5); Neutrophil # 3.14 X10^3/uL (2.7-7.7); Neutrophil % 67.1 % (47-70); Platelet Count 277 K/mm3 (150-450); RBC Distribution Width CV 13.7 % (11.6-14.6); RBC Distribution Width SD 46.8 fl (35.1-43.9); Red Blood Count 3.72 M/mm3 (4.2-5.4); White Blood Count 4.7 K/mm3 (4.4-11.0)
[2022-04-28 06:11] LABS: Anion Gap 4 (5-15); BUN 20 mg/dL (7-18); BUN/Creat Ratio 20.7 RATIO (10-20); Calcium,Total 9.8 mg/dL (8.5-10.1); Chloride 104 mmol/L (98-107); Creatinine, Serum 0.96 mg/dL (0.55-1.02); EST Glomerular Filtration Rate 59 mL/min (>60); Est Glom Filt Rate - Afr Amer 72 mL/min (>60); Estimated Creatinine Clearance 41.03 ml/min; Glucose 88 mg/dL (74-106); Sodium Level 136 mmol/L (136-145)
[2022-04-28] MEDS: Allopurinol 300 MG Tablet PO (08:27)
[2022-04-28] MEDS: Potassium Chloride Oral Tablet 20 MEQ PO ×2 (08:27→18:01)
--- NOTE | 2022-04-28 09:45 | CASEMGMT ---
Addendum entered by Mariama Murphy 04/28/22 15:00: Received confirmation from [facility] that pt can admit 8 to AL and they will provide ongoing PT/OT through their therapy services with [facility]. Updated pt. Pt appreciative. Plan: DC 8 to [facility], PT/OT Original Note: Social Work IDT met with patient and for care plan meeting. Discussed patient's progress in PT/OT/ST/SN. Pt is discharging 04/30 - the goal is [facility]. Awaiting confirmation. SW to follow to finalize DC. to transport at [place]. Mariama Murphy, ADE VALLESW
[2022-04-28 11:03] VITALS: PULSE 54; O2SAT 100
[2022-04-28 14:00] VITALS: BP 113/56; PULSE 57; RESP 15; TEMP 36.4; O2SAT 98
--- NOTE | 2022-04-28 15:10 | DS.PCM_ITS ---
Providers Date of Admission: 04/20/22 Primary Care Physician: Dr. Michael Moore DO Reason For Visit: UTI, DEBILITY Diagnosis Discharge Diagnosis (1) Debility: Status: Acute Code(s): R53.81 - Other malaise (2) Acute UTI: Status: Acute Code(s): N39.0 - Urinary tract infection, site not specified (3) Fall: Status: Acute Code(s): W19.XXXA - Unspecified fall, initial encounter (4) Normal pressure hydrocephalus: Status: Acute Code(s): G91.2 - (Idiopathic) normal pressure hydrocephalus (5) Hypertension: Status: Chronic Code(s): I10 - Essential (primary) hypertension (6) Hyperlipidemia: Status: Acute Code(s): E78.5 - Hyperlipidemia, unspecified (7) Gout: Status: Acute Code(s): M10.9 - Gout, unspecified (8) History of breast cancer: Status: Resolved Code(s): Z85.3 - Personal history of malignant neoplasm of breast (9) Depression: Status: Acute Code(s): F32.A - Depression, unspecified Plan 81 year old female with below past medical history hospitalized for weakness secondary to urinary tract infection, complicated by normal pressure hydroc ephalus, admitted to TCU with debility, here for rehabilitation, strengthening, prior to disposition determination. * Debility - PT/OT. * Cognition - ST. * Pain - Tylenol 1000mg q6h prn pain (1-10). * Bowel - senna/colace 1 tablet bid prn, Dulcolax 10mg daily prn. * Adult immunization - Administer pneumonia vaccine, covid19 vaccine, flu vaccine. * DVT prophylaxis - Hold, risk low. * Gout - Allopurinol 300mg daily. * Hypertension - Atenolol 50mg daily. * Hyperlipidemia - Atorvastatin 5mg qhs. * E. Coli urinary tract infection - Cefdinir 300mg bid thru 04/25/2022. 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 * Nutrition - Ensure Clear 120ml 4x/day. * Hypokalemia - KCL 20meq bid. * NPH - Schedule appt with Neurosurgery to consider TURBO GENERATOR OILER shunt. Medications at Discharge Home Medications allopurinol 300 mg tablet 300 mg PO DAILY Gout 04/02/22 lovastatin 20 mg tablet 20 mg PO DAILY Cholesterol 04/02/22 acetaminophen 325 mg tablet (Tylenol) 650 mg PO Q6H PRN PRN Pain Score 1-10/Temp > 100.7 F #0 tabs 04/20/22 atenolol 50 mg tablet 50 mg PO DAILY BP 04/20/22 citalopram 10 mg tablet 10 mg PO DAILY mood 04/20/22 potassium chloride 20 mEq tablet,extended release(part/cryst) (Klor-Con M) 20 meq PO BIDCM potassium supplement 04/20/22 Hospital Course Operations None Procedures None Summary of Care Provided Minutes Spent on Discharge: 35 Hospital Course: 81 year old female with below past medical history hospitalized for weakness secondary to urinary tract infection, complicated by normal pressure hydrocephalus, admitted to TCU with debility, here for rehabilitation, strengthening, prior to disposition determination. Discharge to [facility] 04/30/2022, PT/OT/ST. Physical Exam Const alert General Appearance: cooperative HEENT normocephalic Eyes PERRL and EOMs intact bilaterally Neck supple, no JVD and no carotid bruits Resp normal respiratory effort, normal air movement and clear to auscultation bilaterally Cardio regular rate and regular rhythm GI normal to inspection, nondistended, normoactive bowel sounds, non-tender and non-distended Extremity normal capillary refill General Extremity: Negative for edema Skin no rashes or lesions noted General Skin Exam: no breakdown Psych affect normal Appearance: appropriate Weight / BMI Weight Weight: 75.971 kg Body Mass Index (BMI) 28.5 ABG / Lab / Microbiology Data Result Diagrams: 04/28/22 05:11 04/28/22 05:11 Laboratory: Laboratory Results - last 24 hr 04/28/22 05:11: WBC 4.7, RBC 3.72 L, Hgb 11.4 L, Hct 34.9 L, MCV 93.8, MCH 30.6, MCHC 32.7, RDW Std Deviation 46.8 H, RDW Coeff of Ari 13.7, Plt Count 277, MPV 9.3, Immature Gran % (Auto) 0.400, Neut % (Auto) 67.1, Lymph % (Auto) 19.0, Otero % (Auto) 9.0, Eos % (Auto) 4.1, Baso % (Auto) 0.4, Absolute Neuts (auto) 3.1, Absolute Lymphs (auto) 0.89, Nucleated RBC % 0 04/28/22 05:11: Sodium 136, Potassium 4.0, Chloride 104, Carbon Dioxide 28.0, Anion Gap 4 L, BUN 20 H, Creatinine 0.96, Estim Creat Clear Calc 41.03, Est GFR (MDRD) Af Amer 72, Est GFR (MDRD) Non-Af 59 L, BUN/Creatinine Ratio 20.7 H, Glucose 88, Calcium 9.8 Microbiology: Microbiology 04/27/22 14:49 Nasal Secretion SARS-CoV-2 Antigen (Rapid) - Final D/C Instructions Discharge Diet: No restrictions Discharge Activity: Return to Normal Activity, May Shower and Use Walker Weight Bearing Status: Weight bearing as tolerated Call your doctor if you observe: Fever of 101 or Higher, Numbness or Tingling, Inability to urinate, Inability to have a bowel movement, Shortness of breath, Fainting spells, Swelling in the ankles, Chest pain and Uncontrolled pain Additional Instructions: Discharge to [facility] 04/30/2022, PT/OT/ST. Please Follow Up With: Mary Ann Grant MD When: As scheduled. Meaningful Use Info Meaningful Use Diagnoses (Choose all that apply): None applicable Discharge Plan Admission Admit Date/Time: 04/20/22 15:14 Primary Reason for Your Visit: Debility. Attending Provider: Valdemar Mclaughlin Chi Primary Care Provider: Michael Moore Instructions Additional Instructions / Restrictions: Discharge to [facility] 04/30/2022, PT/OT/ST. Discharge Orders/Prescriptions Prescriptions: Continued allopurinol 300 mg tablet 300 mg PO DAILY Label Comments: TAKE 1 TABLET BY MOUTH EVERY DAY lovastatin 20 mg tablet 20 mg PO DAILY Label Comments: TAKE 1 TABLET BY MOUTH EVERY DAY acetaminophen [Tylenol] 325 mg Tablet 650 mg PO Q6H PRN PRN (Reason: Pain Score 1-10/Temp > 100.7 F) Qty: 0 0RF citalopram 10 mg tablet 10 mg PO DAILY potassium chloride [Klor-Con M20] 20 mEq tablet,ER particles/crystals 20 meq PO BIDCM atenolol 50 mg tablet 50 mg PO DAILY Discontinued cefdinir 300 mg capsule 300 mg PO BID Ensure Clear Liquid 120 ml PO 4X/DAY Referrals / Follow Up: Michael Moore DO [Primary Care Provider] - Disposition Disposition (needs filled in before D/C Order can be placed): Assisted Living
--- NOTE | 2022-04-28 19:48 | TREXTCAR_ITS ---
Diet Diet Order/Speech Therapy: 04/20/22 15:34 Diet: Regular - General Food consistency:: Regular Liquid Consistency:: Regular/Thin Is pt able to select menu?: Yes Routine Orders/Code Status Code Status: DNRCC-A (No intubation.) Therapies Weight Bearing: Weight bearing as tolerated Physical Therapy: Eval and Treat Occupational Therapy: Eval and Treat Speech Therapy: Eval and Treat Problem/Diagnosis (1) Debility: Status: Acute Code(s): R53.81 - Other malaise (2) Acute UTI: Status: Acute Code(s): N39.0 - Urinary tract infection, site not specified (3) Fall: Status: Acute Code(s): W19.XXXA - Unspecified fall, initial encounter (4) Normal pressure hydrocephalus: Status: Acute Code(s): G91.2 - (Idiopathic) normal pressure hydrocephalus (5) Hypertension: Status: Chronic Code(s): I10 - Essential (primary) hypertension (6) Hyperlipidemia: Status: Acute Code(s): E78.5 - Hyperlipidemia, unspecified (7) Gout: Status: Acute Code(s): M10.9 - Gout, unspecified (8) History of breast cancer: Status: Resolved Code(s): Z85.3 - Personal history of malignant neoplasm of breast (9) Depression: Status: Acute Code(s): F32.A - Depression, unspecified Plan 81 year old female with below past medical history hospitalized for weakness secondary to urinary tract infection, complicated by normal pressure hydroceph alus, admitted to TCU with debility, here for rehabilitation, strengthening, prior to disposition determination. * Debility - PT/OT. * Cognition - ST. * Pain - Tylenol 1000mg q6h prn pain (1-10). * Bowel - senna/colace 1 tablet bid prn, Dulcolax 10mg daily prn. * Adult immunization - Administer pneumonia vaccine, covid19 vaccine, flu vaccine. * DVT prophylaxis - Hold, risk low. * Gout - Allopurinol 300mg daily. * Hypertension - Atenolol 50mg daily. * Hyperlipidemia - Atorvastatin 5mg qhs. * E. Coli urinary tract infection - Cefdinir 300mg bid thru 04/25/2022. * Depression - Citalopram 10mg daily, stable chronic truck terminal manager use, GDR not recommended. * Nutrition - Ensure Clear 120ml 4x/day. * Hypokalemia - KCL 20meq bid. * NPH - Schedule appt with Neurosurgery to consider BISTRO ATTENDANT shunt. Allergies/Procedures Done in Hospital Allergies No Known Allergies Allergy (Verified 04/02/22 20:59) Procedures: None Type of Care/Length of Stay Estimated LOS: More Than 30 Days Type of Care Needed: Senior Care/Assisted Living Rehab Potential: Fair Prognosis: Poor Additional Orders/Day of Discharge Day of Discharge: 04/30/22 Dietary and Speech Recommendations Dietitian Recommendations/Changes: Will continue liberal Regular diet Will discontinue 4 oz ensure clear 4x/day w/ medpass -d/t c/o issues with ONS making her go to bathroom. Speech Linguistic Eval Summary: Total BCAT? Score: 25 Impression: This BCAT? score indicates significant cognitive impairment or dementia (mild level). This BCAT? total score is suggestive of significant cognitive impairment. Persons with his score usually have difficulties in making new memories, as well as problems in other cognitive areas, especially with executive functions. As for impairment in memory, this should not be confused with the ability to recall events, places, and people from the distant past. When healthcare professionals think about memory capability, they are referring to the prospective ability to make a new memory. Many people with mild or moderate dementia are able to recall facts from the remote past, but have problems remembering recent events and learning new material. Individuals with this BCAT? score may also have problems with executive control functions (ECFs). ECFs can be thought of as our cognitive material control manager center. Executive abilities include complex cognitive skills such as judgment, planning, organization, and problem-solving. ECFs have a direct impact on the self-management of instrumental activities of daily living (IADL), such as shopping, laundry, transportation, medication, telephone, housekeeping, and finances. Persons with this BCAT? score often have problems in these areas, which could place them at safety risk if they are living in a situation without some level of direct support. Dementia is a syndrome, not a specific diagnosis. Dementia is caused by a specific disease or diseases. The most common cause of dementia is Alzheimer's disease. However, further evaluation should be done before determining a specific cause. The BCAT? test produces a score that can help stage dementia or significant cognitive dysfunction. It can also help identify individuals with mild versus moderate - severe dementia. BCAT? score of 25 to 33 are suggestive of mild dementia, and scores of 24 and below indicate moderate - severe dementia. You might consider administering the Brief Cognitive Impairment Scale (BCIS?) for scores in the moderate - severe range to get even more information about cognitive and behavioral functioning. The BCIS? is designed for patients with severe cognitive impairment and can be completed interactively on the BCAT? website (www.[employer].OQVestir). Total Contextual Memory Factor (CMF) Score: 10 The Contextual Memory Factor (CMF) indicates current verbal memory skills. It is highly predictive of cognitive diagnosis (MCI versus dementia) and instrumental activities of daily living (IADL). It is also sensitive to those who have amnestic MCI (and who do not have dementia). The score range is 0-15. Scores below 12 typically indicate significant memory concerns that can impact everyday living. A score of 14, combined with a total BCAT? score in the MCI range, is often associated with [id number]. When this occurs, a review of executive functions and other cognitive domains may be helpful. Total Executive Control Functions Factor (ECFF) Score: 2 The Executive Control Functions Factor (ECFF) indicates current executive control functions abilities. There is a strong correlation between ECFF and predicting everyday activities of daily living, especially the higher order skills involving judgment, problem-solving, and reasoning. The score range is 0- 7. Scores below 5 generally indicate problems in executive control that could interfere with successful independent living. Some people have problems with exe cutive functions but have relatively intact memory skills. When this occurs, the subtype of executive MCI may be indicated. Total Complex Attention Factor (CAF) Score: 8 Complex attention is an essential cognitive domain. It includes immediate, selective, and divided attention skills. It is highly associated with the ability to perform basic and complex activities of daily living. The Complex Attention Factor score (CAF) predicts ADL and IADL abilities and empirically measures the attentional skills necessary for independent functioning. Lower scores are associated with weaker performance, whereas higher scores suggest stronger abilities. Scores of 7-8 are within the normal/adequate range, and persons with these results may demonstrate higher levels of independence. Scores below 7 indicate likely attentional deficits, the need for more supervision or assistance, and higher risk for safety concerns and errors when completing basic or complex functional tasks. Please note that the CAF has a low performance threshold so most people should score in the adequate range. Total Cognitive Task Mason Tender Restoration Labor (CTM) Score: 20 The Cognitive Task Mason Tender Restoration Labor (CTM) integrates an individual?s performance in three primary cognitive domains: contextual memory, executive control functions, and complex attention. Together, these skills are among the most powerful predictors of chang outcomes, including performance of basic and complex activities of daily living. The CTM score informs clinicians and families about impairments that can impact functional performance and highlight each individual?s risk for falls and adverse events at home, rehospitalizations and the need for residential support. The CTM score should be considered as part of a comprehensive assessment and be used to guide treatment interventions that address these underlying skill areas and promote a safe and sustainable transition to the next level of care. The CTM is an important clinical tool that informs the plan of care and should be used to identify persons at higher risk for cognitively related functional deficits. When interpreting the CTM score, it is helpful to recognize what scores indicate normal functioning and what scores indicate higher risk. CTM scores in the 26-30 range are within normal limits. These patients have relatively low risk. CTM scores in the 20-25 range indicate moderate risk. CTM scores below 20 indicate relatively high risk. Follow Up Care Please Follow Up With: Mary Ann Grant MD When: As scheduled. Discharge Plan Admission Admit Date/Time: 04/20/22 15:14 Primary Reason for Your Visit: Debility. Attending Provider: Valdemar Mclaughlin Chi Primary Care Provider: Michael Moore Instructions Additional Instructions / Restrictions: Discharge to [facility] 04/30/2022, PT/OT/ST. Discharge Orders/Prescriptions Prescriptions: Continued allopurinol 300 mg tablet 300 mg PO DAILY Label Comments: TAKE 1 TABLET BY MOUTH EVERY DAY lovastatin 20 mg tablet 20 mg PO DAILY Label Comments: TAKE 1 TABLET BY MOUTH EVERY DAY acetaminophen [Tylenol] 325 mg Tablet 650 mg PO Q6H PRN PRN (Reason: Pain Score 1-10/Temp > 100.7 F) Qty: 0 0RF citalopram 10 mg tablet 10 mg PO DAILY potassium chloride [Klor-Con M20] 20 mEq tablet,ER particles/crystals 20 meq PO BIDCM atenolol 50 mg tablet 50 mg PO DAILY Discontinued cefdinir 300 mg capsule 300 mg PO BID Ensure Clear Liquid 120 ml PO 4X/DAY Referrals / Follow Up: Michael Moore DO [Primary Care Provider] - Disposition Disposition (needs filled in before D/C Order can be placed): Assisted Living
[2022-04-28] MEDS: Atorvastatin Calcium 10 MG Tablet 5 MG PO (20:00)
[2022-04-29] MEDS: Arthritis Pain Compound 60 CLICK TUBE TOPICAL ×2 (04:53→17:47)
[2022-04-29] MEDS: Atenolol 25 MG Tablet PO (04:53)
[2022-04-29] MEDS: Citalopram 10 MG Tablet PO (04:53)
[2022-04-29 04:56] VITALS: BP 119/63; PULSE 52
--- NOTE | 2022-04-29 06:56 | NURSING ---
While at Nurses station, this Nurse heard a loud boom! Went to investigate and heard patient yell, help! Patient found on floor in front of recliner. At this time patient denies any injuries or pain.
--- NOTE | 2022-04-29 07:17 | NURSING ---
Patient making no c/o pain. Does have an abrasion on right elbow, cleaned and bandaid placed for comfort. notified at 0715.
[2022-04-29] MEDS: Potassium Chloride Oral Tablet 20 MEQ PO ×2 (07:50→17:47)
[2022-04-29] MEDS: Allopurinol 300 MG Tablet PO (07:50)
[2022-04-29 14:00] VITALS: BP 118/67; PULSE 55; RESP 16; TEMP 36.3; O2SAT 98
[2022-04-29 22:00] VITALS: PULSE 54; RESP 16; O2SAT 94
[2022-04-29] MEDS: Atorvastatin Calcium 10 MG Tablet 5 MG PO (22:19)
[2022-04-30] MEDS: Arthritis Pain Compound 60 CLICK TUBE TOPICAL (05:50)
[2022-04-30] MEDS: Citalopram 10 MG Tablet PO (05:50)
[2022-04-30] MEDS: Atenolol 25 MG Tablet PO (05:50)
[2022-04-30] MEDS: Potassium Chloride Oral Tablet 20 MEQ PO (08:19)
[2022-04-30] MEDS: Allopurinol 300 MG Tablet PO (08:19)
[2022-04-30 08:25] VITALS: BP 115/96; PULSE 57; RESP 16; TEMP 36.4; O2SAT 98
[2022-04-30 08:26] VITALS: PULSE 57; RESP 16; O2SAT 97
--- NOTE | 2022-04-30 10:09 | NURSING ---
report called to [facility].
--- NOTE | 2022-05-03 13:13 | MDS.RN ---
Information for the mds was obtained from review of the clinical record, interview of resident, staff, and direct observation of resident's care.
== END 2022-04-30 10:13 | disposition home or self-care (01) | DRG 690 ==
PROVIDERS: Admitting Provider Family Medicine Geriatric Medicine; PCP Preventive Medicine Occupational Medicine; Visit Provider Family Medicine Geriatric Medicine
DX: N39.0 Urinary tract infection, site not specified (principal); G91.2 (Idiopathic) normal pressure hydrocephalus; N18.32 Chronic kidney disease, stage 3b; I12.9 Hypertensive chronic kidney disease with stage 1 through stage 4 chronic kidney disease, or unspecified chronic kidney disease; M10.9 Gout, unspecified; E78.5 Hyperlipidemia, unspecified; B96.20 Unspecified Escherichia coli [E. coli] as the cause of diseases classified elsewhere; F32.A Depression, unspecified; Z79.899 Other long term (current) drug therapy
CPT/HCPCS: 36415; 73562; 80048; 85025; 87811; 92507; 92523; 97110; 97116; 97162; 97166; 97530; 97535; 97802

== ENCOUNTER 2023-02-21 03:31 | Emergency (ER) | payer MEDICARE, SELFPAY ==
[2023-02-21 03:31] VITALS: PULSE 84; RESP 16; TEMP 37.1; O2SAT 95; BMI 50.4
[2023-02-21 03:34] VITALS: BP 178/149; PULSE 59; RESP 16; TEMP 37.1; O2SAT 95
[2023-02-21 03:37] VITALS: BP 155/71
--- NOTE | 2023-02-21 03:48 | RAD_ITS ---
INDICATION: atraumatic knee pain EXAMINATION/TECHNIQUE: X-RAY - RIGHT XR Knee 1 or 2 Views 2 VIEWS COMPARISON: FINDINGS: SOFT TISSUES: No soft tissue swelling or gas. No radiopaque foreign body. BONES/JOINTS: No acute fracture or subluxation.. Severe degenerative arthrosis more prominent in the patellofemoral joint. No sclerotic or destructive changes observed. RAD/Knee 1 or 2 Views IMPRESSION: Severe degenerative arthrosis more prominent in the patellofemoral joint. Electronically Signed: Dulce Pugh MD at 4:11 EDT ,
--- NOTE | 2023-02-21 03:49 | ED.VIS.LOWEX ---
HPI History of Present Illness HPI Narrative: 82-year-old female with right knee pain for a week. Denies any fall injury or trauma. Patient has not walked for some time she is basically bedbound and is a [facility] lift at the senior living. She has a history of gout. Denies any fever. Chief Complaint: Lower Extremity Injury Informant: patient Occured/Mechanism Mechanism/Context: No injury and No blunt trauma Onset/Context/Timing Onset: Days Context: Gradual Onset Timing: Continuous Current Severity: Mild Maximum Severity: Mild Associated Symptoms Associated Symptoms: Negative for Parasthesia, Weakness or Loss of Funtion Narrative Narrative: 82-year-old female who is bedbound and a [employer]ardo lift. DNR comfort care. History of gout. Complaining of atraumatic right knee pain. Denies fall. Denies fever. No prior knee surgery. Resides at a local senior living. Prior similar symptoms: Yes Recent Illness/Hospitalization: No PFSH PFSH Medical History Breast cancer Dementia Hydrocephalus Hyperlipidemia Hypertension Kidney disease Stage 3b chronic kidney disease (CKD) Home Medications allopurinol 300 mg tablet 300 mg PO DAILY Gout 04/02/22 [History Last Taken Unknown] lovastatin 20 mg tablet 20 mg PO DAILY Cholesterol 04/02/22 [History Last Taken 04/01/22] acetaminophen 325 mg tablet (Tylenol) 650 mg PO Q6H PRN PRN Pain Score 1-10/Temp > 100.7 F #0 tabs 04/20/22 [Rx Last Taken Unknown] atenolol 50 mg tablet 50 mg PO DAILY BP 04/20/22 [History Last Taken Unknown] citalopram 10 mg tablet 10 mg PO DAILY mood 04/20/22 [History Last Taken Unknown] potassium chloride 20 mEq tablet,extended release(part/cryst) (Klor-Con M) 20 meq PO BIDCM potassium supplement 04/20/22 [History Last Taken Unknown] Allergy/AdvReac Type Severity Reaction Status Date / Time No Known Allergies Allergy Verified 04/02/22 20:59 Family History Other Alzheimer's dementia CVA (cerebral vascular accident) Diabetes Surgical History H/O left mastectomy H/O: hysterectomy S/P hysterectomy Social History household members: spouse Smoking Status: Never smoker alcohol intake: never substance use type: does not use ROS ROS ED ROS Narrative Knee pain. Patient is demented a limited informant. Review of Systems ROS Unobtainable: Denies due to encephalopathy Constitutional Constitutional ED: Denies chills or fever(s) Eyes Eyes: Denies blurry vision ENT ENT ED: Denies ear pain Cardiovascular Cardiovascular: Denies chest pain Respiratory/Chest Respiratory/Chest: Denies cough Gastrointestinal Gastrointestinal: Denies abdominal pain Genitourinary Genitourinary ED: Denies dysuria Musculoskeletal Musculoskeletal: Denies arthralgias Integumentary Denies abscess Neurologic Neurologic: Denies headache(s) Psychiatric Psychiatric: Denies anxiety Endocrine Endocrinology: Denies polydipsia Hematologic/Lymphatic Hematologic/Lymphatic: Denies easy bleeding Allergic/Immunologic Allergic/Immunologic ED: Denies mouth swelling or tongue swelling EXAM Physical Exam Narrative Exam Narrative: 82-year-old no acute distress. Vital signs stable afebrile. H EENT exam unremarkable. Lungs clear. Heart regular rhythm rate about 70. Abdomen soft nontender. She moves her upper and left lower extremity. Her right knee is bent at 90 degrees. She holds underneath her other leg. There is no significant tenderness. It does not seem like she moves the right knee and may have a contracture. There is minimal swelling. No cellulitis. Does not appear to be a septic joint. No deformity. No bruising. Const Vital Signs: 02/21/23 03:31 02/21/23 03:34 02/21/23 03:37 Temperature 98.7 F 98.7 F Temperature Source Oral Oral Pulse Rate 84 59 L Respiratory Rate 16 16 Blood Pressure 178/149 H 155/71 H Blood Pressure Mean 158 99 Pulse Ox 95 95 Oxygen Delivery Method Room Air Room Air 02/21/23 05:38 Temperature 98.1 F Temperature Source Oral Pulse Rate 76 Respiratory Rate 15 Blood Pressure 134/68 H Blood Pressure Mean 90 Pulse Ox 94 Oxygen Delivery Method Positive well nourished, well developed and obese; Negative for cachectic, contractures or unkempt General Appearance ED: well developed and NAD; Negative for unkempt, cachectic or contractures Nutritional Appearance: obese; Negative for cachectic HEENT Reports moist mucous membranes normocephalic and atraumatic; Negative for trauma or tenderness Eyes PERRL General Eye ED: Negative for other Neck full ROM and supple Thyroid: Negative for tender Lymph Lymphatic: Negative for other Chest Wall inspection of chest normal and palpation of chest normal Chest: Negative for other Resp normal respiratory effort, no retractions and clear to auscultation bilaterally Effort and Inspection: Negative for pain with movement Auscultation: Negative for rales, rhonchi or wheezes Cardio regular rate, regular rhythm, S1 normal heart sound, S2 normal heart sound and no murmurs Rate: Negative for bradycardia or tachycardic Rhythm: Negative for abnormal rhythm GI non-tender, non-distended and no masses Inspection: Negative for abdominal distention Auscultation: normoactive bowel sounds Palpation: soft; Negative for tender Extremity Negative for normal to inspection or full ROM Extremity Narrative: Right knee flexed at 90 degrees. Mildly tender. No cellulitis. Decreased range of motion. No calf tenderness. General Extremety ED: Yes edema; Negative for cyanosis General Extremity: edema; Negative for cyanosis Neuro No oriented x3 Sensorium / Orientation: alert and oriented to person Motor Exam: general weakness Psych mental status grossly normal Appearance: Negative for unkempt Mood & Affect: Negative for anxious Skin no wounds Lesions: no lesions Rashes: no rashes Trauma: Negative for abrasion MDM MDM MDM Narrative Medical decision making narrative: 82-year-old right knee pain. I spoke to the [facility] the nurse there said her knee is normally extended and does not look like this. There is been no fall or trauma because the patient does not walk. An x-ray will be obtained. Repeat exam at 8 AM with the patient's present in the room unchanged. The knee does not look infected there is no cellulitis. There is very mild swelling. He and I went over the x-ray and I showed him how severely arthritic her right knee was. They did not want me to do an arthrocentesis. They did not want me to do a joint injection. Patient has not walked for 5 months. Her last physical therapy was around July or August and they stopped that because they did not think she was progressing with it. She will be discharged back to the extended care facility. She will use Tylenol Motrin for pain. History & Record Review Discussion w/independent historian: EMS personnel, Patient and Other (Extended-care facility.) Additional record(s) reviewed:: Prior inpatient record, Prior outpatient record, Prior ED visit and Prior labs Radiography Diagnostic Testing: Clinical Impression(s) from Imaging Studies Knee X-Ray 02/21/23 03:48 IMPRESSION: Severe degenerative arthrosis more prominent in the patellofemoral joint. Electronically Signed: Dulce Pugh MD at 4:11 EDT , Right knee x-ray, they could not get 2 views due to her inability to move the knee shows severe degenerative arthritis. Joint space narrowing. No acute fracture. No dislocation. Interpreted both by myself and the radiologist. Discharge Plan Triage Chief Complaint: Lower Extremity Injury ED Provider: Jassi Herzog Dx/Rx/DC Orders Clinical Impression: Acute knee pain, Degenerative joint disease, Arthritis of knee Instructions: ED Osteoarthritis Prescriptions: No Action allopurinol 300 mg tablet 300 mg PO DAILY Label Comments: TAKE 1 TABLET BY MOUTH EVERY DAY lovastatin 20 mg tablet 20 mg PO DAILY Label Comments: TAKE 1 TABLET BY MOUTH EVERY DAY acetaminophen [Tylenol] 325 mg Tablet 650 mg PO Q6H PRN PRN (Reason: Pain Score 1-10/Temp > 100.7 F) Qty: 0 0RF citalopram 10 mg tablet 10 mg PO DAILY potassium chloride [Klor-Con M20] 20 mEq tablet,ER particles/crystals 20 meq PO BIDCM atenolol 50 mg tablet 50 mg PO DAILY Primary Care Provider: To Eisenberg Referrals: To Eisenberg MD [Primary Care Provider] - As Needed Michael Moore DO [Non-Staff] - Activity Restrictions/Additional Instructions: Knee pain mild swelling is most likely from degenerative arthritis could possibly secondary to gout. Patient did not want me to do a knee injection or arthrocentesis. Tylenol and Motrin for pain. Follow-up with the er medical technician of the extended care facility for further evaluation. At this time it does not look infected. Disposition Disposition: Home, Self Care
[2023-02-21 05:38] VITALS: BP 134/68; PULSE 76; RESP 15; TEMP 36.7; O2SAT 94
[2023-02-21 09:12] VITALS: RESP 18
== END 2023-02-21 09:13 | disposition home or self-care (01) ==
PROVIDERS: Emergency Provider Emergency Medicine; PCP Family Medicine; Visit Provider Emergency Medicine
DX: M25.561 Pain in right knee (principal); F03.90 Unspecified dementia, unspecified severity, without behavioral disturbance, psychotic disturbance, mood disturbance, and anxiety; N18.32 Chronic kidney disease, stage 3b; E78.5 Hyperlipidemia, unspecified; I12.9 Hypertensive chronic kidney disease with stage 1 through stage 4 chronic kidney disease, or unspecified chronic kidney disease; M13.869 Other specified arthritis, unspecified knee; Z79.899 Other long term (current) drug therapy
CPT/HCPCS: 73560; 99284